=== PATIENT | male | born 1950 | race American Indian/Alaskan Native ===

== ENCOUNTER 2016-12-12 19:28 | Inpatient (IN) | payer MEDICARE, BC ==
--- NOTE | 2016-12-12 20:10 | ED PDOC ---
Arrival/HPI - General Historian: Patient - History of Present Illness Time/Duration: 1 week Symptom Onset: Gradual Symptom Course: Worsening Activities at Onset: Rest, Light Context: Home <HOLLY ORTIZ - Last Filed: 12/12/16 19:56> <Chaim Perkins - Last Filed: 12/14/16 22:57> - General Chief Complaint: Shortness Of Breath Time Seen by Provider: 12/12/16 19:30 - History of Present Illness Narrative History of Present Illness (Text): 12/12/16 19:56 Mr. Tellez is a 66 year old male with a past medical history significant for CHF, Atrial Fibrillation, COPD, CKD on HD (Monday, and Monday) and GERD who presents with a chief complaint of SOB and cough productive of clear and sometimes yellow sputum with associated rhinorrhea for one weeks duration. Patient states that he has been getting SOB after walking several feet, which is a change from his baseline of being able to walk several blocks without difficulty. He reports that his cough began around the same time and has been worsening since onset. 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 Patient also reports being out of his GERD medication for two weeks and has been having indigestion. Patient normally receives his healthcare in [place], where he lives, but he is in [place] visiting his daughter. He states that he was going to try and "wait it out" until his dialysis appointment tomorrow but decided that he best get checked out. He denies fever, chills, night sweats, weight loss, changes in his vision, ear pain, eye pain, sore throat, chest pain, palpitations, syncope, edema, hemoptysis, wheezing, abdominal pain, N/V, diarrhea, constipation, burning with urination, rash, or any numbness/tingling/weakness of any of his extremities. (HOLLY ORTIZ) Past Medical History - Provider Review Nursing Documentation Reviewed: Yes - Travel History Have you recently traveled outside US w/in the past 3 mons?: No - Past History Past History: Non-Contributing - Tetanus Immunization Tetanus Immunization: Unknown - Cardiac Hx Congestive Heart Failure: Yes - Renal Hx Dialysis: Yes (Monday, and Monday) - Psychiatric Hx Substance Use: No - Anesthesia Hx Anesthesia: Yes Hx Anesthesia Reactions: No Hx Malignant Hyperthermia: No <HOLLY ORTIZ - Last Filed: 12/12/16 19:56> Family/Social History - Physician Review Nursing Documentation Reviewed: Yes Family/Social History: Unknown Family HX Smoking Status: Former Smoker (Smoked 3ppd for 10 years prior to quitting at the age of 26) Hx Alcohol Use: Yes Frequency of alcohol use: Socially Hx Substance Use: No <HOLLY ORTIZ - Last Filed: 12/12/16 19:56> Allergies/Home Meds <HOLLY ORTIZ - Last Filed: 12/12/16 19:56> <Chaim Pekrins - Last Filed: 12/14/16 22:57> Allergies/Adverse Reactions: Allergies No Known Allergies Allergy (Verified 12/12/16 19:39) Home Medications: Home Meds Medication Instructions Recorded Confirmed Pantoprazole Sodium [Protonix] 40 mg PO DAILY 12/13/16 12/13/16 Sevelamer [Renagel] 800 mg PO TID 12/13/16 12/13/16 Review of Systems - Physician Review All systems were reviewed & negative as marked: Yes - Review of Systems Constitutional: Normal. absent: Weight Change, Fevers, Night Sweats Eyes: Normal. absent: Vision Changes, Eye Pain ENT: Rhinorrhea, Other (Denies ear pain). absent: Normal, Sore Throat Respiratory: SOB, Cough, Sputum (Clear with yellow occasionally ). absent: Normal, Wheezing Cardiovascular: KAUR (After walking a few feet). absent: Normal, Chest Pain, Palpitations, Edema, Syncope Gastrointestinal: Other (Endorses indigestion). absent: Normal, Abdominal Pain , Constipation, Diarrhea, Nausea, Vomiting Genitourinary Male: Normal. absent: Dysuria Musculoskeletal: Normal Skin: Normal. absent: Rash Neurological: Normal, Other (Denies numbness/tingling/weakness of any extremity) . absent: Focal Weakness Endocrine: Normal Hemo/Lymphatic: Normal Psychiatric: Normal <HOLLY ORTIZ - Last Filed: 12/12/16 19:56> Physical Exam Vital Signs Reviewed: Yes Temperature: Afebrile Blood Pressure: Normal Pulse: Regular Respiratory Rate: Normal Appearance: Positive for: Well-Appearing, Non-Toxic, Comfortable Pain Distress: None Mental Status: Positive for: Alert and Oriented X 3 - Systems Exam Head: Present: Atraumatic, Normocephalic Pupils: Present: PERRL Extroacular Muscles: Present: EOMI Conjunctiva: Present: Normal Mouth: Present: Moist Mucous Membranes Pharnyx: Present: ERYTHEMA. No: Normal, EXUDATE, TONSILS ENLARGED, Peritonsilar Swelling, Uvular Deviation, Muffled/Hoarse Voice, Soft Palate/ Uvular Edema Nose (External): Present: Atraumatic Nose (Internal): Present: Normal Inspection. No: No Active Bleeding, Rhinorrhea Neck: Present: Normal Range of Motion, Trachea Midline. No: Meningeal Signs, MIDLINE TENDERNESS, Paraspinal Tenderness, JVD, Lymphadenopathy Respiratory/Chest: Present: Good Air Exchange, Rhonchi (scattered rhonchi/ coarse breath sounds throught bilateral lung goznalez). No: Clear to Auscultation , Respiratory Distress, Accessory Muscle Use, Wheezes, Decreased Breath Sounds, Rales, Retracting, Tachypneic, Tender to Palpation, Other Cardiovascular: Present: Regular Rate and Rhythm, Normal S1, S2, Peripheal Pulses Present. No: Murmurs, Irregular Rhythm, Tachycardic, Bradycardic Abdomen: Present: Normal Bowel Sounds. No: Tenderness, Distention, Peritoneal Signs Back: Present: Normal Inspection. No: CVA Tenderness, Midline Tenderness, Paraspinal Tenderness Upper Extremity: Present: Normal Inspection, Normal ROM, NORMAL PULSES, Capillary Refill < 2s. No: Cyanosis, Edema Lower Extremity: Present: NORMAL PULSES, Normal ROM, Capillary Refill < 2 s, Other (Dried skin plaques to bilateral lower extremities extending to mid-calf) . No: Normal Inspection, Edema, CALF TENDERNESS Neurological: Present: GCS=15, CN II-XII Intact, Speech Normal Skin: Present: Warm, Dry, Rashes (refer to above LE section), Normal Color Lymphatic: No: Cervical Adenopathy Psychiatric: Present: Alert, Oriented x 3, Normal Insight, Normal Concentration <HOLLY ORTIZ - Last Filed: 12/12/16 19:56> Vital Signs Temp Pulse Resp BP Pulse Ox 12/13/16 00:10 18 96 12/13/16 00:06 98.1 F 73 18 138/59 L 96 12/12/16 19:42 18 12/12/16 19:28 97.8 F 70 20 140/64 93 L Medical Decision Making - Lab Interpretations I have reviewed the lab results: Yes - RAD Interpretation Deputy Sheriff/Investigator: Radiologist - EKG Interpretation Interpreted by ED Physician: Yes Type: 12 lead EKG <HOLLY ORTIZ - Last Filed: 12/12/16 19:56> <Chaim Perkins - Last Filed: 12/14/16 22:57> ED Course and Treatment: 12/12/16 20:16 Impression: 66 year old male with a past medical history significant for CHF, Atrial Fibrillation, COPD, CKD on HD (Monday, and Monday) and GERD who presents with a chief complaint of SOB and cough productive of clear and sometimes yellow sputum with associated rhinorrhea for one weeks duration Plan: -CBC, CMP, PT/INR, aPTT, Cardiac Iso's, BNP, VBG and Blood Culture -EKG -Chest X-Ray -O2 via NC at 3lpm -Reassess and disposition Prior Visits: No previous visits (HOLLY ORTIZ) Impression: Pt seen and evaluated with medical record assistant. Pt, whose past medical history includes CHF, atrial fibrillation, CKD on HD (Monday, and Monday) and GERD, presented for shortness of breath, productive cough with clear/ yellowish sputum, and rhinorrhea. Aware and agree with HPI, clinical findings, plan, and management. Plan: -- EKG -- Chest X-ray -- Labs, cardiac enzymes, BNP, blood cultures, VBG -- Protonix -- Reassess and disposition (Chaim Perkins) - Lab Interpretations Microbiology Results: Microbiology Results 12/12/16 20:15 Blood-Venous Blood Culture - Preliminary NO GROWTH AFTER 48 HOURS 12/12/16 20:00 Blood-Venous Blood Culture - Preliminary NO GROWTH AFTER 48 HOURS Lab Results: 12/13/16 06:28 12/13/16 06:28 Lab Results 12/13/16 21:19: POC Glucose (mg/dL) 104 12/13/16 16:18: POC Glucose (mg/dL) 171 H 12/13/16 09:35: Ferritin 648.0 12/13/16 09:35: Transferrin 199.33 L 12/13/16 09:35: Iron 196 H, TIBC 251 L, % Saturation 78 H 12/13/16 07:39: POC Glucose (mg/dL) 93 12/13/16 06:28: Lactate Dehydrogenase 413, Total Creatine Kinase 120, Troponin I 0.09, NT-Pro-B Natriuret Pep 72043 H 12/13/16 06:28: TSH 3rd Generation 0.10 L 12/13/16 06:28: Sodium 144, Chloride 101, Potassium 4.2, Carbon Dioxide 26, Anion Gap 21 H, BUN 74 H, Creatinine 12.1 H*, Est GFR ( Amer) 5, Est GFR (Non-Af Amer) 4, Random Glucose 92, Calcium 9.5 12/13/16 06:28: WBC 7.3, RBC 3.45 L, Hgb 9.9 L, Hct 31.9 L, MCV 92.5, MCH 28.7, MCHC 31.0, RDW 15.6 H, Plt Count 226, MPV 9.2 12/12/16 21:00: Hemoglobin A1c 6.3 12/12/16 21:00: Iron 95, TIBC 270, % Saturation 35 12/12/16 21:00: Triglycerides 93, Cholesterol 128 L, LDL Cholesterol Direct 31, HDL Cholesterol 38, Vitamin B12 992 H, Folate > 20.0 12/12/16 21:00: Sodium 143, Chloride 100, Potassium 4.3, Carbon Dioxide 27, Anion Gap 20, BUN 70 H, Creatinine 11.7 H*, Est GFR ( Amer) 5, Est GFR ( Non-Af Amer) 4, Random Glucose 78, Calcium 9.8, Total Bilirubin 0.6, AST 33, ALT 37, Alkaline Phosphatase 81, Lactate Dehydrogenase 422, Total Creatine Kinase 114, Troponin I 0.08, NT-Pro-B Natriuret Pep 84486 H, Total Protein 7.2, Albumin 4.1, Globulin 3.2, Albumin/Globulin Ratio 1.3 12/12/16 21:00: PT 11.2, INR 1.04, APTT 27.2 12/12/16 21:00: WBC 7.2, RBC 3.61, Hgb 10.4 L, Hct 33.3 L, MCV 92.2, MCH 28.8, MCHC 31.2, RDW 15.4 H, Plt Count 235, MPV 9.3, Gran % 68.8 H, Lymph % (Auto) 18.4 L, Clare % (Auto) 6.5 H, Eos % (Auto) 5.7 H, Baso % (Auto) 0.6, Gran # 4.94 , Lymph # 1.3, Clare # 0.5, Eos # 0.4, Baso # 0.04 12/12/16 20:19: pO2 40, VBG pH 7.31 L, VBG pCO2 57.0, VBG HCO3 28.7 H, VBG Total CO2 30.4 H, VBG O2 Sat (Calc) 78.0 H, VBG Base Excess 1.2, VBG Potassium 6.3 H*, Sodium 137.0, Chloride 103.0, Glucose 84, Lactate 1.8, FiO2 21.0, Venous Blood Potassium 6.3 H* - RAD Interpretation Radiology Orders: 12/12/16 19:53 CHEST PORTABLE [RAD] Stat - Medication Orders Current Medication Orders: Acetaminophen (Tylenol 325mg Tab) 650 mg PO Q4H PRN PRN Reason: Pain, Mild (1-3) Albuterol/Ipratropium (Duoneb 3 Mg/0.5 Mg (3 Ml) Ud) 3 ml IH [id number] PRN PRN Reason: Shortness of Breath Last Admin: 12/14/16 13:40 Dose: 3 ml Arformoterol Tartrate (Brovana) 15 mcg IH [id number] [facility] Last Admin: 12/14/16 07:51 Dose: 15 mcg Aspirin (Ecotrin) 81 mg PO DAILY [facility] Last Admin: 12/14/16 10:06 Dose: 81 mg Benzonatate (Tessalon Perles) 100 mg PO TID [facility] Last Admin: 12/14/16 19:52 Dose: Not Given Non-Admin Reason: Patient in Dialysis Budesonide (Pulmicort Respules) 0.5 mg IH [id number] [facility] Last Admin: 12/14/16 07:51 Dose: 0.5 mg Guaifenesin/Dextromethorphan (Robitussin Dm) 5 ml PO Q6H PRN PRN Reason: Cough Last Admin: 12/14/16 21:30 Dose: 5 ml Heparin Sodium (Porcine) (Heparin) 5,000 units SC Q8 ABEL PRN Reason: Protocol Last Admin: 12/14/16 21:25 Dose: 5,000 units Subcutaneous Administrations Document 12/14/16 21:25 KTB (Rec: 12/14/16 21:27 KTB [id number]) Injection Site MAR Injection Site Left Abdomen Charges for Administration # of Subcutaneous Administrations 1 Levofloxacin/Dextrose (Levaquin 250mg) 250 mg in 50 mls @ 50 mls/hr IVPB QOTHERDAY [facility] Insulin Human Regular (Humulin R Low) 0 units SC ACHS ABEL PRN Reason: Protocol Last Admin: 12/14/16 21:27 Dose: Not Given Non-Admin Reason: Blood Sugar Parameter MAR Blood Glucose Document 12/14/16 21:27 KTB (Rec: 12/14/16 21:27 KTB [id number]) Blood Glucose Finger Stick Blood Glucose (70-120) 136 Methylprednisolone (Solu-Medrol) 20 mg IVP Q12 [facility] Last Admin: 12/14/16 21:29 Dose: 20 mg IVP Administration Document 12/14/16 21:29 KTB (Rec: 12/14/16 21:30 KTB [id number]) Charges for Administration # of IVP Administrations 1 Montelukast Sodium (Singulair) 10 mg PO HS [facility] Last Admin: 12/14/16 21:28 Dose: 10 mg Pantoprazole Sodium (Protonix Ec Tab) 20 mg PO 0600 [facility] Last Admin: 12/14/16 05:12 Dose: 20 mg Sevelamer HCl (Renagel) 800 mg PO WM [facility] Last Admin: 12/14/16 19:52 Dose: Not Given Non-Admin Reason: Patient in Dialysis Discontinued Medications Acetaminophen (Tylenol 325mg Tab) 975 mg PO STAT STA Stop: 12/12/16 22:08 Last Admin: 12/12/16 22:51 Dose: Not Given Non-Admin Reason: Patient Refused Albuterol/Ipratropium (Duoneb 3 Mg/0.5 Mg (3 Ml) Ud) 3 ml IH [id number] [facility] Last Admin: 12/13/16 07:30 Dose: 3 ml Levofloxacin/Dextrose (Levaquin 750mg) 750 mg in 150 mls @ 100 mls/hr IVPB STAT STA Stop: 12/12/16 23:45 Last Admin: 12/13/16 00:19 Dose: 100 mls/hr eMAR Start Stop Document 12/13/16 00:19 HENRY (Rec: 12/13/16 00:20 [facility] [id number]) Intravenous Solution Start Date 12/12/16 Start Time 22:50 End Date 12/13/16 End time 00:20 Total Infusion Time 90 Levofloxacin/Dextrose (Levaquin 500mg) 500 mg in 100 mls @ 100 mls/hr IVPB DAILY ABEL Stop: 12/13/16 10:59 Last Admin: 12/13/16 18:31 Dose: 100 mls/hr eMAR Start Stop Document 12/13/16 18:31 GE (Rec: 12/13/16 18:31 GE [id number]) Intravenous Solution Start Date 12/13/16 Start Time 18:31 End Date 12/13/16 End time 19:31 Total Infusion Time 60 Methylprednisolone (Solu-Medrol) 40 mg IVP Q12 [facility] Last Admin: 12/14/16 10:06 Dose: 40 mg IVP Administration Document 12/14/16 10:06 J (Rec: 12/14/16 10:06 J [id number]) Charges for Administration # of IVP Administrations 1 Morphine Sulfate (Morphine) 2 mg IVP STAT STA Stop: 12/12/16 22:57 Last Admin: 12/12/16 23:26 Dose: 2 mg MAR Pain Assessment Document 12/12/16 23:26 EQ (Rec: 12/12/16 23:27 EQ [id number]) Pain Reassessment Is this a pain reassessment? No Sleep Is patient sleeping during reassessment? No Presence of Pain Presence of Pain Yes IVP Administration Document 12/12/16 23:26 EQ (Rec: 12/12/16 23:27 EQ [id number]) Charges for Administration # of IVP Administrations 1 Re-Assess: MAR Pain Assessment Document 12/13/16 00:26 GE (Rec: 12/13/16 07:42 GE [id number]) Pain Reassessment Is this a pain reassessment? Yes Sleep Is patient sleeping during reassessment? No Presence of Pain Presence of Pain No Pain Scale Used Pain Scale Used Numeric Pantoprazole Sodium (Protonix Ec Tab) 40 mg PO STAT STA Stop: 12/12/16 20:25 Last Admin: 12/12/16 21:39 Dose: 40 mg Sevelamer HCl (Renagel) 800 mg PO TID ABEL Last Admin: 10/17/17 18:31 Dose: 800 mg - PA / HONING MACHINE OPERATOR PRODUCTION / Resident Statement /DO has reviewed & agrees with the documentation as recorded. / has examined the patient and agrees with the treatment plan. <Chaim Perkins - Last Filed: 12/14/16 22:57> Disposition/Present on Arrival - Present on Arrival History of DVT/PE: No History of Uncontrolled Diabetes: No Urinary Catheter: No History of Decub. Ulcer: No History Surgical Site Infection Following: None <HOLLY ORTIZ - Last Filed: 12/12/16 19:56> - Present on Arrival Any Indicators Present on Arrival: No - Disposition Have Diagnosis and Disposition been Completed?: Yes Disposition Time: 22:00 <Chaim Perkins - Last Filed: 12/14/16 22:57> - Disposition Diagnosis: Pneumonia Disposition: HOSPITALIZED Condition: GOOD
[2016-12-12] MEDS ORDERED: Pantoprazole 40 mg EC Tab PO STA (20:24)
[2016-12-12 20:33] LABS: VENOUS BLOOD GAS BASE EXCESS 1.2 mmol/L (0.0-2.0); VENOUS BLOOD PH 7.31 (7.32-7.43)
[2016-12-12 21:14] LABS: BASO # 0.04 K/mm3 (0.0-2.0); BASO % 0.6 % (0.0-3.0); EOS # 0.4 (0.0-0.7); EOS % 5.7 % (1.5-5.0); GRAN # 4.94 (1.4-6.5); GRAN % 68.8 % (50.0-68.0); HEMATOCRIT 33.3 % (42.0-52.0); LYMPH # 1.3 (1.2-3.4); LYMPH % 18.4 % (22.0-35.0); MEAN CELL VOLUME 92.2 fl (80.0-105.0); MEAN CORPUSCULAR HEMOGLOBIN 28.8 pg (25.0-35.0); MEAN CORPUSCULAR HGB CONC 31.2 g/dl (31.0-37.0); MEAN PLATELET VOLUME 9.3 fl (7.0-11.0); MONO # 0.5 (0.1-0.6); MONO % 6.5 % (1.0-6.0); RED CELL DISTRIBUTION WIDTH 15.4 % (11.5-14.5); WHITE BLOOD COUNT 7.2 10^3/ul (4.5-11.0)
[2016-12-12 21:21] LABS: ALB/GLOB RATIO 1.3 (1.1-1.8); BILIRUBIN,TOTAL 0.6 mg/dL (0.2-1.3); CALCIUM 9.8 mg/dL (8.4-10.5); POTASSIUM 4.3 mmol/L (3.6-5.0); TOTAL PROTEIN 7.2 g/dL (5.8-8.3)
[2016-12-12 21:22] LABS: INR 1.04 (0.93-1.08); PARTIAL THROMBOPLASTIN TIME 27.2 Seconds (23.7-30.8)
[2016-12-12 21:32] LABS: TROPONIN I 0.08 ng/mL
[2016-12-12] MEDS: levoFLOXacin 750 mg in D5W 750 MG/150 ML BAG IVPB STA (22:51)
[2016-12-12] MEDS ORDERED: Morphine 2 mg/ml ISec IVP STA (22:56)
[2016-12-12] MEDS ORDERED: HYDROmorphone 0.5 mg/0.5 ml ISec IVP PRN (23:51)
[2016-12-13] MEDS: levoFLOXacin 750 mg in D5W 750 MG/150 ML BAG IVPB STA (00:19)
[2016-12-13 00:43] LABS: CHOLESTEROL 128 mg/dL (130-200); IRON 95 ug/dL (45-180)
[2016-12-13] MEDS: Albuterol-Ipratrop 3 mg / 0.5 (3 ml) UD IH SCH ×2 (02:23→07:30)
[2016-12-13 06:36] LABS: HEMATOCRIT 31.9 % (42.0-52.0); MEAN CELL VOLUME 92.5 fl (80.0-105.0); MEAN CORPUSCULAR HEMOGLOBIN 28.7 pg (25.0-35.0); MEAN PLATELET VOLUME 9.2 fl (7.0-11.0); RED CELL DISTRIBUTION WIDTH 15.6 % (11.5-14.5); WHITE BLOOD COUNT 7.3 10^3/ul (4.5-11.0)
[2016-12-13 06:58] LABS: CALCIUM 9.5 mg/dL (8.4-10.5); POTASSIUM 4.2 mmol/L (3.6-5.0)
[2016-12-13 07:04] LABS: TROPONIN I 0.09 ng/mL
[2016-12-13] MEDS: Insulin Reg-LOW-Coverage SC SCH ×4 (07:39→21:35)
--- NOTE | 2016-12-13 08:46 | RAD ---
HISTORY: sob COMPARISON: No prior. FINDINGS: LUNGS: No active pulmonary disease. PLEURA: No significant pleural effusion identified, no pneumothorax apparent. CARDIOVASCULAR: Normal. OSSEOUS STRUCTURES: No significant abnormalities. VISUALIZED UPPER ABDOMEN: Normal. OTHER FINDINGS: None. IMPRESSION: No active disease.
--- NOTE | 2016-12-13 09:07 | HP ---
CHIEF COMPLAINT: Shortness of breath and coughing. HISTORY OF PRESENT ILLNESS: Mr. Tellez is a 66-year-old, my private patient with significant history of congestive heart failure COPD, on hemodialysis, Monday, and Monday and GERD, who came to the emergency room with chief complaints of shortness of breath, coughing up productive of clear and sometimes yellow sputum with associated rhinorrhea for one week. The patient states that he was getting shortness of breath after walking several feet in cold air, which is changed from his baseline to being able to walk several blocks without difficulty. He report that his cough began around the same time and has been worsening since that. The patient has nebulizer treatment at home, but was not helping with minimal relief. The patient reports has history of GERD, indigestion, obesity. The patient used to live in [place], now he moves to [place] visiting his daughter. Actually the patient was getting sob at home and planed that when he will go for dialysis will take care of that, but shortness of breath increased, so he came. PAST MEDICAL HISTORY: As above; renal sufficiency, getting dialysis Monday, and Monday. FAMILY HISTORY: Father and mother noncontributory. HABITS: Former smoker. Used to smoke three packs per day for 10 years prior to quitting at the age of 26, history of ethanol abuse, alcohol abuse socially, substance abuse. ALLERGIES: THE PATIENT IS NOT ALLERGIC WITH ANY MEDICATIONS. HOME MEDICATIONS: Reviewed by me. REVIEW OF SYSTEMS: The patient was seen and examined in the emergency room, looking comfortable, except coughing and shortness of breath after walking a few minutes. No chest pain, palpitation, or edema. Having GERD and dyspepsia. No nausea, vomiting, or diarrhea. No dysuria. No rash. Denies numbness and tingling and weakness of the extremities. PHYSICAL EXAMINATION: VITAL SIGNS: Temperature 97.8, pulse 70, respiratory rate 20, blood pressure 140/67, pulse oxymetry of 93. HEENT: Head; normocephalic and atraumatic. Eyes; PERRLA. Extraocular muscles are intact. Conjunctivae are clear. Nose is patent. Mucous membranes are moist. NECK: Supple. No carotid bruits. No JVD or thyromegaly. CHEST: Bilaterally symmetrical. HEART: S1 and S2 positive. LUNGS: Positive wheezing bilaterally. ABDOMEN: Soft. Bowel sound positive. No organomegaly. EXTREMITIES: No edema. No cyanosis. NEUROLOGIC: The patient is awake and alert. Moving all 4 extremities. LABORATORY DATA: White blood cells 7.2, hemoglobin 10.4, hematocrit 33.3, platelets 235. Sodium 143, potassium 4.3, BUN 70, creatinine 11.7. BNP 24,500. ASSESSMENT AND PLAN: Mr. Shayan Tellez is a 66-year-old male with anemia; renal insufficiency, acute of chronic, getting dialysis; congestive heart failure; history of chronic obstructive pulmonary disease; asthma; atrial fibrillation; on hemodialysis, Monday, and Monday; gastroesophageal reflux disease; dyspepsia; history of shortness of breath. Gastrointestinal and deep venous thrombosis prophylaxis. Called pulmonary consult. We will follow up. Dione Tijerina MD MTDD
[2016-12-13 09:54] LABS: IRON 196 ug/dL (45-180)
[2016-12-13] MEDS ORDERED: levoFLOXacin 500 mg in D5W 500 MG/100 ML BAG IVPB SCH (10:00)
[2016-12-13] MEDS ORDERED: Fluticasone-Salmeterol 250-50mcg Diskus IH SCH (10:00)
[2016-12-13] MEDS: MethylPREDNISolone 40 mg Vial IVP SCH ×2 (12:12→21:13)
[2016-12-13 13:13] LABS: FOLATE > 20.0 ng/mL
--- NOTE | 2016-12-13 17:06 | CON ---
DATE: 12/13/2016 REFERRING PHYSICIAN: Dr. Tijerina. REASON FOR CONSULTATION: Continuation of dialysis secondary to end-stage renal disease. CHIEF COMPLAINT AND HISTORY OF PRESENT ILLNESS: This is a 66-year-old male, who has come into the hospital with past medical history of end-stage renal disease on hemodialysis Monday, , and Monday at [facility] in [place]. The patient says that he was complaining of shortness of breath. He was having cough it was productive at times with yellow sputum. He says he last dialyzed on Monday and his next dialysis is today. I had spoken to the patient's dialysis unit and the head nurse, Heriberto, states that the patient does have a history of nonadherence to his regimen. He has a history of atrial fibrillation, CHF, GERD. The patient says he was visiting his daughter here in [place] and was going back, but was not able to make it because he became more short of breath. He reports that he continues to have the cough. He has no complaints of any fevers or chills. No nausea. No vomiting. No weakness in the arms or in the legs. No headaches. No fevers. REVIEW OF SYSTEMS: All other review of symptoms are within normal limits except as mentioned. ALLERGIES: NO KNOWN DRUG ALLERGIES. HOME MEDICATIONS: Not known. SOCIAL HISTORY: He was the former smoker, he smoked 3 packs per day for 10 years and quit at the age of 26. FAMILY HISTORY: Noncontributory. PAST MEDICAL HISTORY: Please see above, but also end-stage renal disease, COPD and sleep apnea. PAST SURGICAL HISTORY: Left AV fistula. PHYSICAL EXAMINATION: VITAL SIGNS: Temperature is 97.6, pulse of 68, blood pressure is 128/65, respirations 20 and O2 saturations 97%. Height is 6 feet 1 inch and weight is 251 pounds. BMI is 33.2. GENERAL: The patient lying in bed, uncomfortable, and in no acute distress. HEENT: Atraumatic and normocephalic. Anicteric sclerae. Moist mucosa. [place] conjunctivae. No oral lesions. NECK: No JVD, anterior and posterior adenopathy, thyromegaly, or bruits. CARDIOVASCULAR: S1 and S2 regular. No murmur, rubs, or gallop. LUNGS: Clear to auscultation bilaterally. No wheezes, rales, or rhonchi. ABDOMEN: Bowel sounds are positive. Soft, nontender and nondistended. No hepatosplenomegaly. No rebound and no guarding NEUROLOGIC: No facial asymmetry. Tongue is midline. No uvula deviation. Power is 5/5 upper extremity and lower extremity. Sensation intact in upper extremity and lower extremity. PSYCHIATRIC: She is awake, alert and oriented x3. No anxiety or depression. She has normal affect. GENITOURINARY: No CVA tenderness. VASCULAR: 2+ pulses in the carotid pulses and pedal pulses. SKIN: No erythema or nodules SPINE: Shows normal curvature. EXTREMITIES. In the left arm there is a fistula with good with good trill and bruit. In lower extremities there is 1+ edema. LABORATORY DATA: Have been reviewed, hemoglobin is 10.4. The patient's INR is 1.04. He has a creatinine of 12.1 with a potassium of 4.2. His proBNP is 25,700. His LDL is 31. His TSH is 0.1. His iron saturation of 35%. IMAGING: His chest x-ray done, it shows no active disease. His EKG shows atrial fibrillation with a rate of 62. ASSESSMENT: 1. End-stage renal disease, on hemodialysis. 2. Left arm arteriovenous fistula. 3. Hypovolemia. 4. Anemia secondary to chronic kidney disease. 5. Secondary hyperparathyroidism. PLAN: The patient was given Protonix. He was given IV steroids. The patient is on nebulizer treatment. The patient is going for dialysis today. I did arrange dialysis orders with the unit. I spoke with Heriberto at [facility] dialysis, her number is #[phone]. The patient is currently on renal diet this should be continued. His iron saturation is normal. He does not require IV iron. We will try to do a 4-hour treatment although he says he does not like to do 4-hour treatment. We will try to remove fluids, so he can breath better. Also, the patient will most likely need to be on binders. I will place the patient on Renagel. We will re-evaluate tomorrow. He should continue his dialysis treatment at his unit. Thank you for allowing me to participate in care of your patient. Erik Neff MD [facility] # [id number]
[2016-12-13] MEDS: Budesonide 0.5 mg/2 ml Inhal Susp UD IH SCH (19:36)
[2016-12-13] MEDS: Arformoterol 15 mcg/2 ml Inh Sol IH SCH (19:36)
--- NOTE | 2016-12-13 22:20 | CARD ---
APPROVED REPORT EKG Measurement Heart [id number] <Conclusion> Atrial fibrillation Nonspecific intraventricular conduction delay T wave abnormality, consider lateral ischemia or digitalis effect Abnormal ECG
[2016-12-14] MEDS: guaiFENesin DM 100 mg-10 mg/5 ml UD PO PRN ×2 (00:38→21:30)
[2016-12-14] MEDS: Pantoprazole 20 mg EC Tab PO SCH (05:12)
--- NOTE | 2016-12-14 06:16 | CON ---
PULMONARY CONSULTATION DATE: 12/13/2016 REASON FOR CONSULT: Sleep apnea syndrome, chronic obstructive lung disease, renal failure. HISTORY OF PRESENT ILLNESS: This is a 66-year-old gentleman with past medical history significant for chronic obstructive lung disease; congestive heart failure; renal failure, dialysis dependent; history of GERD; suspected sleep apnea syndrome. Apparently, the [place] out of state, but visiting the daughter. He has increased shortness of breath, cough, sputum production. No hemoptysis, no hematemesis, no hematuria. Does have a leg swelling. PAST MEDICAL HISTORY: As per history of present illness. ALLERGIES: NONE KNOWN. SOCIAL HISTORY: Stopped smoking 3 years ago. Denies any alcohol use. FAMILY HISTORY: No significant cardiopulmonary disease reported. MEDICATIONS: He is on Brovana inhaled twice a day, DuoNeb q. 6 hours p.r.n., Ecotrin 81 mg daily, heparin 5000 units subcutaneous q. 8 hours, Levaquin 250 mg IV Monday and Monday, Pulmicort inhaled twice a day, Renagel 800 mg three times a day, Robitussin DM 5 mL q. 6 hours p.r.n., Singulair 10 mg daily, Solu-Medrol 40 mg q. 12 hours, Tylenol p.r.n. basis. REVIEW OF SYSTEMS: No headache, no rhinitis. Has a cough. No nausea, no vomiting, no diarrhea. No leg pain or leg swelling. PHYSICAL EXAMINATION: VITAL SIGNS: Afebrile, heart rate 68, respiratory rate is 20, blood pressure 128/65, pulse ox 97% on nasal cannula. HEENT: Moist mucous membrane. Crowded airway. Mallampati score IV. NECK: Supple. No JVD. LUNGS: Scattered rhonchi and wheezing. HEART: S1 and S2. ABDOMEN: Soft, nontender. No organomegaly. EXTREMITIES: No edema. NEUROLOGIC: Awake, alert, follow simple command. LABORATORY DATA: Shows hemoglobin 9.9, hematocrit 31.9, WBC 7.3, platelet is 226. INR 1.04. Blood gas shows VBG: PH 7.31, pCO2 of 40, O2 of 57, this is on room air. Sodium 144, potassium 4.2, chloride 101, bicarbonate 26, BUN 74, creatinine 12.1, glucose 92, calcium is 9.5, iron is 95, LDH is 413, proBNP is 25,700. Microbiology; blood culture and urine culture, there is no growth. Chest x-ray shows no active pulmonary disease. IMPRESSION AND PLAN: Chronic obstructive lung disease; renal failure, dialysis dependent. There is may be component of sleep apnea syndrome, gastroesophageal reflux disease. Rule out cardiac disease. History of atrial fibrillation. Continue inhaler and intravenous bronchodilator. Continue antibiotics. Add Tessalon Perles, proton inhibitor. Continue continuous positive airway pressure while sleeping. Will need pulmonary function test and attended sleep study upon discharge as an outpatient. Kathryn Soria MD
--- NOTE | 2016-12-14 07:26 | PN ---
DATE: SUBJECTIVE: The patient is seen and examined on the bedside, looking comfortable. No nausea, vomiting, or diarrhea. No hematuria or hematochezia. No swelling of the legs. No chest pain and no palpitations, but still coughing, sometimes bringing phlegm. Having little bit of pain with coughing. No fevers and no chills. PHYSICAL EXAMINATION: VITAL SIGNS: Temperature 98.0, pulse 79, blood pressure 130/70, respiratory rate 21. HEENT: Head is normocephalic and atraumatic. Eyes; PERRLA. Extraocular muscles are intact. Conjunctivae clear. Nose patent. Mucous membrane moist. NECK: Supple. No carotid bruits. No JVD or thyromegaly. CHEST: Bilaterally symmetrical. HEART: S1 and S2 positive. LUNGS: Positive wheezing bilaterally. ABDOMEN: Soft. Bowel sounds present. No organomegaly. EXTREMITIES: No edema. No cyanosis. NEUROLOGIC: The patient is awake and alert. Moving all four extremities. No focal deficits. MEDICATIONS: Brovana, Dilaudid, DuoNeb, Ecotrin, heparin, insulin, Levaquin, Pulmicort, Robitussin, Singulair, Solu-Medrol, Tylenol. LABORATORY DATA: White blood cell count 7.3, hemoglobin 9.9, hematocrit 31.9, platelets 226. Glucose 104, 171, and 196. Calcium 199.33. ASSESSMENT AND PLAN: Mr. Shayan Tellez is a 66-year-old male with anemia, hyperglycemia, renal insufficiency on hemodialysis, congestive heart failure, seen by Dr. Erik Neff, pattern ruler. The patient was resident of [place], recently moved to [place], history of atrial fibrillation, congestive heart failure, gastroesophageal reflux disease, left arm arteriovenous fistula, secondary hyperparathyroidism, chronic obstructive pulmonary disease, bronchitis. The patient is getting Protonix for GI prophylaxis. Got dialysis. Still coughing. History of asthma, Avastin. Reviewed Dr. Neff's notes. Repeat labs. Out of bed. Physical therapy. We will follow. Dione Tijerina MD [facility]
[2016-12-14] MEDS: Arformoterol 15 mcg/2 ml Inh Sol IH SCH (07:51)
[2016-12-14] MEDS: Budesonide 0.5 mg/2 ml Inhal Susp UD IH SCH (07:51)
[2016-12-14] MEDS: Albuterol-Ipratrop 3 mg / 0.5 (3 ml) UD IH PRN ×2 (07:52→13:40)
[2016-12-14] MEDS: Insulin Reg-LOW-Coverage SC SCH ×4 (07:59→21:27)
[2016-12-14] MEDS: MethylPREDNISolone 40 mg Vial IVP SCH ×2 (10:06→21:29)
--- NOTE | 2016-12-14 13:11 | PN ---
SUBJECTIVE: The patient has no complaints of any chest pain or shortness of breath. He says his breathing is better. His cough has improved. PHYSICAL EXAMINATION: VITAL SIGNS: Temperature is 98.8, pulse is 74, blood pressure is 120/50 and respirations 20. GENERAL: The patient is lying in bed, flat, comfortable. HEENT: No oral lesion. Anicteric sclerae. Moist mucosa. NECK: No JVD, adenopathy, or thyromegaly. CARDIOVASCULAR: S1 and S2, regular. No murmurs, rubs, or gallops. LUNGS: Clear to auscultation bilaterally. No wheeze, rales, or rhonchi. ABDOMEN: Bowel sounds are positive, soft, nontender and nondistended. EXTREMITIES: No cyanosis, clubbing or edema. LABORATORY DATA: White count of 7.3 and hemoglobin is 9.9. ASSESSMENT: 1. End-stage renal disease, on hemodialysis. 2. Diabetes type 2. 3. Hypertension. 4. Secondary hyperparathyroidism. 5. Anemia secondary to chronic kidney disease. 6. Left arm arteriovenous fistula. PLAN: The patient is currently comfortable. He is going to get another 2 hours of dialysis to try to remove more volume. He is hypovolemic because of nonadherence to his treatment regimen. He is going to be coming back to [place] for further treatment as a long-term patient in about one month. He is on heparin for DVT prophylaxis. He is going to continue his Renagel with meals. He is on steroids. He is going to be continuing his CPAP at home. We will repeat his blood work tomorrow. He will continue his regimen for dialysis, which is Monday, and Monday. His next full dialysis will be tomorrow. Erik Neff MD
--- NOTE | 2016-12-14 17:09 | PN ---
DATE: 12/14/2016 PULMONARY PROGRESS NOTE REFERRING PHYSICIAN: Dione Tijerina MD SUBJECTIVE: The patient is sitting side of the bed. Night was unremarkable. Tolerated BiPAP well. Feels better. Decreased cough, decreased shortness of breath. No nausea. No vomiting. No diarrhea. No leg pain or leg swelling. OBJECTIVE: GENERAL: in no acute distress. VITAL SIGNS: Temperature 98, heart rate 66, respiratory rate 20, blood pressure 142/81, and pulse oximetry is 97% on 2 L nasal cannula. HEENT: Moist mucous membrane. Crowded airway. Mallampati score is IV. NECK: Supple. No JVD. HEART: S1 and S2. LUNGS: Has a scattered rhonchi. ABDOMEN: Soft, nontender. No organomegaly. EXTREMITIES: Not much edema and the varicose veins. NEUROLOGIC: Awake, alert, follows simple commands. MEDICATIONS: He is on Brovana 15 mcg inhaled twice a day, DuoNeb q.6 hours p.r.n., Ecotrin 81 mg daily, heparin 5000 units subcutaneously q.8 hours, insulin coverage, Levaquin 250 mg daily, Protonix 20 mg daily, Pulmicort inhaled twice a day, Robitussin DM 5 mL q.6 hours p.r.n., Singulair 10 mg at bedtime, Solu-Medrol 40 mg q.12 hours, Tessalon Perles 100 mg 3 times a day, and Tylenol on a p.r.n. basis. LABORATORY DATA: Shows blood sugar this morning is 96. Microbiology, blood culture has been negative. IMPRESSION AND PLAN: Chronic obstructive lung disease, renal failure dialysis dependent, may have a component of sleep apnea syndrome, gastroesophageal reflux disease, and history of atrial fibrillation. From pulmonary point of view, doing okay. We will decrease Solu-Medrol, continue Tessalon Perles. We will have dialysis done today. Continue BiPAP upon discharge. Will need attendant sleep study. Thank you and we will follow with you. Kathryn Soria MD
[2016-12-15 01:11] VITALS: BP 157/80; PULSE 69; RESP 22; TEMP 98; O2SAT 98
[2016-12-15] MEDS: Pantoprazole 20 mg EC Tab PO SCH (06:10)
[2016-12-15 07:21] LABS: HEMATOCRIT 32.5 % (42.0-52.0); MEAN CELL VOLUME 90.5 fl (80.0-105.0); MEAN CORPUSCULAR HEMOGLOBIN 28.1 pg (25.0-35.0); MEAN CORPUSCULAR HGB CONC 31.1 g/dl (31.0-37.0); MEAN PLATELET VOLUME 9.4 fl (7.0-11.0); RED CELL DISTRIBUTION WIDTH 15.2 % (11.5-14.5); WHITE BLOOD COUNT 10.2 10^3/ul (4.5-11.0)
[2016-12-15 07:37] LABS: ALB/GLOB RATIO 1.4 (1.1-1.8); BILIRUBIN,TOTAL 0.5 mg/dL (0.2-1.3); CALCIUM 9.7 mg/dL (8.4-10.5); MAGNESIUM 2.6 mg/dL (1.7-2.2); PHOSPHOROUS 5.6 mg/dL (2.5-4.5); TOTAL PROTEIN 7.5 g/dL (5.8-8.3)
[2016-12-15 07:39] LABS: POTASSIUM 5.9 mmol/L (3.6-5.0)
[2016-12-15] MEDS: Budesonide 0.5 mg/2 ml Inhal Susp UD IH SCH (07:53)
[2016-12-15] MEDS: Arformoterol 15 mcg/2 ml Inh Sol IH SCH (07:53)
[2016-12-15] MEDS: Insulin Reg-LOW-Coverage SC SCH ×3 (08:20→17:15)
--- NOTE | 2016-12-15 08:31 | PN ---
DATE:12/14/2016 SUBJECTIVE: The patient is a 66-year-old male. The patient is seen and examined on the bedside, looking comfortable. No nausea, vomiting, or diarrhea. No hematuria or hematochezia. Having BiPAP. No headache, no dizziness, tolerated BiPAP very well. Decreased coughing with decreased shortness of breath. No fevers, no chills. PHYSICAL EXAMINATION: VITAL SIGNS: Temperature 98, heart rate 50, respirations 20, blood pressure 140/80, pulse oximetry 97% on 2 L nasal cannula. HEENT: Head; normocephalic and atraumatic. Eyes; PERRLA. Extraocular muscles are intact. Conjunctivae are clear. Nose is patent. Mucous membranes are moist. NECK: Supple. No carotid bruits. No JVD or thyromegaly. CHEST: Bilaterally symmetrical. HEART: S1 and S2 positive. LUNGS: Clear to auscultation. ABDOMEN: Soft. Bowel sounds present. No organomegaly. EXTREMITIES: No edema. No cyanosis. NEUROLOGIC: The patient is awake and alert. Follows simple commands. MEDICATIONS: The patient is on Brovana, DuoNeb, Ecotrin, heparin, insulin coverage, Levaquin, Protonix, Pulmicort, Robitussin, Singulair, Solu-Medrol, Tessalon Perles, Tylenol. LABORATORY DATA: We do not have recent labs today, but I reviewed old labs. ASSESSMENT AND PLAN: Mr. Tellez is a 66-year-old male with comorbid obesity, chronic history of lung disease, renal failure on hemodialysis three times a week, has sleep apnea syndrome, gastroesophageal reflux disease, history of atrial fibrillation, using BiPAP, tolerating BiPAP very well , grtting tapering dose of Solu-Medrol. Reviewed Dr. Soria's notes. Tessalsasha Maria. The patient will go for dialysis today and tomorrow. Continue BiPAP upon discharge. We will follow up. Dione Tijerina MD [facility]
[2016-12-15] MEDS ORDERED: levoFLOXacin 250 mg in D5W 250 MG/50 ML BAG IVPB SCH (10:00)
[2016-12-15] MEDS: MethylPREDNISolone 40 mg Vial IVP SCH (11:31)
[2016-12-15] MEDS ORDERED: Influenza Vaccine 60 mcg/0.5 mL SYR (4YR UP) IM ONE (17:14)
--- NOTE | 2016-12-16 00:18 | PN ---
PULMONARY PROGRESS NOTE DATE: 12/15/2016 REFERRING PHYSICIAN: Dione Tijerina MD SUBJECTIVE: He is sitting side of the bed, having dinner, feels better, and tolerated BiPAP well. No headache. No rhinitis. No nausea. No vomiting or diarrhea. No leg pain or leg swelling. OBJECTIVE: GENERAL: In no acute distress. VITAL SIGNS: Temperature is 98, heart rate is 69, respiratory rate is 20, blood pressure is 157/80, and pulse ox is 98% on 2 L nasal cannula. HEENT: Moist mucous membranes. Crowded airway. Mallampati score is 4. NECK: Supple. No JVD. HEART: S1 and S2. LUNGS: Has a poor airflow. ABDOMEN: Soft and nontender. No organomegaly. EXTREMITIES: No edema. NEUROLOGIC: Awake and alert. Follows simple commands. MEDICATIONS: Reviewed and no new medication reported since yesterday. LABORATORY DATA: Reviewed. Hemoglobin 10.1, hematocrit 32.5, and WBC 10.2. Sodium 137, potassium 5.9 that was hemolyzed, chloride 95, BUN 72, creatinine 10.3, phosphorus is 5.6, magnesium 2.6, AST 34, ALT 37, alk phos is 78, and albumin is 4.4. Microbiology; blood cultures, there have been no growth. IMPRESSION AND PLAN: Chronic obstructive lung disease; renal failure, dialysis dependent; sleep apnea syndrome; gastroesophageal reflux disease; and atrial fibrillation. From pulmonary point of view, doing okay. The patient did have a sleep study about 2 years ago lately, but not using continuous positive airway pressure and feels uncomfortable whether gained weight. While in the hospital, he did well on the bilevel positive airway pressure. We will schedule him outpatient, have apnea, have continuous positive airway pressure, and pulmonary function test. May discharge to home. Taper dose of steroids and inhaled bronchodilators and Nephrology followup. Thank you and we will follow with you. Kathryn Soria MD
--- NOTE | 2016-12-18 05:12 | DS ---
CHIEF COMPLAINT: Shortness of breath and coughing. HISTORY OF PRESENT ILLNESS: Mr. Shayan Tellez is a 66-year-old male with history of congestive heart failure; COPD; renal insufficiency, on hemodialysis Monday, , and Monday; GERD; dyspepsia, came to the emergency room, because of shortness of breath, yellow phlegm, associated with rhinorrhea for 1 week. The patient states that he was getting shortness of breath after walking several feet in cold air, which is changed from his baseline and to being able to walk several blocks without difficulty. He reports that the cough became around same time and that has been worsening since that time. The patient has nebulizer treatment at home, but not helping. The patient used to live in [place], now recently he moved to [place]. In [place] he has his daughter, actually he came to visit her, but decided live here. When we admitted the patient, had consult with Dr. Erik Neff, lumber sorter machine; Dr. Soria, electric blasting cap assembler with chest x-ray. The patient was given couple of times dialysis and got better, discharged home with prescriptions, followup primary care physician, electric blasting cap assembler and lumber sorter machine and continue dialysis at least 3 times a week. PAST MEDICAL HISTORY: Renal insufficiency on hemodialysis, getting dialysis 3 times a week, COPD, and asthma. FAMILY HISTORY: Father and mother noncontributory. HABITS: Former smoker, used to smokes 3 packs per day for 10 years, then he stopped 10 years ago, history of ethanol abuse, now he is drinking socially. No history of substance abuse. ALLERGIES: THE PATIENT IS NOT ALLERGIC TO ANY MEDICATIONS. MEDICATIONS: Home medications reviewed by me. REVIEW OF SYSTEMS: The patient was seen and examined at the bedside, looking comfortable. No nausea, vomiting, or diarrhea. No hematuria or hematochezia. No swelling of the legs. No chest pain, no palpitation. Cough is getting better. Yesterday got dialysis and today got dialysis and also shortness of breath is getting better. Tolerated BiPAP very well. No headache. No rhinitis. PHYSICAL EXAMINATION: VITAL SIGNS: Temperature 98, heart rate 69, respiratory rate 20, blood pressure 157/80, and pulse oximetry 98% on 2 L nasal cannula. HEENT: Head is normocephalic and atraumatic. Eyes; PERRLA. Extraocular muscles are intact. Conjunctivae are clear. Nose is patent. Mucous membranes are moist. NECK: Supple. No carotid bruits. No JVD or thyromegaly. CHEST: Bilaterally symmetrical. HEART: S1 and S2 positive. LUNGS: Clear to auscultation. ABDOMEN: Soft. Bowel sounds present. No organomegaly. EXTREMITIES: No edema. No cyanosis. NEUROLOGIC: The patient is awake and alert. Moving all 4 extremities. No focal deficits. MEDICATIONS: Reviewed by me. LABORATORY DATA: Hemoglobin 10.1, hematocrit 32.5, white blood cells 7.2. Sodium 137, potassium 5.9, BUN 72, creatinine 11.3. AST 34, ALT 37. Blood cultures are negative. ASSESSMENT AND PLAN: Mr. Shayan Tellez is a 66-year-old male with history of renal insufficiency on hemodialysis 3 times a week, history of chronic obstructive pulmonary disease, obesity, hypertension, came into [facility] for shortness of breath, most likely he has sleep apnea syndrome as per Dr. Soria, gastroesophageal reflux disease, atrial fibrillation. The patient had a sleep study done 2 years ago, but not using his continuous positive airway pressure and feels uncomfortable rather, gained weight, or need another study. In the hospital, he did well on bilevel positive airway pressure. The patient has diabetes mellitus type 2, secondary hyperparathyroidism, anemia secondary to chronic kidney disease, and left arm arteriovenous fistula. He is on heparin for DVT prophylaxis. He will go home with Renagel with meals. Tapering dose of steroid. Continue dialysis on 3 times a week Monday, and Monday. Next dialysis will be according to schedule. Prescription of medicines given. We will follow up. Dione Tijerina MD
== END 2016-12-15 18:39 | disposition home or self-care (01) | DRG 291 ==
LOC: ED 19:28 → ERH 22:24 → 2RSO 12-13 00:35 → 2RNO 12-13 00:36 → OBSVTOIN 12-13 21:47 → 3RNO 12-14 18:32
PROVIDERS: ADMIT Internal Medicine; ATTEND Internal Medicine
PROC: 5A09457 Assistance with Respiratory Ventilation, 24-96 Consecutive Hours, Continuous Positive Airway Pressure (ICD-10-PCS; 2016-12-13)
PROC: 3E0F7GC Introduction of Other Therapeutic Substance into Respiratory Tract, Via Natural or Artificial Opening (ICD-10-PCS; 2016-12-13)
PROC: 5A1D70Z Performance of Urinary Filtration, Intermittent, Less than 6 Hours Per Day (ICD-10-PCS; principal; 2016-12-14)
DX: I13.2 Hypertensive heart and chronic kidney disease with heart failure and with stage 5 chronic kidney disease, or end stage renal disease (principal); I50.9 Heart failure, unspecified; N18.6 End stage renal disease; E86.1 Hypovolemia; E11.22 Type 2 diabetes mellitus with diabetic chronic kidney disease; I48.91 Unspecified atrial fibrillation; E11.65 Type 2 diabetes mellitus with hyperglycemia; N25.81 Secondary hyperparathyroidism of renal origin; D63.1 Anemia in chronic kidney disease; K21.9 Gastro-esophageal reflux disease without esophagitis; G47.30 Sleep apnea, unspecified; E66.9 Obesity, unspecified; Z68.33 Body mass index [BMI] 33.0-33.9, adult; Z87.891 Personal history of nicotine dependence; Z99.2 Dependence on renal dialysis

== ENCOUNTER 2016-12-19 12:26 | Emergency (ER) | payer MEDICARE, BC ==
[2016-12-19 12:31] VITALS: BMI 33.0
--- NOTE | 2016-12-19 12:44 | ED PDOC ---
Arrival/HPI - General Historian: Patient - History of Present Illness Time/Duration: Prior to Arrival Symptom Onset: Gradual <Orlando Fields - Last Filed: 12/19/16 19:07> <Manish Claros - Last Filed: 12/19/16 19:48> - General Chief Complaint: Shortness Of Breath Time Seen by Provider: 12/19/16 12:28 - History of Present Illness Narrative History of Present Illness (Text): 12/19/16 12:40 Shayan Tellez is a 66 year old male, whose past medical history includes CHF, COPD, and renal disorder (currently on dialysis every Monday, Monday, and Monday), who presents to the emergency department requesting hemodialysis. Patient reports he was drinking all week and needs the excess fluid taken off. He contacted his global expansion sales director who advised him to come to the emergency department for dialysis. Patient currently denies any complaints. PMD: Dr. Tijerina (Orlando Fields) Past Medical History - Provider Review Nursing Documentation Reviewed: Yes - Past History Past History: Non-Contributing - Tetanus Immunization Tetanus Immunization: Unknown - Cardiac Hx Cardiac Arrhythmia: Yes (afib) Hx Congestive Heart Failure: Yes - Pulmonary Hx Chronic Obstructive Pulmonary Disease (COPD): Yes Hx Sleep Apnea: Yes - Renal Hx Renal Disorder: Yes Hx Dialysis: Yes ([facility] left arm shunt) - Musculoskeletal/Rheumatological Hx Falls: No - Gastrointestinal Hx Gastroesophageal Reflux: Yes - Psychiatric Hx Substance Use: No - Anesthesia Hx Anesthesia: Yes Hx Anesthesia Reactions: No Hx Malignant Hyperthermia: No <Orlando Fields - Last Filed: 12/19/16 19:07> Family/Social History - Physician Review Nursing Documentation Reviewed: Yes Family/Social History: Unknown Family HX Smoking Status: Former Smoker Hx Alcohol Use: Yes (social) Hx Substance Use: No <Orlando Fields - Last Filed: 12/19/16 19:07> Allergies/Home Meds <Orlando Fields - Last Filed: 12/19/16 19:07> <Manish Claros - Last Filed: 12/19/16 19:48> Allergies/Adverse Reactions: Allergies No Known Allergies Allergy (Verified 12/12/16 19:39) Review of Systems - Review of Systems Constitutional: absent: Fevers Respiratory: absent: SOB, Cough Cardiovascular: absent: Chest Pain Gastrointestinal: absent: Abdominal Pain Genitourinary Male: Other (requesting dialysis ). absent: Dysuria, Frequency Musculoskeletal: absent: Back Pain <Orlando Fields - Last Filed: 12/19/16 19:07> Physical Exam Vital Signs Reviewed: Yes Temperature: Afebrile Blood Pressure: Hypotensive Pulse: Regular Respiratory Rate: Normal Appearance: Positive for: Well-Appearing, Non-Toxic, Comfortable Pain Distress: None Mental Status: Positive for: Alert and Oriented X 3 - Systems Exam Head: Present: Atraumatic, Normocephalic Respiratory/Chest: Present: Good Air Exchange, Other (mild crackles at bases). No: Respiratory Distress, Accessory Muscle Use Cardiovascular: Present: Regular Rate and Rhythm, Normal S1, S2. No: Murmurs Abdomen: Present: Normal Bowel Sounds. No: Tenderness, Distention, Peritoneal Signs, Rebound, Guarding Lower Extremity: Present: Normal Inspection. No: Edema Neurological: Present: GCS=15, CN II-XII Intact, Speech Normal Skin: Present: Warm, Dry, Normal Color. No: Rashes Psychiatric: Present: Alert, Oriented x 3, Normal Insight, Normal Concentration <Orlando Fields - Last Filed: 12/19/16 19:07> Vital Signs Temp Pulse Resp BP Pulse Ox 12/19/16 15:56 97.4 F L 71 18 132/58 L 96 12/19/16 13:30 74 18 126/47 L 97 12/19/16 12:30 97.6 F 71 20 119/47 L 97 Medical Decision Making - EKG Interpretation Interpreted by ED Physician: Yes Type: 12 lead EKG <Orlando Fields - Last Filed: 12/19/16 19:07> <Manish Claros - Last Filed: 12/19/16 19:48> ED Course and Treatment: 12/19/16 12:48 Case was discussed with Dr. Jeffery. Patient will receive two hours of dialysis and then be discharged home. Patient is currently refusing any work up done in the emergency department. 12/19/16 13:03 EKG: Ordered, reviewed, and independently interpreted the EKG. Rate : 72 BPM Rhythm : Afib (h/o of afib) Interpretation : No ST-segment elevations or depressions, no T-wave inversions, normal intervals. 12/19/16 19:07 (Orlando Fields) 12/19/16 19:46 Case endorsed to me from .Pt. received HMD as per PMD request for SOB.Pt. as per refused any evaluation/labs.Signed AMA by .Currently back from HMD.Feels better. (Manish Claros) - Scribe Statement The provider has reviewed the documentation as recorded by the Scribe <Orlando Fields - Last Filed: 12/19/16 19:07> <Manish Claros - Last Filed: 12/19/16 19:48> - Scribe Statement Kathy Blake Provider Scribe Attestation: All medical record entries made by the Scribe were at my direction and personally dictated by me. I have reviewed the chart and agree that the record accurately reflects my personal performance of the history, physical exam, medical decision making, and the department course for this patient. I have also personally directed, reviewed, and agree with the discharge instructions and disposition. (Orlando Fields) Disposition/Present on Arrival - Present on Arrival History of DVT/PE: No History of Uncontrolled Diabetes: No Urinary Catheter: No History of Decub. Ulcer: No History Surgical Site Infection Following: None <Orlando Fields - Last Filed: 12/19/16 19:07> - Present on Arrival Any Indicators Present on Arrival: No - Disposition Have Diagnosis and Disposition been Completed?: Yes Disposition Time: 19:46 <Manish Claros - Last Filed: 12/19/16 19:48> - Disposition Diagnosis: CRF (chronic renal failure), Shortness of breath Disposition: AGAINST MEDICAL ADVICE Condition: STABLE Referrals: Erik Neff MD [Primary Care Provider] - Follow up with primary Forms: [employer] (Khmer)
[2016-12-19 13:34] VITALS: RESP 18
[2016-12-19 15:59] VITALS: BP 132/58; PULSE 71; TEMP 97.4; O2SAT 96
--- NOTE | 2016-12-20 09:49 | CARD ---
APPROVED REPORT EKG Measurement Heart [id number] <Conclusion> Atrial fibrillation Nonspecific intraventricular conduction delay ST & T wave abnormality c/w ischemia Wandering baseline Probably no change
== END 2016-12-19 19:46 | disposition left against medical advice (07) ==
LOC: ED 12:26
DX: N18.9 Chronic kidney disease, unspecified (principal); R06.02 Shortness of breath; I48.91 Unspecified atrial fibrillation; I50.9 Heart failure, unspecified; J44.9 Chronic obstructive pulmonary disease, unspecified; Z87.891 Personal history of nicotine dependence; Z99.2 Dependence on renal dialysis

== ENCOUNTER 2017-01-08 14:05 | Observation (INO) | payer MEDICARE, BC ==
[2017-01-08 14:10] VITALS: BMI 32.7
[2017-01-08] MEDS ORDERED: Oxycodone/Acetaminophen 5/325 mg Tab PO STA (15:20)
[2017-01-08 15:59] LABS: BASO # 0.01 K/mm3 (0.0-2.0); BASO % 0.2 % (0.0-3.0); EOS # 0.3 (0.0-0.7); EOS % 4.3 % (1.5-5.0); GRAN # 4.06 (1.4-6.5); GRAN % 64.3 % (50.0-68.0); HEMATOCRIT 34.7 % (42.0-52.0); LYMPH # 1.3 (1.2-3.4); MEAN CELL VOLUME 95.3 fl (80.0-105.0); MEAN CORPUSCULAR HEMOGLOBIN 29.1 pg (25.0-35.0); MEAN CORPUSCULAR HGB CONC 30.5 g/dl (31.0-37.0); MEAN PLATELET VOLUME 10.2 fl (7.0-11.0); MONO # 0.6 (0.1-0.6); MONO % 10.2 % (1.0-6.0); RED CELL DISTRIBUTION WIDTH 15.6 % (11.5-14.5); WHITE BLOOD COUNT 6.3 10^3/ul (4.5-11.0)
--- NOTE | 2017-01-08 16:19 | ED PDOC ---
Arrival/HPI - General Chief Complaint: Male Genitourinary Time Seen by Provider: 01/08/17 15:08 Historian: Patient - History of Present Illness Narrative History of Present Illness (Text): 01/08/17 16:14 A 66 year old male, whose past medical history includes CHF, COPD, and renal disorder (currently on dialysis every Monday, Monday, and Monday), presents to the emergency department with with a complaint of dysuria and hematuria. The patient states that 2 days ago he had a cystoscopy procedure done by Dr. Enoch Kincaid. The patient denies fevers, chills, headache, dizziness, chest pain, shortness of breath, dyspnea on exertion, cough, abdominal pain, nausea, vomiting, diarrhea, back pain, neck pain, urinary/bowel changes, or any other complaint. PMD: Dr. Tijerina Scrap Baller: Dr. Erik Neff Time/Duration: 1 week Symptom Onset: Sudden Symptom Course: Unchanged Activities at Onset: Rest, Light Context: Home Past Medical History - Provider Review Nursing Documentation Reviewed: Yes - Past History Past History: Non-Contributing - Infectious Disease Hx of Infectious Diseases: None - Tetanus Immunization Tetanus Immunization: Unknown - Reproductive Currently : No - Cardiac Hx Cardiac Disorders: Yes Hx Cardiac Arrhythmia: Yes (afib) Hx Congestive Heart Failure: Yes - Pulmonary Hx Respiratory Disorders: Yes Hx Chronic Obstructive Pulmonary Disease (COPD): Yes Hx Sleep Apnea: Yes - Neurological Hx Neurological Disorder: No - HEENT Hx HEENT Disorder: No - Renal Hx Renal Disorder: Yes Hx Dialysis: Yes ([facility] left arm shunt) Type of Dialysis Access: L FA Date of Last Dialysis Treatment: 01/07/17 - Endocrine/Metabolic Hx Endocrine Disorders: No - Hematological/Oncological Hx Blood Disorders: No - Integumentary Hx Dermatological Disorder: No - Musculoskeletal/Rheumatological Hx Musculoskeletal Disorders: No Hx Falls: No - Gastrointestinal Hx Gastrointestinal Disorders: No Hx Gastroesophageal Reflux: Yes - Genitourinary/Gynecological Hx Genitourinary Disorders: No - Psychiatric Hx Psychophysiologic Disorder: No Hx Substance Use: No - Surgical History Other/Comment: cystoscopy. L arm shunt for dialysis - Anesthesia Hx Anesthesia: Yes Hx Anesthesia Reactions: No Hx Malignant Hyperthermia: No Family/Social History - Physician Review Nursing Documentation Reviewed: Yes Family/Social History: No Known Family HX Smoking Status: Former Smoker Hx Alcohol Use: Yes (social) Hx Substance Use: No Allergies/Home Meds Allergies/Adverse Reactions: Allergies No Known Allergies Allergy (Verified 01/08/17 15:02) Review of Systems - Physician Review All systems were reviewed & negative as marked: Yes - Review of Systems Constitutional: absent: Fevers, Night Sweats Respiratory: absent: SOB, Cough Gastrointestinal: absent: Abdominal Pain, Stool Changes, Constipation, Diarrhea , Nausea Genitourinary Male: Dysuria, Hematuria Musculoskeletal: absent: Back Pain, Neck Pain Neurological: absent: Headache, Dizziness Physical Exam Vital Signs Reviewed: Yes Vital Signs Temp Pulse Resp BP Pulse Ox 01/08/17 17:10 78 18 138/71 98 01/08/17 15:53 85 18 145/74 98 01/08/17 14:22 98.0 F 94 H 18 150/82 97 Temperature: Afebrile Blood Pressure: Normal Pulse: Tachycardic Respiratory Rate: Normal Appearance: Positive for: Well-Appearing, Non-Toxic Pain Distress: None Mental Status: Positive for: Alert and Oriented X 3 - Systems Exam Head: Present: Atraumatic Pupils: Present: PERRL Extroacular Muscles: Present: EOMI Mouth: Present: Moist Mucous Membranes Pharnyx: Present: Normal Respiratory/Chest: Present: Clear to Auscultation Cardiovascular: Present: Regular Rate and Rhythm Abdomen: Present: Normal Bowel Sounds. No: Tenderness, Distention Genitourinary Male: Present: Normal External Genitalia. No: Penile Discharge, Testicle Tenderness, Penile Swelling, Masses, Erythema, Testicle Swelling Back: Present: Normal Inspection. No: CVA Tenderness, Midline Tenderness Upper Extremity: Present: Normal Inspection Lower Extremity: Present: Normal Inspection Neurological: Present: GCS=15, CN II-XII Intact, Speech Normal, Motor Func Grossly Intact, Normal Sensory Function Skin: Present: Warm Psychiatric: Present: Alert, Oriented x 3, Normal Insight, Normal Concentration Medical Decision Making ED Course and Treatment: 01/08/17 16:20 Impression: A 66 year old male presents to the emergency department for hematuria and dysuria s/p a cystoscopy procedure. Differential Diagnosis included but are not limited to: Hematuria secondary to recent cystoscopy. Plan: -- Percocet -- Labs -- Urinalysis and Urine Culture -- Reassess and disposition Prior Visits: Notes and results from previous visits were reviewed. Patient was last seen in the emergency department on 12/19/2016. The patient was seen in the emergency department requesting hemodialysis. Patient left against medical advice. Progress Notes: Labs reviewed. UA negative for UTI but blood noted. Case discussed with Dr. Tijerina who will place the patient on observation. She placed a consult for urology. Patient is hemodynamically stable and will be admitted to the medical floor. Pain is controlled. - Lab Interpretations Lab Results: 01/08/17 15:20 Lab Results 01/08/17 15:20: WBC 6.3 D, RBC 3.64, Hgb 10.6 L, Hct 34.7 L, MCV 95.3 D, MCH 29.1, MCHC 30.5 L, RDW 15.6 H, Plt Count 199, MPV 10.2, Gran % 64.3, Lymph % ( Auto) 21.0 L, Bartholomew % (Auto) 10.2 H, Eos % (Auto) 4.3, Baso % (Auto) 0.2, Gran # 4.06, Lymph # 1.3, Bartholomew # 0.6, Eos # 0.3, Baso # 0.01 - Medication Orders Current Medication Orders: Albuterol/Ipratropium (Duoneb 3 Mg/0.5 Mg (3 Ml) Ud) 3 ml IH [id number] ABEL Arformoterol Tartrate (Brovana) 15 mcg IH [id number] ABEL Aspirin (Ecotrin) 81 mg PO DAILY ABEL Insulin Human Regular (Humulin R Low) 0 units SC ACHS ABEL PRN Reason: Protocol Montelukast Sodium (Singulair) 10 mg PO HS ABEL Pantoprazole Sodium (Protonix Ec Tab) 20 mg PO 0600 ABEL Sevelamer HCl (Renagel) 800 mg PO WM ABEL Discontinued Medications Oxycodone/Acetaminophen (Percocet 5/325 Mg Tab) 2 tab PO STAT STA Stop: 01/08/17 15:21 Last Admin: 01/08/17 15:54 Dose: 2 tab MAR Pain Assessment Document 01/08/17 15:54 SF (Rec: 01/08/17 15:54 SF [id number]) Pain Reassessment Is this a pain reassessment? Yes Sleep Is patient sleeping during reassessment? No Presence of Pain Presence of Pain Yes - Scribe Statement The provider has reviewed the documentation as recorded by the John Grayson Provider [place] Attestation: All medical record entries made by the [place]a were at my direction and personally dictated by me. I have reviewed the chart and agree that the record accurately reflects my personal performance of the history, physical exam, medical decision making, and the department course for this patient. I have also personally directed, reviewed, and agree with the discharge instructions and disposition. Disposition/Present on Arrival - Present on Arrival Any Indicators Present on Arrival: No History of DVT/PE: No History of Uncontrolled Diabetes: No Urinary Catheter: No History of Decub. Ulcer: No History Surgical Site Infection Following: None - Disposition Have Diagnosis and Disposition been Completed?: Yes Diagnosis: Gross hematuria Disposition: HOSPITALIZED Disposition Time: 17:11 Patient Plan: Observation Condition: FAIR
[2017-01-08 17:44] LABS: CALCIUM 10.3 mg/dL (8.4-10.5); POTASSIUM 4.2 mmol/L (3.6-5.0)
[2017-01-08 17:53] LABS: PH,URINE 8.5 (4.7-8.0); URINE BILIRUBIN SMALL (NEGATIVE); URINE BLOOD LARGE (NEGATIVE); URINE GLUCOSE (UA) NEGATIVE (NEGATIVE); URINE KETONE NEGATIVE (NEGATIVE); URINE LEUKOCYTE ESTERASE MODERATE Leu/uL (NEGATIVE); URINE PROTEIN >=300 mg/dL (<30 mg/dL)
[2017-01-08 17:58] LABS: URINE APPEARANCE TURBID (CLEAR); URINE COLOR RED (YELLOW)
[2017-01-08 17:59] LABS: URINE EPITHELIAL CELLS 0 - 2 /hpf (0-5); URINE RBC TNTC /hpf (0-2); URINE WBC 0 - 2 /hpf (0-6)
[2017-01-08 18:00] LABS: URINE BACTERIA FEW (NEG)
[2017-01-08 19:21] LABS: CHOLESTEROL 130 mg/dL (130-200)
[2017-01-08 20:38] VITALS: RESP 20
[2017-01-08] MEDS ORDERED: HYDROmorphone 0.5 mg/0.5 ml ISec IVP PRN (21:11)
[2017-01-08] MEDS: Albuterol-Ipratrop 3 mg / 0.5 (3 ml) UD IH SCH (21:20)
[2017-01-08] MEDS: Arformoterol 15 mcg/2 ml Inh Sol IH SCH (21:20)
[2017-01-09] MEDS: Albuterol-Ipratrop 3 mg / 0.5 (3 ml) UD IH SCH ×3 (02:30→13:58)
--- NOTE | 2017-01-09 03:58 | HP ---
CHIEF COMPLAINT: Hematuria with clots. HISTORY OF PRESENT ILLNESS: Mr. Geoff Downey is a 66-year-old male with past medical history of congestive heart failure, COPD, renal disorder, currently on dialysis Monday, Monday and Monday, came to the emergency room with complaint of dysuria, hematuria with clots. The patient says that 2 days ago, he had cystoscopy procedure done by Dr. Enoch Levi in [place]. The patient said that after that, he started bleeding from his genitalia with clots and up to now, he is still bleeding and is painful, even he do not want to pee because it is painful, but no fever or chills. No headache. No dizziness. No shortness of breath. No dyspnea. No cough. No abdominal pain. No nausea, vomiting or diarrhea. No back pain. The patient was seen and examined in the emergency room by me. PAST MEDICAL HISTORY: As above. History of atrial fibrillation, congestive heart failure, COPD, sleep apnea, renal disorder, has shunt on the left arm, getting 3 times a week dialysis, BPH, has cystoscopy done in [place]. FAMILY HISTORY: Father and mother noncontributory. HABITS: Former smoker, now quit. Alcohol, yes socially. Drugs, no. ALLERGIES: THE PATIENT IS NOT ALLERGIC TO ANY MEDICATIONS. REVIEW OF SYSTEMS: The patient was seen and examined on the bedside in the ER. No fever, no chills. No shortness of breath. No coughing. No abdominal pain, stool changes, constipation, diarrhea or nausea. Having dysuria and hematuria with clot as per patient. Has back pain, neck pain, headache and dizziness. PHYSICAL EXAMINATION: VITAL SIGNS: Temperature 98.0, pulse is 94, respiratory rate 18, blood pressure 150/82 and pulse oximetry 97%. HEENT: Head is normocephalic and atraumatic. Eyes; PERRLA. Extraocular movements are intact. Conjunctivae are clear. Nose is patent. Mucous membranes are moist. NECK: Supple. No carotid bruits, JVD, or thyromegaly. CHEST: Bilaterally symmetrical. HEART: S1 and S2 positive. LUNGS: Clear to auscultation. ABDOMEN: Soft. Bowel sounds present. No organomegaly. EXTREMITIES: No edema. No cyanosis. NEUROLOGICAL: The patient is awake and alert. Moving all 4 extremities. No focal deficits. LABORATORY DATA: White blood cell 6.3, hemoglobin 10.6, hematocrit 32.7, platelets 199. Sodium 140, potassium 4.2, BUN 44, creatinine 9.1, calcium 10.3. Urine, pending. ASSESSMENT AND PLAN: Mr. Geoff Downey is a 66-year-old male with benign prostatic hypertrophy, went for cystoscopy from his urologist, after that he has dysuria, hematuria with clots; history of congestive heart failure; chronic obstructive pulmonary disease; renal insufficiency, on hemodialysis 3 times a week; gastroesophageal reflux disease; dyspepsia; obesity and asthma. Called Urology consult with Dr. Nelson. We will observe 24 hours. Gastrointestinal and deep venous thrombosis prophylaxis. Repeat labs. We will followup. Dione Tijerina MD
[2017-01-09] MEDS ORDERED: Pantoprazole 20 mg EC Tab PO SCH (06:00)
[2017-01-09 06:29] LABS: HEMATOCRIT 32.5 % (42.0-52.0); MEAN CORPUSCULAR HEMOGLOBIN 28.7 pg (25.0-35.0); MEAN CORPUSCULAR HGB CONC 30.2 g/dl (31.0-37.0); MEAN PLATELET VOLUME 9.3 fl (7.0-11.0); RED CELL DISTRIBUTION WIDTH 15.6 % (11.5-14.5); WHITE BLOOD COUNT 6.1 10^3/ul (4.5-11.0)
[2017-01-09 06:49] LABS: IRON 56 ug/dL (45-180)
[2017-01-09 07:10] LABS: CALCIUM 10.3 mg/dL (8.4-10.5); POTASSIUM 3.8 mmol/L (3.6-5.0)
[2017-01-09] MEDS: Insulin Reg-LOW-Coverage SC SCH ×2 (07:30→11:30)
[2017-01-09 08:06] VITALS: BP 127/62; PULSE 55; TEMP 97.7; O2SAT 100
[2017-01-09] MEDS: Arformoterol 15 mcg/2 ml Inh Sol IH SCH (08:20)
[2017-01-09] MEDS ORDERED: Oxycodone/Acetaminophen 5/325 mg Tab PO STA (10:43)
[2017-01-09 12:25] LABS: FOLATE 15.5 ng/mL
--- NOTE | 2017-01-09 19:21 | CON ---
GENITOURINARY CONSULTATION DATE: 01/09/2017 CHIEF COMPLAINT: Hematuria. HISTORY OF PRESENT ILLNESS: This is a 66-year-old man, who has a history of chronic renal failure on hemodialysis, he had a cystoscopy done by his urologist in [facility] several days ago, done under local and CAT also has been done previously, the urologist told him he had to look in his bladder, apparently, he did not find anything significantly in his bladder,but the patient developed some hematuria with some clots. Subsequently,he does void, although not a lot, he does void some urine. The urine is now clearing. He has no fever or chills. He still has some mild dysuria. PAST MEDICAL HISTORY: Significant for atrial fibrillation, congestive heart failure, COPD, and dialysis. FAMILY HISTORY: Noncontributory. SOCIAL HISTORY: He is a former smoker. He drinks socially. ALLERGIES: HE HAS NO ALLERGIES. REVIEW OF SYSTEMS: Currently, no symptoms referable to the head, eyes, ears, nose or throat. No cardiac symptoms. He does have some mild shortness of breath and is on oxygen. No abdominal pain, No psychiatric complaints. No dermatologic complaints. PHYSICAL EXAMINATION: VITAL SIGNS: Shows him to be afebrile, pulse is 55, blood pressure is 127/62, and respirations are 20. HEENT: Normocephalic. Sclerae are clear. Conjunctivae are non-injected. BACK: No CVA pain. ABDOMEN: No hepatosplenomegaly, rebound, or guarding. GENITALIA: Unremarkable. SKIN: No purpura or edema. LABORATORY DATA: Lab work shows a white count of 6100, hemoglobin of 9.8 and creatinine is 10.6. Blood cultures were negative. IMPRESSION AND PLAN: I discussed with the patient the fact that he had a recent cystoscopy which according to the patient, the doctors did not comment on finding anything significant,just some mild prostate enlargement. His urine s clearing. He is planning on moving to [place] and will followup with the urologist of his choosing. He gave me the name of his urologist who did the cystoscopy Dr. Enoch Fabian in [facility] and we told the patient if he does see us to have his records transfer to us. A urine culture has been ordered. The patient currently is not on any antibiotics and he is afebrile. We will await for the culture to come back. Mason Nelson MD 01/09/2017
--- NOTE | 2017-01-11 08:50 | DS ---
CHIEF COMPLAINT: Blood in the urine with clots. HISTORY OF PRESENT ILLNESS: Mr. Shayan Tellez is a 66-year-old male with past medical history of COPD; congestive heart failure; renal disorder, on hemodialysis 3 times a week; BPH, went to his urologist's office a couple of days ago, a cystoscopy and procedure were done. After that, he started bleeding and after the bleeding, it was too much of clots, he came to [facility] Emergency Room. We admitted the patient and then Urology and Cardiology consulted. The patient was seen by the Urology, Dr. Nelson, who cleared him for discharge as he is doing better and my office talked to patient's and they wanted to go home and follow up as outpatient. PAST MEDICAL HISTORY: Atrial fibrillation; congestive heart failure; COPD; sleep apnea; renal disorder, dialysis 3 times a week; BPH, has cystoscopy done in [place]. FAMILY HISTORY: Father and mother noncontributory. HABITS: Former smoker, now quit. Alcohol, yes, socially. Drugs, no. ALLERGIES: THE PATIENT IS NOT ALLERGIC TO ANY MEDICATIONS. HOME MEDICATIONS: Reviewed by me. REVIEW OF SYSTEMS: The patient was seen and examined at the bedside, looking comfortable. No nausea, vomiting, or diarrhea. No hematuria or hematochezia. No swelling of the legs. No chest pain or palpitation. Urine is clear. No fever. No chills. PHYSICAL EXAMINATION: VITAL SIGNS: Temperature 97.7, pulse 55, blood pressure 127/62, respiratory rate 20. HEENT: Head is normocephalic and atraumatic. Eyes; PERRLA. Extraocular muscles are intact. Conjunctivae are clear. Nose is patent. Mucous membranes are moist. NECK: Supple. No carotid bruits. No JVD or thyromegaly. CHEST: Bilaterally symmetrical. HEART: S1 and S2 positive. LUNGS: Clear to auscultation. ABDOMEN: Soft. Bowel sounds present. No organomegaly. EXTREMITIES: No edema. No cyanosis. NEUROLOGIC: The patient is awake and alert. Moving all 4 extremities. No focal deficits. MEDICATIONS: Brovana, Dilaudid, DuoNeb, Ecotrin, insulin, Protonix Dione Tijerina MD
== END 2017-01-09 15:35 | disposition home or self-care (01) ==
LOC: ED 14:05 → ERH 17:11 → 3RNO 18:29
PROVIDERS: ADMIT Internal Medicine; ATTEND Internal Medicine
DX: R31.0 Gross hematuria (principal); N18.6 End stage renal disease; J44.9 Chronic obstructive pulmonary disease, unspecified; I50.9 Heart failure, unspecified; I48.91 Unspecified atrial fibrillation; N40.0 Benign prostatic hyperplasia without lower urinary tract symptoms; G47.30 Sleep apnea, unspecified; Z99.2 Dependence on renal dialysis; K21.9 Gastro-esophageal reflux disease without esophagitis; E66.9 Obesity, unspecified; Z68.32 Body mass index [BMI] 32.0-32.9, adult; Z87.891 Personal history of nicotine dependence
CPT/HCPCS: 36415; 80048; 80061; 81001; 82607; 82746; 82948; 83036; 83540; 83550; 84443; 85025; 85027; 87086; 94640; 94660; 94760; 99284; G0378; J1170

== ENCOUNTER 2017-02-28 00:43 | Observation (INO) | payer MEDICARE, BC ==
--- NOTE | 2017-02-28 01:20 | ED PDOC ---
Arrival/HPI - General Time Seen by Provider: 02/28/17 00:57 Historian: Patient - History of Present Illness Narrative History of Present Illness (Text): 02/28/17 01:20 Shayan Tellez is a 66 year old male, whose past medical history includes atrial fibrillation, CHF, COPD, sleep apnea, and renal disorder on dialysis, who presents to the Emergency department status post syncopal episode. Patient states after he stood up from bed yesterday evening he lost consciousness and fell to the ground. Patient states he was unconscious for approximately 2-3 minutes. Patient now complaining of right elbow pain and left knee pain. Patient notes he was congested throughout the day. Patient denies any fever, chills, chest pain, shortness of breath, nausea, vomiting, back pain, neck pain , headache, dizziness, or any other complaints. PMD: Dr. Misty Tijerina Time/Duration: Other (tonight) Symptom Onset: Gradual Symptom Course: Unchanged Activities at Onset: Light Context: Home Past Medical History - Provider Review Nursing Documentation Reviewed: Yes - Past History Past History: Non-Contributing - Infectious Disease Hx of Infectious Diseases: None - Tetanus Immunization Tetanus Immunization: Unknown - Cardiac Hx Cardiac Disorders: Yes Hx Cardiac Arrhythmia: Yes (afib) Hx Congestive Heart Failure: Yes - Pulmonary Hx Respiratory Disorders: Yes Hx Chronic Obstructive Pulmonary Disease (COPD): Yes Hx Sleep Apnea: Yes - Neurological Hx Neurological Disorder: No - HEENT Hx HEENT Disorder: No - Renal Hx Renal Disorder: Yes Hx Dialysis: Yes ([facility]S left arm shunt) Date of Last Dialysis Treatment: 01/07/17 - Endocrine/Metabolic Hx Endocrine Disorders: No - Hematological/Oncological Hx Blood Disorders: No - Integumentary Hx Dermatological Disorder: No - Musculoskeletal/Rheumatological Hx Musculoskeletal Disorders: No Hx Falls: No - Gastrointestinal Hx Gastrointestinal Disorders: No Hx Gastroesophageal Reflux: Yes - Genitourinary/Gynecological Hx Genitourinary Disorders: No - Psychiatric Hx Psychophysiologic Disorder: No Hx Substance Use: No - Surgical History Other/Comment: cystoscopy. L arm shunt for dialysis - Anesthesia Hx Anesthesia: Yes Hx Anesthesia Reactions: No Hx Malignant Hyperthermia: No Family/Social History - Physician Review Nursing Documentation Reviewed: Yes Family/Social History: Unknown Family HX Smoking Status: Former Smoker Hx Alcohol Use: Yes (social) Hx Substance Use: No Allergies/Home Meds Allergies/Adverse Reactions: Allergies No Known Allergies Allergy (Verified 01/08/17 15:02) Review of Systems - Physician Review All systems were reviewed & negative as marked: Yes - Review of Systems Constitutional: Normal. absent: Fevers Eyes: Normal ENT: Other (+congestion) Respiratory: Normal. absent: SOB, Cough Cardiovascular: Normal. absent: Chest Pain Gastrointestinal: Normal. absent: Abdominal Pain, Diarrhea, Nausea, Vomiting Genitourinary Male: Normal. absent: Dysuria, Frequency, Hematuria, Urinary Output Changes Musculoskeletal: Arthralgias (+right elbow pain, +right knee pain). absent: Back Pain, Neck Pain Skin: Normal. absent: Rash Neurological: Normal. absent: Headache, Dizziness Endocrine: Normal Hemo/Lymphatic: Normal Psychiatric: Normal Physical Exam Vital Signs Reviewed: Yes Temperature: Afebrile Blood Pressure: Normal Pulse: Regular Respiratory Rate: Normal Appearance: Positive for: Well-Appearing, Non-Toxic, Comfortable Pain Distress: None Mental Status: Positive for: Alert and Oriented X 3 - Systems Exam Head: Present: Atraumatic, Normocephalic Pupils: Present: PERRL Extroacular Muscles: Present: EOMI Conjunctiva: Present: Normal Mouth: Present: Moist Mucous Membranes Neck: Present: Normal Range of Motion. No: Meningeal Signs, MIDLINE TENDERNESS , Paraspinal Tenderness Respiratory/Chest: Present: Clear to Auscultation, Good Air Exchange. No: Respiratory Distress, Accessory Muscle Use Cardiovascular: Present: Regular Rate and Rhythm, Normal S1, S2. No: Murmurs Abdomen: Present: Normal Bowel Sounds. No: Tenderness, Distention, Peritoneal Signs Back: Present: Normal Inspection Upper Extremity: Present: Normal ROM, NORMAL PULSES, Swelling (Swelling to right elbow), Neurovascularly Intact, Capillary Refill < 2s. No: Cyanosis, Edema, Tenderness, Temperature Abnormalties Lower Extremity: Present: NORMAL PULSES, Normal ROM (Minimal discomfort with flexion/extension of left knee), Neurovascularly Intact, Capillary Refill < 2 s. No: Edema, Swelling, Erythema, Deformity Neurological: Present: GCS=15, CN II-XII Intact, Speech Normal Skin: Present: Warm, Dry, Normal Color. No: Rashes Psychiatric: Present: Alert, Oriented x 3, Normal Insight, Normal Concentration Medical Decision Making ED Course and Treatment: 02/28/17 01:20 Impression: 66 year old male presents s/p syncopal episodes with right elbow and left knee pain. Plan: -- CT Head w/o contrast -- XR Right Elbow -- XR Left Knee -- EKG -- Chest X-ray -- Labs, cardiac enzymes -- Percocet -- Reassess and disposition Progress Notes: Reviewed EKG, atrial fibrillation at 72 bpm. Incomplete LBBB. Non-specific T wave changes. Unchanged from previous on 12/19/2016. 02/28/17 03:54 Reviewed radiology, Chest X-ray shows cardiomegaly. XR Left Knee shows chronic arthritic changes. XR Right Elbow shows chronic arthritic changes, soft tissue swelling to posterior elbow. 02/28/17 04:04 CT Head shows: Brain: Xmfd-[id number]-[id number] atrophy. No intracranial hemorrhage. No mass. No definite edema. Ventricles: No hydrocephalus. Bones/joints: No acute fracture. Soft tissues: Unremarkable. Vasculature: Mild atherosclerotic disease of intracranial arteries. Sinuses: Complete opacification of RIGHT frontal sinus. Scattered minimal mucosal thickening of ethmoid sinuses. Mastoid air cells: No mastoid effusion. Orbits: Proptosis. IMPRESSION: 1. No definite acute intracranial abnormality. 2. Incidental/non-acute findings are described above. 02/28/17 04:[address] Tijerina, who is aware and agrees with plan. Accepts pt in to her service. Pt will go to Telemetry observation for syncope. Requests Dr. Saez, Dr. Bennett, and Dr. Myers on consult. - Lab Interpretations Lab Results: 02/28/17 01:30 02/28/17 02:35 Lab Results 02/28/17 02:35: Sodium 140, Potassium 5.2 H, Chloride 98, Carbon Dioxide 21, Anion Gap 25 H, BUN 97 H, Creatinine 13.0 H*, Est GFR ( Amer) 5, Est GFR (Non-Af Amer) 4, Random Glucose 89, Calcium 9.6, Total Bilirubin 0.5, AST 24, ALT 33, Alkaline Phosphatase 67, Lactate Dehydrogenase 372, Total Creatine Kinase 75, Troponin I 0.10, Total Protein 7.3, Albumin 4.0, Globulin 3.4, Albumin/Globulin Ratio 1.2 02/28/17 02:35: PT 13.2 H, INR 1.21 H, APTT 30.8 02/28/17 01:30: WBC 8.3 D, RBC 4.08, Hgb 11.9 L, Hct 37.5 L, MCV 91.9 D, MCH 29.2, MCHC 31.7, RDW 16.3 H, Plt Count 195, MPV 10.3 I have reviewed the lab results: Yes - RAD Interpretation Radiology Orders: 02/28/17 01:22 HEAD W/O CONTRAST [CT] Stat CHEST PORTABLE [RAD] Stat 02/28/17 01:23 KNEE WITH PATELLA LEFT 3 VIEW [RAD] Stat 02/28/17 02:15 ELBOW RIGHT 3 VIEWS ROUTINE [RAD] Stat Engineering Team Supervisor: ED Physician, Radiologist - EKG Interpretation Interpreted by ED Physician: Yes Type: 12 lead EKG - Medication Orders Current Medication Orders: Discontinued Medications Hydromorphone HCl (Dilaudid) 1 mg IVP STAT STA Stop: 02/28/17 01:56 Last Admin: 02/28/17 02:14 Dose: 1 mg MAR Pain Assessment Document 02/28/17 02:14 SS (Rec: 02/28/17 02:14 SS [id number]) Pain Reassessment Is this a pain reassessment? No Sleep Is patient sleeping during reassessment? No Presence of Pain Presence of Pain Yes Pain Scale Used Pain Scale Used Numeric Location Left, Right or Bilateral Right Pain Location Body Site Elbow Description Description Constant Intensity of Pain at present 10 Pain Behavior Moaning IVP Administration Document 02/28/17 02:14 SS (Rec: 02/28/17 02:14 SS [id number]) Charges for Administration # of IVP Administrations 1 Oxycodone/Acetaminophen (Percocet 5/325 Mg Tab) 1 tab PO STAT STA Stop: 02/28/17 01:25 Last Admin: 02/28/17 01:48 Dose: 1 tab MAR Pain Assessment Document 02/28/17 01:48 SS (Rec: 02/28/17 01:59 SS [id number]) Pain Reassessment Is this a pain reassessment? No Sleep Is patient sleeping during reassessment? No Presence of Pain Presence of Pain Yes Pain Scale Used Pain Scale Used Numeric Location Left, Right or Bilateral Right Pain Location Body Site Elbow Description Description Constant Intensity of Pain at present 10 - Scribe Statement The provider has reviewed the documentation as recorded by the John Lopez Provider Scribe Attestation: All medical record entries made by the Scribe were at my direction and personally dictated by me. I have reviewed the chart and agree that the record accurately reflects my personal performance of the history, physical exam, medical decision making, and the department course for this patient. I have also personally directed, reviewed, and agree with the discharge instructions and disposition. Disposition/Present on Arrival - Present on Arrival Any Indicators Present on Arrival: No History of DVT/PE: No History of Uncontrolled Diabetes: No Urinary Catheter: No History of Decub. Ulcer: No History Surgical Site Infection Following: None - Disposition Have Diagnosis and Disposition been Completed?: Yes Diagnosis: Syncope, Knee sprain, Elbow injury Disposition: HOSPITALIZED Disposition Time: 04:35 Condition: GOOD Discharge Instructions (ExitCare): Syncope (ED)
[2017-02-28] MEDS ORDERED: Oxycodone/Acetaminophen 5/325 mg Tab PO STA (01:24)
[2017-02-28] MEDS ORDERED: HYDROmorphone 1 mg/ml ISec IVP STA (01:55)
[2017-02-28 02:03] LABS: HEMOGLOBIN 11.9 g/dL (14.0-18.0); MEAN CORPUSCULAR HEMOGLOBIN 29.2 pg (25.0-35.0); MEAN CORPUSCULAR HGB CONC 31.7 g/dl (31.0-37.0); MEAN PLATELET VOLUME 10.3 fl (7.0-11.0); RBC 4.08 10^6/uL (3.5-6.1); RED CELL DISTRIBUTION WIDTH 16.3 % (11.5-14.5); WHITE BLOOD COUNT 8.3 10^3/ul (4.5-11.0)
[2017-02-28 02:04] LABS: MEAN CELL VOLUME 91.9 fl (80.0-105.0)
[2017-02-28 03:04] LABS: INR 1.21 (0.93-1.08); PARTIAL THROMBOPLASTIN TIME 30.8 Seconds (25.1-36.5); PROTHROMBIN TIME 13.2 SECONDS (9.4-12.5)
[2017-02-28 03:09] LABS: TROPONIN I 0.1 ng/mL
[2017-02-28 03:24] LABS: ALB/GLOB RATIO 1.2 (1.1-1.8); CALCIUM 9.6 mg/dL (8.4-10.5)
--- NOTE | 2017-02-28 04:03 | CT ---
EXAM: CT Head Without Intravenous Contrast CLINICAL HISTORY: 66 years old, male; Signs and symptoms; Syncope and collapse TECHNIQUE: Axial computed tomography images of the head/brain without intravenous contrast. All CT scans at this facility use one or more dose reduction techniques, viz.: automated exposure control; ma/kV adjustment per patient size (including targeted exams where dose is matched to indication; i.e. head); or iterative reconstruction technique. COMPARISON: No relevant prior studies available. FINDINGS: Brain: Oodm-uv-uvmrrbeb atrophy. No intracranial hemorrhage. No mass. No definite edema. Ventricles: No hydrocephalus. Bones/joints: No acute fracture. Soft tissues: Unremarkable. Vasculature: Mild atherosclerotic disease of intracranial arteries. Sinuses: Complete opacification of RIGHT frontal sinus. Scattered minimal mucosal thickening of ethmoid sinuses. Mastoid air cells: No mastoid effusion. Orbits: Proptosis. IMPRESSION: 1. No definite acute intracranial abnormality. 2. Incidental/non-acute findings are described above.
--- NOTE | 2017-02-28 08:51 | RAD ---
HISTORY: syncope COMPARISON: 12/12/2016. FINDINGS: LUNGS: There is mild pulmonary venous congestion. PLEURA: No significant pleural effusion identified, no pneumothorax apparent. CARDIOVASCULAR: Persistent severe cardiomegaly. OSSEOUS STRUCTURES: No significant abnormalities. VISUALIZED UPPER ABDOMEN: Normal. OTHER FINDINGS: None. IMPRESSION: Persistent severe cardiomegaly. No acute findings.
--- NOTE | 2017-02-28 09:41 | RAD ---
PROCEDURE: Left Knee Radiographs. HISTORY: Pain. COMPARISON: None. FINDINGS: BONES: Bone alignment is normal. There is diffuse bone demineralization. There is no acute displaced fracture or bone destruction. JOINTS: There is severe degenerative osteoarthrosis in the medial compartment with severe reduced joint space and marginal osteophytes. JOINT EFFUSION: There is a small suprapatellar joint effusion. OTHER FINDINGS: None. IMPRESSION: Severe degenerative osteoarthrosis in the medial compartment and small suprapatellar joint effusion.
--- NOTE | 2017-02-28 09:44 | CARD ---
APPROVED REPORT EKG Measurement Heart [id number] <Conclusion> Atrial fibrillation Incomplete left bundle branch block T wave abnormality, consider inferolateral ischemia or digitalis effect Prolonged QT Abnormal ECG
--- NOTE | 2017-02-28 10:35 | RAD ---
PROCEDURE: Radiographs of the right elbow. HISTORY: injury COMPARISON: No prior. FINDINGS: BONES: Normal. No fracture. JOINTS: Normal. No osteoarthritis. SOFT TISSUES: Normal. JOINT EFFUSION: None. OTHER FINDINGS: None. IMPRESSION: Unremarkable radiographs of the right elbow.
[2017-02-28 10:44] LABS: FLUID TYPE SYNOVIAL FLUID
[2017-02-28 11:18] LABS: SF GROSS APPEARANCE BLOODY (CLEAR)
[2017-02-28 11:19] LABS: SYNOVIAL FLUID COMMENT COLOR RED
[2017-02-28] MEDS ORDERED: Aspirin 325 mg EC Tablets PO ONE (13:08)
[2017-02-28] MEDS: Albuterol-Ipratrop 3 mg / 0.5 (3 ml) UD IH SCH ×2 (15:00→22:15)
--- NOTE | 2017-02-28 16:07 | CON ---
DATE: 02/28/2017 ORTHOPEDIC CONSULT REPORT HISTORY OF PRESENT ILLNESS: In the ER, seen by me for symptoms after a fall. He has a swollen right elbow with swollen olecranon bursa and a swollen left knee. X-rays of the elbow show no fracture. X-rays of the left knee shows gtqd-[id number]-hddr osteoarthritis of the medial tibia and femur with effusion. So, main pain was in the left knee, so we aspirated 20 mL of serosanguinous fluid, sent it to the lab for cell count, culture and crystals, and I injected the left knee with Depo-Medrol and Marcaine for pain relief. If this elbow is still swollen tomorrow, after admission, we may have to aspirate that, but I am hoping that resorbs spontaneously with the help of the cortzon injection_. FINAL DIAGNOSIS: Osteoarthritis left knee with effusion in the medial joint line bone on bone associated with olecranon contusion and he also has a right elbow traumatic bursitis. the Depo-Medrol and Marcaine into the left knee may help right elbow bursa effusion also and follow him when he is in the hospital. Ken Myers DO MICKEY
--- NOTE | 2017-02-28 17:07 | CON ---
DATE: 02/28/2017 NEUROLOGY CONSULTATION CHIEF COMPLAINT: Syncope. HISTORY OF PRESENT ILLNESS: This is a 66-year-old man with history of atrial fibrillation, CHF, COPD, sleep apnea, renal disorder on dialysis, who came to the hospital status post syncopal episode. The patient stood up from his bed and sort of felt lightheaded and loss conscious and fell to the ground. No seizure-like activity. He had elevated BUN and creatinine. Blood pressures systolic and diastolic in the lower side, when he came, otherwise following commands and moving all extremities. CAT scan of the head showed no acute intracranial abnormalities. PAST MEDICAL HISTORY: CHF, atrial fibrillation, sleep apnea, and renal disorder on dialysis. ALLERGIES: NO KNOWN DRUG ALLERGIES. MEDICATIONS: Reviewed by nurse per reconciliation sheet. FAMILY HISTORY: Noncontributory. SOCIAL HISTORY: No illicit drug use, smoking, or EtOH abuse. REVIEW OF SYSTEMS: A 14-point review of systems is negative except as per the HPI. PHYSICAL EXAMINATION: GENERAL: The patient is sitting up in bed in no acute distress. VITAL SIGNS: Temperature 98, pulse rate 80, blood pressure 130/76, respiratory rate 16, and oxygen saturation 98% on room air. HEENT: Atraumatic and normocephalic. PERRLA. Extraocular muscles intact. NECK: Supple. No JVD. No adenopathy noted. LUNGS: Clear to auscultation. No adventitious sounds. HEART: S1 and S2. Normal rate and rhythm. No murmurs, rubs, or gallops. ABDOMEN: Soft, nontender and nondistended. Bowel sounds are present. EXTREMITIES: No clubbing. No cyanosis. Peripheral pulses are 2+ felt bilaterally. NEUROLOGIC: The patient is alert and oriented to person, place, month, and year. Speech fluent without errors. Cranial nerves II through XII are intact. Motor exam: Moves all extremities equally. Toes are downgoing bilaterally. Sensory exam: Light touch, pinprick, proprioception, and vibration intact. DTRs are 1+ throughout. Coordination of lfupxd-ie-fcax intact. Gait is guarded. LABORATORY DATA: Sodium is 140, potassium 5.2, chloride of 98, carbon dioxide 21, BUN of 97, creatinine 13, and random glucose of 89. ASSESSMENT: This is a 66-year-old male with past medical history of end stage renal disease on dialysis, sleep apnea, chronic obstructive pulmonary disease, congestive heart failure, and atrial fibrillation, had a syncopal event after getting up from his bed. No seizure-like activity. No history of seizures. CAT scan of the head showed no acute intracranial abnormalities. At this time, syncope seems likely most likely a vasovagal syncope, mostly neurocardiogenic. RECOMMENDATIONS: At this time recommend: 1. Orthostatic vital signs. 2. Carotid Doppler. 3. Avoid systolic drops in blood pressure. 4. Avoid sedative medications. 5. Adequate hydration. 6. Followup with dialysis and Nephrology. 7. Avoid overuse of and opioids and continue current present medical management. Thank you for this consult. Daniel Saez MD
[2017-02-28 17:50] VITALS: BMI 32.4
[2017-02-28] MEDS ORDERED: Influenza Vaccine 60 mcg/0.5 mL SYR (4YR UP) IM ONE (17:50)
[2017-02-28] MEDS ORDERED: Pneumococcal 23-Valent Vaccine IM ONE (17:50)
[2017-02-28] MEDS ORDERED: Oxycodone/Acetaminophen 5/325 mg Tab PO PRN (18:50)
[2017-02-28] MEDS ORDERED: Morphine 2 mg/ml ISec IVP STA (20:18)
[2017-02-28] MEDS: Oxycodone/Acetaminophen 5/325 mg Tab PO PRN (22:39)
--- NOTE | 2017-03-01 01:46 | PN ---
PROCEDURE DATE: 02/28/2017 RENAL DIALYSIS NOTE The patient is in the renal dialysis unit. He is dialyzing via a left AV fistula. Blood pressure is 114/62, pulse is 66. He is afebrile. He denies shortness of breath. He is having blood flow rates of 400 ml, and I am aiming for 3-1/2 to 4 kg off. Laboratory data shows hemoglobin 11.9, hematocrit 37.5, potassium is 5.2. Patient will continue on 2 K bicarb bath Bibiana Choudhury MD MTDD
--- NOTE | 2017-03-01 03:28 | HP ---
CHIEF COMPLAINT: Passing out, falling, pain in the extremities. HISTORY OF PRESENT ILLNESS: Mr. Shayan Tellez is a 66-year-old male with past medical history of atrial fibrillation, congestive heart failure, COPD, sleep apnea, and renal failure on hemodialysis who came to the Emergency room status post syncopal episode. The patient states that after he stood up from bed yesterday evening, he lost consciousness and fell to the ground. The patient states he was unconscious for approximately 2 to 3 minutes. The patient was complaining about right elbow pain and left knee pain. According to the patient, he has had upper respiratory tract infection and was having cough syrup. Denies fever, chills, chest pain, nausea, vomiting, diarrhea, dizziness or swelling of the legs. PAST MEDICAL HISTORY: Atrial fibrillation, congestive heart failure, COPD, sleep apnea, renal failure on hemodialysis, has left arm shunt, gastroesophageal reflux disease, and obesity. FAMILY HISTORY: Father and mother noncontributory. HABITS: Former smoker. No smoking now. Alcohol, yes socially. Substance abuse, no. ALLERGIES: THE PATIENT IS NOT ALLERGIC TO ANY MEDICATIONS. REVIEW OF SYSTEMS: The patient is seen and examined at the bedside, looking comfortable. No nausea or vomiting. No diarrhea. No hematuria or hematochezia. No headache or dizziness. Feeling congested. No shortness of breath. No chest pain. No abdominal pain. No dysuria or urinary changes. Has right elbow pain and left knee pain. No rash. LABORATORY DATA: White blood cells 8.3, hemoglobin 11.9, hematocrit 37.5, and platelets 195. Sodium 140, potassium 5.2, BUN 97, creatinine 13.0, and glucose 89. ASSESSMENT AND PLAN: Mr. Shayan Tellez is a 66-year-old male with anemia, hyperkalemia, and renal insufficiency, on hemodialysis, came in syncopal attack, knee sprain, and elbow injury. Elbow x-ray done shows unremarkable. History of congestive heart failure, atrial fibrillation, sleep apnea, renal failure on hemodialysis, had syncopal attack, and history of upper respiratory tract infection. CAT scan of the head showed no acute intracranial abnormalities, and according to Neurology, syncope looks like vasovagal syncope most likely neurocardiogenic. We will do orthostatic vitals, carotic Doppler. Avoid systolic drop in blood pressure. Avoid sedative medications. Give adequate hydration. Neurology suggested avoid overuse of opioids. The patient loves opioids. The patient has swollen olecranon bursa, has swollen left knee. X-ray shows no fracture. X-rays of the knee shows [id number] osteoarthritis on the medial tibial and femur with effusion. Dr. Myers aspirated 20 mL of serosanguineous fluid from the knee, sent it to the lab for cell count, culture and crystals and injected the left knee with Depo-Medrol and Marcaine for pain relief. If this elbow is still swollen tomorrow after admission, we may have to aspirate it back, but according to Orthopedic, The patient has olecranon contusions. We will continue present treatment. Gastrointestinal and deep venous thrombosis prophylaxis. Repeat labs. We will follow up. Dione Tijerina MD MTDJorge
--- NOTE | 2017-03-01 04:17 | CON ---
DATE: 02/28/2017 LOCATION: The patient is in room 272, bed 1. REASON FOR CONSULTATION: Atrial fibrillation, renal failure, hypertension, COPD, history of CHF, and fall from the bed. HISTORY OF PRESENT ILLNESS: The patient is a 66-year-old male who is a known case of renal failure, now on dialysis three times a week, history of COPD, congestive heart failure, atrial fibrillation, hypertension, and sleep apnea on BiPAP at home, admitted with the history that he was lying in the bed and was sleeping and he fell down from the bed and injured right elbow and left knee, having pain on those two points. Denies chest pain, shortness of breath or palpitation. He says at times on exertion he gets shortness of breath. He was also told to have borderline diabetes mellitus. He sleeps on three pillows. He says that he had cardiac catheterization in [place] and was told there was no blockage. PAST MEDICAL HISTORY: As mentioned above, history of renal failure on dialysis, history of congestive heart failure, atrial fibrillation, COPD, sleep apnea, shunt on the left arm, and BPH. PERSONAL HISTORY: He used to smoke up to 3 packs a day, but stopped 40 years ago. He used to drink heavy and he says he stopped that also 40 years ago, and he also was involved in illicit drugs 40 years ago, but stopped. ALLERGIES: THE PATIENT DENIES ANY ALLERGIES. FAMILY HISTORY: Not significant. REVIEW OF SYSTEMS: All the systems reviewed and positive as mentioned in history, otherwise, negative. MEDICATIONS: According to the patient, he was taking Protonix 40 mg p.o. daily. PHYSICAL EXAMINATION: VITAL SIGNS: Blood pressure 128/76, respirations 16, pulse 80, and temperature 98. HEENT: Head is normocephalic. Eyes: Pupils normal. Conjunctivae slightly pale. NECK: JVP low. Carotids equal. THORAX: AP diameter normal. LUNGS: Clear. CARDIOVASCULAR: S1 and S2. ABDOMEN: Protuberant. No organomegaly. EXTREMITIES: No clubbing. No cyanosis. The patient has right elbow swelling and left knee swelling. LABORATORY DATA: WBC 8.3, hemoglobin 11.9, hematocrit 37.5, and platelets 195. Sodium 140, potassium 5.2, BUN 97, and creatinine 13.0. AST and ALT normal. Troponin 0.10. Total protein 7.3, albumin 4.0, and random glucose 89. Chest x-ray showed cardiomegaly and mild vascular congestion. EKG showed atrial fibrillation, with T inversion in I and aVL. Prothrombin time 13.2, INR 1.21, and PTT 30.8. X-ray of the right elbow was nonsignificant. X-ray of the left knee showed osteoarthritic changes and some suprapatellar fluid accumulation. DIAGNOSES: Atrial fibrillation, mild congestive heart failure, probably related to fluid overload and left ventricular systolic dysfunction, history of renal failure on dialysis, hypertension, chronic obstructive pulmonary disease, sleep apnea on BiPAP, benign prostatic hypertrophy, and anemia. PLAN: Continue dialysis. Analgesics for pain. The patient's heart rate is under control. The patient had atrial fibrillation, but not on any anticoagulation. We will start Eliquis 2.5 mg b.i.d. I will discuss with Dr. Tijerina. Also, we will add Protonix 40 mg daily. We will follow with you. Kathryn Bennett MD
[2017-03-01] MEDS: Albuterol-Ipratrop 3 mg / 0.5 (3 ml) UD IH SCH ×3 (04:30→14:03)
[2017-03-01 06:24] VITALS: O2SAT 97
[2017-03-01 07:17] LABS: CALCIUM 9.2 mg/dL (8.4-10.5)
--- NOTE | 2017-03-01 08:37 | PN ---
DATE: 02/28/2017 HEMODIALYSIS PROGRESS NOTE This 66-year-old male is dialyzing in the [facility] Renal Dialysis Unit. He is on a F 160, 140 sodium, 2K bicarb bath. PHYSICAL EXAMINATIION: VITAL SIGNS: BP is 126/75, pulse is 88, blood flow rate 400 ml a minute. He is dialyzing via left AV fistula. HEART: Irregular S1, S2. LUNGS: Clear. EXTREMITIES: No edema. We will aim for 3.5 kg fluid removal as tolerated. The above was reviewed with nurse, Alexa Betancourt, dialysis registered nurse. Bibiana Choudhury MD MTDD
--- NOTE | 2017-03-01 08:37 | CON ---
DATE: 02/28/2017 HISTORY OF PRESENT ILLNESS: This 66-year-old male was evaluated after presenting to the [facility] ER. He was at his apartment and complained of having a syncopal episode. He states he felt lightheaded and dizzy upon arising from his bed last evening. He fell to the ground and was reportedly unconscious for several minutes. Upon presenting to the [facility] ER, he complained of right elbow pain, left knee pain, and had an evaluation by Dr. Ken Myers in the ER where he performed left knee arthrocentesis and the injection of Marcaine and cortisone. The right elbow was x-rayed and reviewed. X-rays were reviewed. There was no evidence of obvious knee or elbow fracture, and the patient is being admitted for further evaluation of syncope. On questioning the patient, he has a 4-year history of chronic renal failure, on hemodialysis and has been attending hemodialysis at the [facility] for the past 1 month. The patient states he has a history of atherosclerotic heart disease, morbid obesity, chronic obstructive pulmonary disease, sleep apnea as well as chronic atrial fibrillation, and congestive heart failure. ALLERGIES: THE PATIENT DENIED ANY ALLERGIES TO MEDICATIONS. SOCIAL HISTORY: He states he is a former smoker, social drinker. Denies IV drug misuse. FAMILY HISTORY: Noncontributory. REVIEW OF SYSTEMS: CONSTITUTIONAL REVIEW: No fever, no chills. EYE REVIEW: No change in visual acuity. EARS: No hearing loss. THROAT REVIEW: No swallowing difficulty. NECK REVIEW: No stiffness. CARDIOVASCULAR: As per HPI. PULMONARY: No cough. No hemoptysis. GASTROINTESTINAL: No vomiting, no diarrhea. GENITOURINARY: End-stage renal disease, hemodialysis dependent. MUSCULOSKELETAL: Degenerative arthritis, right elbow and left knee pain. SKIN: No rash. VASCULAR: No claudication. PSYCHOLOGIC: Denied depression. NEUROLOGIC: Denied knowledge of stroke or seizure. PHYSICAL EXAMINATION: VITAL SIGNS: Temperature 97.8, respirations 16, pulse 76, blood pressure 131/65, and pulse ox 98% room air. HEENT: Head normocephalic, atraumatic. Eyes: No icterus. Ears clear. Throat: Noninjected. NECK: Supple. HEART: Irregular. S1 and S2. LUNGS: Clear. ABDOMEN: Obese. EXTREMITIES: No edema. SKIN: Without rash. NEUROLOGIC: Intact. PSYCHOLOGIC: Alert. VASCULAR: Legs are warm to touch. LABORATORY DATA: White count 8300, hemoglobin 11.9, hematocrit 37, PT/INR 1.21, PTT 30.8. Sodium 140, K 5.2, chloride 98, bicarb 21, BUN 97, creatinine 13.0, and random blood sugar 89. All liver function testing normal including bilirubin of 0.5, AST of 24, ALT of 33, and alk phos of 67. Chest x-ray was reviewed, which showed mild pulmonary vascular congestion and cardiomegaly, no obvious infiltrates. EKG - showed atrial fibrillation with nonspecific ST-T wave changes. Head CT showed no obvious intracranial hemorrhage or stroke. Left knee x-ray showed no obvious fracture, but severe degenerative arthritis. Right elbow showed no obvious fracture. IMPRESSION: A 66-year-old obese male status post syncopal episode with history of atherosclerotic heart disease, chronic atrial fibrillation, end-stage renal disease hemodialysis dependent, and anemia of chronic disease. PLAN: The plan will be to admit this patient. He will have Cardiology, Orthopedic, and Neurological evaluations. As discussed with nurse, Alexa Linton, the patient will be readied for hemodialysis and dialysis orders have been outlined. Thank you. Bibiana Choudhury MD [facility]
[2017-03-01] MEDS ORDERED: Lidocaine 5% Patch TOP SCH (10:00)
[2017-03-01] MEDS: Oxycodone/Acetaminophen 5/325 mg Tab PO PRN (11:15)
[2017-03-01] MEDS ORDERED: HYDROmorphone 0.5 mg/0.5 ml ISec IVP PRN ×2 (11:38→15:54)
[2017-03-01 12:13] VITALS: PULSE 72
--- NOTE | 2017-03-01 12:36 | CP.PCM.DIS ---
<Altagracia Amaro - Last Filed: 03/01/17 21:44> Provider - Provider Date of Admission: 02/28/17 04:24 Attending physician: Dione Tijerina MD Consults: Neuro - Dr. Saez Surgery - aco Cardio - Dr. Greenef Pulmonary - Dr. Soria Time Spent in preparation of Discharge (in minutes): 35 Hospital Course - Lab Results Lab Results: Micro Results 02/28/17 10:30 Synovial Fluid Gram Stain - Final 02/28/17 10:30 Synovial Fluid Body Fluid Culture - Preliminary NO GROWTH AFTER 24 HOURS Most Recent Lab Values WBC 8.3 10^3/ul (4.5-11.0) D 02/28/17 01:30 RBC 4.08 10^6/uL (3.5-6.1) 02/28/17 01:30 Hgb 11.9 g/dL (14.0-18.0) L 02/28/17 01:30 Hct 37.5 % (42.0-52.0) L 02/28/17 01:30 MCV 91.9 fl (80.0-105.0) D 02/28/17 01:30 MCH 29.2 pg (25.0-35.0) 02/28/17 01:30 MCHC 31.7 g/dl (31.0-37.0) 02/28/17 01:30 RDW 16.3 % (11.5-14.5) H 02/28/17 01:30 Plt Count 195 10^3/uL (120.0-450.0) 02/28/17 01:30 MPV 10.3 fl (7.0-11.0) 02/28/17 01:30 PT 13.2 SECONDS (9.4-12.5) H 02/28/17 02:35 INR 1.21 (0.93-1.08) H 02/28/17 02:35 APTT 30.8 Seconds (25.1-36.5) 02/28/17 02:35 Sodium 139 mmol/L (132-148) 03/01/17 06:00 Potassium 6.1 mmol/L (3.6-5.0) H* 03/01/17 06:00 Chloride 94 mmol/L (98-107) L 03/01/17 06:00 Carbon Dioxide 26 mmol/L (21-33) 03/01/17 06:00 Anion Gap 25 (10-20) H 03/01/17 06:00 BUN 59 mg/dL (7-21) H 03/01/17 06:00 Creatinine 9.2 mg/dl (0.8-1.5) H* D 03/01/17 06:00 Est GFR ( Amer) 7 03/01/17 06:00 Est GFR (Non-Af Amer) 6 03/01/17 06:00 Random Glucose 115 mg/dL (70-110) H 03/01/17 06:00 Hemoglobin A1c 6.1 % (4.2-6.5) 03/01/17 06:00 Calcium 9.2 mg/dL (8.4-10.5) 03/01/17 06:00 Total Bilirubin 0.5 mg/dL (0.2-1.3) 02/28/17 02:35 AST 24 U/L (17-59) 02/28/17 02:35 ALT 33 U/L (7-56) 02/28/17 02:35 Alkaline Phosphatase 67 U/L (38-126) 02/28/17 02:35 Lactate Dehydrogenase 372 U/L (333-699) 02/28/17 02:35 Total Creatine Kinase 75 U/L (35-230) 02/28/17 02:35 Troponin I 0.10 ng/mL 02/28/17 02:35 Total Protein 7.3 g/dL (5.8-8.3) 02/28/17 02:35 Albumin 4.0 g/dL (3.0-4.8) 02/28/17 02:35 Globulin 3.4 gm/dL 02/28/17 02:35 Albumin/Globulin Ratio 1.2 (1.1-1.8) 02/28/17 02:35 TSH 3rd Generation 0.09 mIU/mL (0.46-4.68) L 03/01/17 06:00 Fluid Type Synovial fluid 02/28/17 10:30 Synovial WBC 336.0 /uL (0.0-150.0) H 02/28/17 10:30 Synovial RBC 096271.0 /uL (0.0-0.0) H 02/28/17 10:30 Synovial Neutrophils 61.6 % (0-0) H 02/28/17 10:30 Synovial Lymphocytes 38.4 % (0-0) H 02/28/17 10:30 Synov Monos/Macrophage TEST NOT PERFORMED 02/28/17 10:30 Synovial Fluid Comment Color red 02/28/17 10:30 - Hospital Course Hospital Course: 66yr male w/ history of Afib, CHF, COPD, sleep apnea, ESRD (T- Th- hemodialysis) who had syncopal epidsode with, loss of consciousnes, fall and injury to R elbow & L knee. 02/28/17 aspirated fluid from L knee. Pt condition stable. Reviewed: US carotid = Xray elbow = WNL Xray L Knee = sever degenertaion ostearthritis in the medial compartment & small suprapatellar joint effusion CT head = complete opacification of R frontal sinuses, no acute intracranial abnormality CXR = mild pulmonay venous congestion, persistent severe cardiomegaly Pathology Synovial Fluid = suggestive of calcium pyrophosphate, negative uric acid ECHO = EF 60-65%, severe pulmonary hypertension ECG = ABNORMAL, afib, incomplete L BBB, T wave abnormal, consider inferolateral ischemia or digitalis effect, prolonged QT - Date & Time of H&P Date of H&P: 03/01/17 Time of H&P: 11:40 Discharge Exam - Head Exam Head Exam: ATRAUMATIC, NORMAL INSPECTION, NORMOCEPHALIC - Eye Exam Eye Exam: EOMI, Normal appearance, PERRL - ENT Exam ENT Exam: Mucous Membranes Moist - Neck Exam Neck exam: Full Rom - Respiratory Exam Respiratory Exam: Decreased Breath Sounds, NORMAL BREATHING PATTERN, UNREMARKABLE - Cardiovascular Exam Cardiovascular Exam: Irregular Rhythm - GI/Abdominal Exam GI & Abdominal Exam: Normal Bowel Sounds, Soft - Extremities Exam Additional comments: L lower arm AV fistula (+)bruit (+)thrill - Back Exam Back exam: FULL ROM, NORMAL INSPECTION - Neurological Exam Neurological exam: Alert, CN II-XII Intact, Normal Gait, Oriented x3, Reflexes Normal - Psychiatric Exam Psychiatric exam: Normal Affect, Normal Mood - Skin Skin Exam: Dry Discharge Plan - Discharge Medications Prescriptions: Apixaban [Eliquis] 2.5 mg PO BID #60 tab oxyCODONE/Acetaminophen [Percocet 5/325 mg Tab] 1 ea PO Q8H PRN #15 tab PRN Reason: Pain, Moderate (4-7) - Follow Up Plan Condition: GOOD Disposition: HOME/ ROUTINE Instructions: Syncope (DC), Syncope (GEN), Acute Hematuria (DC), Acute Hematuria (GEN) Additional Instructions: DISCHARGE TO HOME TODAY. FOLLOW UP WITH DR. TIJERINA IN 1 WEEK CALL TO MAKE AN APPOINTMENT. ([phone]) FOLLOW UP WITH OUT PATIENT STRESS TEST IN ONE WEEK. 03/08/17. FOLLOW UP WITH DR. MENCHACA AFTER STRESS TEST IS COMPLETED, CALL TO MAKE AN APPOINTMENT. ([phone]) FOLLOW UP WITH DR. BALLESTEROS CALL TO MAKE AN APPOINTMENT.( [phone]) IF EXPERIENCING CHEST PAIN OR SHORTNESS OF BREATH CALL 911. CONTINUE HOME MEDICATIONS. <Dione Tijerina - Last Filed: 03/01/17 22:43> Provider - Provider Date of Admission: 02/28/17 04:24 Attending physician: Dione Tijerina MD Hospital Course - Lab Results Lab Results: Micro Results 02/28/17 10:30 Synovial Fluid Gram Stain - Final 02/28/17 10:30 Synovial Fluid Body Fluid Culture - Preliminary NO GROWTH AFTER 24 HOURS Most Recent Lab Values WBC 8.3 10^3/ul (4.5-11.0) D 02/28/17 01:30 RBC 4.08 10^6/uL (3.5-6.1) 02/28/17 01:30 Hgb 11.9 g/dL (14.0-18.0) L 02/28/17 01:30 Hct 37.5 % (42.0-52.0) L 02/28/17 01:30 MCV 91.9 fl (80.0-105.0) D 02/28/17 01:30 MCH 29.2 pg (25.0-35.0) 02/28/17 01:30 MCHC 31.7 g/dl (31.0-37.0) 02/28/17 01:30 RDW 16.3 % (11.5-14.5) H 02/28/17 01:30 Plt Count 195 10^3/uL (120.0-450.0) 02/28/17 01:30 MPV 10.3 fl (7.0-11.0) 02/28/17 01:30 PT 13.2 SECONDS (9.4-12.5) H 02/28/17 02:35 INR 1.21 (0.93-1.08) H 02/28/17 02:35 APTT 30.8 Seconds (25.1-36.5) 02/28/17 02:35 Sodium 139 mmol/L (132-148) 03/01/17 06:00 Potassium 6.1 mmol/L (3.6-5.0) H* 03/01/17 06:00 Chloride 94 mmol/L (98-107) L 03/01/17 06:00 Carbon Dioxide 26 mmol/L (21-33) 03/01/17 06:00 Anion Gap 25 (10-20) H 03/01/17 06:00 BUN 59 mg/dL (7-21) H 03/01/17 06:00 Creatinine 9.2 mg/dl (0.8-1.5) H* D 03/01/17 06:00 Est GFR ( Amer) 7 03/01/17 06:00 Est GFR (Non-Af Amer) 6 03/01/17 06:00 Random Glucose 115 mg/dL (70-110) H 03/01/17 06:00 Hemoglobin A1c 6.1 % (4.2-6.5) 03/01/17 06:00 Calcium 9.2 mg/dL (8.4-10.5) 03/01/17 06:00 Total Bilirubin 0.5 mg/dL (0.2-1.3) 02/28/17 02:35 AST 24 U/L (17-59) 02/28/17 02:35 ALT 33 U/L (7-56) 02/28/17 02:35 Alkaline Phosphatase 67 U/L (38-126) 02/28/17 02:35 Lactate Dehydrogenase 372 U/L (333-699) 02/28/17 02:35 Total Creatine Kinase 75 U/L (35-230) 02/28/17 02:35 Troponin I 0.10 ng/mL 02/28/17 02:35 Total Protein 7.3 g/dL (5.8-8.3) 02/28/17 02:35 Albumin 4.0 g/dL (3.0-4.8) 02/28/17 02:35 Globulin 3.4 gm/dL 02/28/17 02:35 Albumin/Globulin Ratio 1.2 (1.1-1.8) 02/28/17 02:35 TSH 3rd Generation 0.09 mIU/mL (0.46-4.68) L 03/01/17 06:00 Fluid Type Synovial fluid 02/28/17 10:30 Synovial WBC 336.0 /uL (0.0-150.0) H 02/28/17 10:30 Synovial RBC 658856.0 /uL (0.0-0.0) H 02/28/17 10:30 Synovial Neutrophils 61.6 % (0-0) H 02/28/17 10:30 Synovial Lymphocytes 38.4 % (0-0) H 02/28/17 10:30 Synov Monos/Macrophage TEST NOT PERFORMED 02/28/17 10:30 Synovial Fluid Comment Color red 02/28/17 10:30 - Hospital Course Hospital Course: pt is seen and examined at bed side . looking comfortable , getting dialysis , s /p fall . seen by ortho . knee aspiration done . agreed all above , chart , labs .meds noted agreed with all treatment , will f/u as out pt . meds pres. given to the pt by sindy Cole . d/d with SINDY
--- NOTE | 2017-03-01 13:01 | PN ---
DATE: 03/01/2017 REASON FOR CONSULTATION: Followup atrial fibrillation, chronic CKD, admitted after fall, rule out syncope, cardiac evaluation. SUBJECTIVE: The patient denies any chest pain, shortness of breath, or any palpitation. OBJECTIVE: GENERAL: Not in apparent distress. Lying at 45 degrees head up. VITAL SIGNS: Temperature afebrile, heart rate 68, orthostatic blood pressure 136/54, sitting 131/65, standing 124/70. HEENT: PERRLA. Extraocular muscles intact. NECK: Supple. No carotid bruits or thyromegaly. CHEST: Clear to auscultation. HEART: S1 and S2, regular. ABDOMEN: Soft. EXTREMITIES: Clubbing and cyanosis negative. LABORATORY DATA: Blood work up as follows; WBC 8.3, hemoglobin 11.9, hematocrit 37.5, and platelet count 195. Chemistry shows sodium 130, potassium 3.1, chloride 94, carbon dioxide 24, anion gap of 25, BUN 15, and creatinine 9.2. IMPRESSION: A 66-year-old morbidly obese male with past medical history of end-stage renal disease, on dialysis; history of chronic atrial fibrillation since last EKG available in the system in 11/2016; chronic obstructive pulmonary disease; sleep apnea; morbid obesity; with cough and took some cough medication and he fell asleep and then he fell down. Admitted here to rule out syncope. So far, no evidence of orthostatic hypotension. No evidence of arrhythmia. History of end-stage renal disease, on dialysis; history of chronic obstructive pulmonary disease; hypertension; bilevel positive airway pressure; history of benign prostatic hypertrophy and anemia. RECOMMENDATIONS: Continue Eliquis, started because of AFib. Telemetry shows AFib with underlying with controlled rate. No evidence of orthostatic hypotension. Recommended followup echo. Continue Eliquis. Continue dialysis. We will get echo to assess LV function for risk stratification. Consider a stress test, is not done recently. We will discuss with you. Thank you Dr. Tijerina, for providing us the opportunity in taking care of the patient, Shayan Tellez. We will discontinue telemetry. Kathryn Corona MD [facility] # [id number]
[2017-03-01 17:38] VITALS: BP 134/69; RESP 20; TEMP 98
--- NOTE | 2017-03-01 18:52 | CARD ---
APPROVED REPORT EXAM: Two-dimensional and M-mode echocardiogram with Doppler and color Doppler. INDICATION Congestive Heart Failure LVFX 2D DIMENSIONS Left Atrium (2D)5.8 (1.6-4.0cm)IVSd1.3 (0.7-1.1cm) LVDd6.3 (3.9-5.9cm)PWd1.6 (0.7-1.1cm) LVDs4.2 (2.5-4.0cm)FS (%) 33.9 % LVEF (%)61.7 (>50%) M-Mode DIMENSIONS Aortic Root4.40 (2.2-3.7cm)Aortic Cusp Exc.2.20 (1.5-2.0cm) Aortic Valve AoV Peak Btovmfll003.0cm/sAoV VTI45.6cmAO Peak GR.24mmHg LVOT Peak Egzfbzty622.0cm/sLVOT VTI34.70cmAO Mean GR.11mmHg AI P 1/2 [id number] Mitral Valve E/A ratio0.0 TDI E/Lateral E'0.0E/Medial E'0.0 Pulmonary Valve PV Peak Nteumolt063.0cm/sPV Peak Grad.4mmHg Tricuspid Valve TR Peak Syoxdpyo265kb/sRAP [id number] Peak Gr.102mmHg [id number] LEFT VENTRICLE The Left Ventricle is mildly dilated. There is mild to moderate concentric left ventricular hypertrophy. The left ventricular function is normal.EF-60-65% There is normal LV segmental wall motion. A fib No left ventricle thrombus noted on this study. There is no ventricular septal defect visualized. There is no left ventricular aneurysm. There is no mass noted in the left ventricle. RIGHT VENTRICLE The right ventricle is moderately dilated. The right ventricle is mildly hypertrophied. Systolic function of RV is moderately reduced. ATRIA The left atrium is moderately dilated. The right atrium is moderately dilated. The interatrial septum is intact with no evidence for an atrial septal defect. AORTIC VALVE The aortic valve is calcified but opens well. The aortic valve is severely sclerotic. There is severe aortic regurgitation. There is no aortic valvular stenosis. There is no aortic valvular vegetation. MITRAL VALVE The mitral valve is thickened but opens well. Mitral regurgitation is moderate to severe. There is no mitral valve stenosis. There is no evidence of mitral valve prolapse. TRICUSPID VALVE The tricuspid valve leaflets are thickened , but open well. There is moderate to severe tricuspid regurgitation.RVSP-112 mmofmHg There is severe pulmonary hypertension. There is no tricuspid valve stenosis. There is no tricuspid valve prolapse or vegetation. PULMONIC VALVE The pulmonic valve is mildly thickened. There is trace pulmonic valvular regurgitation. There is no pulmonic valvular stenosis. GREAT VESSELS The aortic root is normal in size. The ascending aorta is normal in size. The pulmonary artery is normal. The IVC is normal in size and collapses >50% with inspiration. PERICARDIAL EFFUSION There is no pleural effusion. There is no pericardial effusion. <Conclusion> The Left Ventricle is mildly dilated. The left ventricular function is normal.EF-60-65% The right ventricle is moderately dilated. Systolic function of RV is moderately reduced. There is severe aortic regurgitation. Mitral regurgitation is moderate to severe. There is moderate to severe tricuspid regurgitation.RVSP-112 mmofmHg There is severe pulmonary hypertension. The IVC is normal in size and collapses >50% with inspiration. There is no pericardial effusion. Bi atrial enlargement A Fib aty the time of study.
--- NOTE | 2017-03-02 02:44 | CON ---
DATE: 03/01/2017 PULMONARY CONSULTATION REASON FOR CONSULT: Chronic obstructive lung disease, sleep apnea syndrome. HISTORY OF PRESENT ILLNESS: This is a 66-year-old gentleman with past medical history significant for chronic obstructive lung disease; sleep apnea syndrome; renal failure, dialysis dependent; history of congestive heart failure; atrial fibrillation; hypertension; last few days, had some cough and rhinitis, took a lot of decongestant cough medication [id number], had been sleeping, fell, bruised his extremity, came into emergency room, was kept in the hospital, today having ultrasound of the abdomen. Rhinitis and cough is better. No nausea, no vomiting and no diarrhea. PAST MEDICAL HISTORY: As per history present illness. ALLERGIES: NONE KNOWN. SOCIAL HISTORY: Stopped smoking many years ago. Denies any alcohol use presently. FAMILY HISTORY: No significant cardiopulmonary disease reported. MEDICATIONS: He is on Dilaudid 0.5 mg q. 4 hours p.r.n., DuoNeb q.6 hours, Eliquis 2.5 mg daily, Lidoderm patch to affected area, Pepcid 40 mg daily, Percocet 5/325 one tablet q.8 hours p.r.n. REVIEW OF SYSTEMS: No headache. Has some rhinitis. Mild cough. No nausea, no vomiting. No diarrhea. No leg pain or leg swelling. PHYSICAL EXAMINATION: GENERAL: Lying in the bed, no acute distress. VITAL SIGNS: Temperature 98, heart rate 72, respiratory rate is 18, blood pressure 134/69, pulse ox 97% on room air. HEENT: Moist mucous membrane. Crowded airway. NECK: Supple. No JVD. LUNGS: Have fair airflow with rhonchi. HEART: S1 and S2. ABDOMEN: Soft, nontender, no organomegaly. EXTREMITIES: Trace edema. NEUROLOGIC: Awake, alert and follows simple commands. LABORATORY DATA: Shows hemoglobin 11.9, hematocrit 37.5, WBC 8.3, platelet count is 195. INR 1.21, PTT 31. Sodium 139, potassium 6.1, chloride 94, bicarbonate 26, BUN 59, creatinine 9.2, glucose is 115, calcium is 9.2. TSH 0.09. Microbiology: He had a joint tap done, which fluid cultures are negative. Had echocardiogram done, which shows left ventricle mildly dilated, left ventricle ejection fraction is 60 to 65, systolic function of RV is moderately reduced, [id number] tricuspid regurgitation. IMPRESSION AND PLAN: Chronic obstructive lung disease; renal failure, dialysis dependent; atrial fibrillation; sleep apnea syndrome; has upper respiratory infection symptoms; questionable syncopal episode versus drug effect. Patient was seen by orthopedic for his joint swelling. Pulmonary point of view, doing okay. The patient will be discharged home. We will recommend CPAP/BiPAP. He may need repeat study as outpatient, also need PFT. Patient has severe pulmonary hypertension, needs further workup. We will try to do it as an outpatient. Thank you and we will follow with you. Kathryn Soria MD
--- NOTE | 2017-03-02 18:38 | US ---
PROCEDURE: Bilateral carotid artery duplex ultrasound HISTORY: Carotid stenosis syncope PHYSICIAN(S): James Robles MD. TECHNIQUE: Duplex sonography and color-flow Doppler were used to evaluate the carotid bifurcations and limited segments of the vertebral arteries bilaterally. FINDINGS: There is mild smooth hypoechoic plaque noted at the carotid bifurcations bilaterally. The peak systolic velocity in the proximal right internal carotid artery is 52 cm/sec. This corresponds to a 20 to 39% proximal right ICA stenosis. Normal systolic velocities are noted in the proximal right external carotid artery. There is antegrade flow in the right vertebral artery. The peak systolic velocity in the proximal left internal carotid artery is 80 cm/sec. This corresponds to a 20 to 39% proximal left ICA stenosis. Normal systolic velocities are noted in the proximal left external carotid artery. There is antegrade flow in the left vertebral artery. IMPRESSION: 1. Bilateral 20-39% proximal ICA stenoses. 2. Antegrade flow in both vertebral arteries.
== END 2017-03-01 20:19 | disposition home or self-care (01) ==
LOC: ED 00:43 → ERH 04:24 → 2RSO 18:45
PROVIDERS: ADMIT Internal Medicine; ATTEND Internal Medicine
DX: R55 Syncope and collapse (principal); I13.2 Hypertensive heart and chronic kidney disease with heart failure and with stage 5 chronic kidney disease, or end stage renal disease; N18.6 End stage renal disease; Z99.2 Dependence on renal dialysis; I25.10 Atherosclerotic heart disease of native coronary artery without angina pectoris; I50.9 Heart failure, unspecified; J44.9 Chronic obstructive pulmonary disease, unspecified; I48.2 Chronic atrial fibrillation; K21.9 Gastro-esophageal reflux disease without esophagitis; E87.5 Hyperkalemia; G47.30 Sleep apnea, unspecified; M17.12 Unilateral primary osteoarthritis, left knee; S80.02XA Contusion of left knee, initial encounter; M70.31 Other bursitis of elbow, right elbow; E66.01 Morbid (severe) obesity due to excess calories; N40.0 Benign prostatic hyperplasia without lower urinary tract symptoms; I27.20 Pulmonary hypertension, unspecified; D63.8 Anemia in other chronic diseases classified elsewhere; J31.0 Chronic rhinitis; W06.XXXA Fall from bed, initial encounter; Y92.9 Unspecified place or not applicable; Z87.891 Personal history of nicotine dependence
CPT/HCPCS: 20610; 36415; 70450; 71045; 73080; 73562; 80048; 80053; 82550; 83036; 83615; 84443; 84484; 85027; 85610; 85730; 87070; 89051; 89060; 93005; 93306; 93880; 94640; 96374; 96375; 96376; 99285; G0257; G0378; J1170; J2270

== ENCOUNTER 2017-03-02 09:23 | Emergency (ER) | payer MEDICARE, BC ==
[2017-03-02 09:24] VITALS: BMI 32.4
[2017-03-02 09:46] VITALS: RESP 22
[2017-03-02] MEDS ORDERED: HYDROmorphone 1 mg/ml ISec IVP STA (09:52)
--- NOTE | 2017-03-02 09:56 | ED PDOC ---
Arrival/HPI - General Chief Complaint: Upper Extremity Problem/Injury Time Seen by Provider: 03/02/17 09:25 Historian: Patient - History of Present Illness Narrative History of Present Illness (Text): 03/02/17 09:53 This 66 yo male presents to this ED c/o right elbow pain x 2 days. Patient stated he fell on the ground causing his right elbow pain. He was hospitalized for observation, and sent home yesterday. I reviewed elbow x-rays which was no fracture as per radiologist. Patient has been taking Endocet for pain with mild relief of pain. Patient denies other somatic complains. Denies new injuries. Time/Duration: Other (see hpi) Context: Home Past Medical History - Provider Review Nursing Documentation Reviewed: Yes - Past History Past History: Non-Contributing - Infectious Disease Hx of Infectious Diseases: None - Tetanus Immunization Tetanus Immunization: Unknown - Cardiac Hx Cardiac Disorders: Yes Hx Cardiac Arrhythmia: Yes (afib) Hx Congestive Heart Failure: Yes - Pulmonary Hx Respiratory Disorders: Yes Hx Chronic Obstructive Pulmonary Disease (COPD): Yes Hx Sleep Apnea: Yes - Neurological Hx Neurological Disorder: No - HEENT Hx HEENT Disorder: No - Renal Hx Renal Disorder: Yes (cystoscopy) Hx Dialysis: Yes ([facility] left arm shunt) Date of Last Dialysis Treatment: 02/28/17 - Endocrine/Metabolic Hx Endocrine Disorders: No - Hematological/Oncological Hx Blood Disorders: No - Integumentary Hx Dermatological Disorder: Yes (bilateral le edema +2,dusky,dry skin. non pitting.left forearm shunt) - Musculoskeletal/Rheumatological Hx Musculoskeletal Disorders: No Hx Falls: No - Gastrointestinal Hx Gastrointestinal Disorders: Yes Hx Gastroesophageal Reflux: Yes - Genitourinary/Gynecological Hx Genitourinary Disorders: No - Psychiatric Hx Psychophysiologic Disorder: No Hx Substance Use: No - Surgical History Other/Comment: cystoscopy. L arm shunt for dialysis - Anesthesia Hx Anesthesia: Yes Hx Anesthesia Reactions: No Hx Malignant Hyperthermia: No Family/Social History - Physician Review Nursing Documentation Reviewed: Yes Family/Social History: Other (noncontributory) Smoking Status: Former Smoker Hx Alcohol Use: No (former drinker) Hx Substance Use: No Allergies/Home Meds Allergies/Adverse Reactions: Allergies No Known Allergies Allergy (Verified 02/28/17 11:43) Home Medications: Home Meds Medication Instructions Recorded Confirmed Pantoprazole [Protonix EC Tab] 40 mg PO DAILY 02/28/17 02/28/17 Review of Systems - Review of Systems Constitutional: Normal. absent: Fatigue, Weight Change, Fevers Eyes: Normal ENT: Normal Respiratory: Normal. absent: SOB, Cough Cardiovascular: Normal Gastrointestinal: Normal Genitourinary Male: Normal Musculoskeletal: Other (right elbow pain) Skin: Normal Neurological: Normal Endocrine: Normal Hemo/Lymphatic: Normal Psychiatric: Normal Physical Exam Vital Signs Pulse Resp BP Pulse Ox 03/02/17 09:42 87 22 159/68 H 94 L Temperature: Afebrile Blood Pressure: Normal Pulse: Regular Respiratory Rate: Normal Appearance: Positive for: Well-Appearing, Non-Toxic, Comfortable Pain Distress: None Mental Status: Positive for: Alert and Oriented X 3 - Systems Exam Head: Present: Atraumatic, Normocephalic Pupils: Present: PERRL Extroacular Muscles: Present: EOMI Mouth: Present: Moist Mucous Membranes Nose (External): Present: Atraumatic Neck: Present: Normal Range of Motion, Trachea Midline. No: Meningeal Signs, MIDLINE TENDERNESS, Paraspinal Tenderness Respiratory/Chest: Present: Clear to Auscultation, Good Air Exchange Cardiovascular: Present: Regular Rate and Rhythm, Normal S1, S2. No: Murmurs Abdomen: No: Tenderness Upper Extremity: Present: NORMAL PULSES, Neurovascularly Intact, Capillary Refill < 2s, Other ((+) right elboiw is mild swollen, and tender on palpation. ROM decreased on right elbow due to pain. No deformity, cellulitis, ecchymosis , erythema, abscess, or warmth). No: Cyanosis, Edema, Deformity Lower Extremity: Present: Normal Inspection, NORMAL PULSES, Normal ROM, Neurovascularly Intact, Capillary Refill < 2 s. No: Edema, CALF TENDERNESS Neurological: Present: GCS=15, CN II-XII Intact, Speech Normal, Motor Func Grossly Intact, Normal Sensory Function, Normal Cerebellar Funct, Gait Normal Skin: Present: Warm, Dry, Normal Color. No: Rashes Psychiatric: Present: Alert, Oriented x 3, Normal Insight Medical Decision Making ED Course and Treatment: 03/02/17 09:58 Re-evaluation. Patient feels better. Discussed results and plan with patient who expresses understanding. All questions answered and there is agreement with the plan to discharge home with instructions. Patient stable for discharge. Return if symptoms persist or worsen. Patient was recommended to f/u Dr. Fernando orthopedist for revaluation. Recommended RICE. Continue with Endocet for pain as instructed by doctor. Return to emergency if symptoms worsen. Patient requested Dilaudid for his pain. I recommended to return to the ED if right elbow swelling worsen or persist in 2 -3 days to get an ultrasound of right UE to r/o DVT. Patient understood recommendation. Re-evaluation Time: 10:01 Reassessment Condition: Re-examined, Improved - Medication Orders Current Medication Orders: Discontinued Medications Hydromorphone HCl (Dilaudid) 1 mg IVP STAT STA Stop: 03/02/17 09:53 Disposition/Present on Arrival - Present on Arrival Any Indicators Present on Arrival: No History of DVT/PE: No History of Uncontrolled Diabetes: No Urinary Catheter: No History of Decub. Ulcer: No History Surgical Site Infection Following: None - Disposition Have Diagnosis and Disposition been Completed?: Yes Diagnosis: Elbow pain, right Disposition: HOME/ ROUTINE Disposition Time: 10:01 Patient Plan: Discharge Patient Problems: Current Active Problems Problem Status Onset Elbow pain, right Acute Condition: IMPROVED Discharge Instructions (ExitCare): RICE Therapy (ED) Additional Instructions: Call Dr. Fernando for your elbow pain. Keep elbow elevated, ice, rest, for at least 5 days. Return to emergency if symptoms worsen. [facility]errals[facility], [Non-Staff] - Follow up with primary Shazia Fernando MD [Staff Provider] - Follow up with primary Forms: [employer] (Dominican)
[2017-03-02] MEDS ORDERED: HYDROmorphone 0.5 mg/0.5 ml ISec ONE (10:03)
[2017-03-02 11:33] VITALS: BP 142/89; PULSE 85; O2SAT 98
== END 2017-03-02 10:45 | disposition home or self-care (01) ==
LOC: ED 09:23
DX: M25.521 Pain in right elbow (principal)
CPT/HCPCS: 96374; 99285; J1170

== ENCOUNTER 2017-03-03 13:41 | Emergency (ER) | payer MEDICARE, BC ==
[2017-03-03 13:43] VITALS: BMI 33.0
--- NOTE | 2017-03-03 14:16 | ED PDOC ---
Arrival/HPI - General Chief Complaint: Upper Extremity Problem/Injury Time Seen by Provider: 03/03/17 13:50 - History of Present Illness Narrative History of Present Illness (Text): 03/03/17 14:13 66 year old male, whose past medical history includes Atrial fibrillation, CHF, COPD, and renal disorder (currently on dialysis every Monday, Monday, and Monday), presents to the emergency department complaining of worsening swelling and pain to the right elbow s/p fall 3 days ago. Patient was recently hospitalized for observation on 02/29/16 and returned to the emergency department yesterday for the same complaint. Elbow x-ray showed no fracture and patient has been taking Endocet with no relief. Patient also reports right knee pain, but denies any fever, chills, chest pain, shortness of breath, nausea, vomiting, diarrhea, urinary symptoms, back pain, neck pain, headache, dizziness , or any other complaints. PMD: Dr. Tijerina Past Medical History - Provider Review Nursing Documentation Reviewed: Yes - Past History Past History: Non-Contributing - Infectious Disease Hx of Infectious Diseases: None - Tetanus Immunization Tetanus Immunization: Unknown - Cardiac Hx Cardiac Disorders: Yes Hx Cardiac Arrhythmia: Yes (afib) Hx Congestive Heart Failure: Yes - Pulmonary Hx Respiratory Disorders: Yes Hx Chronic Obstructive Pulmonary Disease (COPD): Yes Hx Sleep Apnea: Yes - Neurological Hx Neurological Disorder: No - HEENT Hx HEENT Disorder: No - Renal Hx Renal Disorder: Yes (cystoscopy) Hx Dialysis: Yes ([facility] left arm shunt) Date of Last Dialysis Treatment: 02/28/17 - Endocrine/Metabolic Hx Endocrine Disorders: No - Hematological/Oncological Hx Blood Disorders: No - Integumentary Hx Dermatological Disorder: Yes (bilateral le edema +2,dusky,dry skin. non pitting.left forearm shunt) - Musculoskeletal/Rheumatological Hx Musculoskeletal Disorders: No Hx Falls: No - Gastrointestinal Hx Gastrointestinal Disorders: Yes Hx Gastroesophageal Reflux: Yes - Genitourinary/Gynecological Hx Genitourinary Disorders: No - Psychiatric Hx Psychophysiologic Disorder: No Hx Substance Use: No - Surgical History Other/Comment: cystoscopy. L arm shunt for dialysis - Anesthesia Hx Anesthesia: Yes Hx Anesthesia Reactions: No Hx Malignant Hyperthermia: No Family/Social History - Physician Review Nursing Documentation Reviewed: Yes Family/Social History: No Known Family HX Smoking Status: Former Smoker Hx Alcohol Use: No (former drinker) Hx Substance Use: No Allergies/Home Meds Allergies/Adverse Reactions: Allergies No Known Allergies Allergy (Verified 02/28/17 11:43) Home Medications: Home Meds Medication Instructions Recorded Confirmed Pantoprazole [Protonix EC Tab] 40 mg PO DAILY 02/28/17 03/03/17 Review of Systems - Physician Review All systems were reviewed & negative as marked: Yes - Review of Systems Constitutional: absent: Fevers Respiratory: absent: SOB Physical Exam - Physical Exam Narrative Physical Exam (Text): Constitutional: No acute distress. Head: Normocephalic. Atraumatic. Eyes: PERRL. ENT: Moist mucous membranes. Neck: Supple. Cardiovascular: Regular rate. Chest: No tenderness. Respiratory: Clear to auscultation bilaterally. GI: Soft. Nontender. Nondistended. Back: No CVA tenderness. Musculoskeletal: Radial pulse 2+. Medial ecchymosis. Decreased ROM secondary to pain. Right elbow swelling. Skin: No rash. Neurologic: Alert, no focal deficit. Vital Signs Temp Pulse Resp BP Pulse Ox 03/03/17 17:33 65 18 155/74 H 99 03/03/17 16:12 68 18 158/70 H 98 03/03/17 14:31 98.5 F 71 18 162/65 H 95 Medical Decision Making ED Course and Treatment: 03/03/17 14:13 Plan: -- Extremity Upper Right CT w/o Contrast -- Reassess and disposition Progress Notes: 03/03/17 14:23 Patient refused any medication except Dilaudid. I explained risks of this medication and not used in my practice. Patient is agreeable with CT Scan. He later was agreeable to toradol, I administered 30mg, which he states did help a little. 03/03/17 17:25 IMPRESSION: Soft tissue swelling without acute articular or osseous abnormality. Instructed to f/u with Ortho for further management. Sensation and motor intact to R arm and range of motion intact in R elbow although with pain. - RAD Interpretation Radiology Orders: 03/03/17 14:13 EXT UPPER W/O CONTRAST RIGHT [CT] Stat - Medication Orders Current Medication Orders: Discontinued Medications Ketorolac Tromethamine (Toradol) 30 mg IM STAT STA Stop: 03/03/17 15:00 Last Admin: 03/03/17 15:14 Dose: 30 mg MAR Pain Assessment Document 03/03/17 15:14 MS (Rec: 03/03/17 15:16 MS [id number]) Pain Reassessment Is this a pain reassessment? No Sleep Is patient sleeping during reassessment? No Presence of Pain Presence of Pain Yes Pain Scale Used Pain Scale Used Numeric Location Left, Right or Bilateral Right Pain Location Body Site Arm Description Description Intermittent Intensity of Pain at present 8 IM Administration Charges Document 03/03/17 15:14 MS (Rec: 03/03/17 15:16 MS [id number]) Injection Site MAR Injection Site Right Deltoid Charges for Administration # of IM Administrations 1 - Scribe Statement The provider has reviewed the documentation as recorded by the John Rhoades Provider Scribe Attestation: All medical record entries made by the Scribe were at my direction and personally dictated by me. I have reviewed the chart and agree that the record accurately reflects my personal performance of the history, physical exam, medical decision making, and the department course for this patient. I have also personally directed, reviewed, and agree with the discharge instructions and disposition. Disposition/Present on Arrival - Present on Arrival Any Indicators Present on Arrival: No History of DVT/PE: No History of Uncontrolled Diabetes: No Urinary Catheter: No History of Decub. Ulcer: No History Surgical Site Infection Following: None - Disposition Have Diagnosis and Disposition been Completed?: Yes Diagnosis: Elbow injury Disposition: HOME/ ROUTINE Disposition Time: 17:25 Patient Plan: Discharge Patient Problems: Current Active Problems Problem Status Onset Elbow injury Acute Condition: STABLE Discharge Instructions (ExitCare): Swollen Joint (ED) Referrals: Ken yMers DO [Staff Provider] - Follow up with primary Forms: [employer] (Hebrew)
[2017-03-03 14:31] VITALS: RESP 18; TEMP 98.5
--- NOTE | 2017-03-03 17:25 | CT ---
PROCEDURE: CT right upper extremity HISTORY: R elbow swelling/pain. No antecedent history of trauma COMPARISON: None TECHNIQUE: 1.25 mm axial acquisition and display. Coronal and sagittal reconstructions. Radiation dosimetry DLP (mGy-cm) 663.87 FINDINGS: Cutaneous subcutaneous soft tissue swelling at and below the level of the distal humerus. This extends to the triceps musculature. There is relative sparing of the brachialis muscle. No visulaized radiopaque/visualized foreign body. No air identified within visualize soft tissues. No underlying osseous abnormalities. Specifically no evidence of osteomyelitis. Visualized humerus, radius, ulna (including the olecranon) are unremarkable. IMPRESSION: Soft tissue swelling without acute articular or osseous abnormality.
[2017-03-03 17:33] VITALS: BP 155/74; PULSE 65; O2SAT 99
== END 2017-03-03 18:11 | disposition home or self-care (01) ==
LOC: ED 13:41
DX: S59.901A Unspecified injury of right elbow, initial encounter (principal); W18.30XA Fall on same level, unspecified, initial encounter; Y92.9 Unspecified place or not applicable
CPT/HCPCS: 29240; 73200; 96372; 99285; J1885

== ENCOUNTER 2017-05-15 15:31 | Emergency (ER) | payer MEDICARE, BC ==
[2017-05-15 15:33] VITALS: BMI 32.7
[2017-05-15] MEDS ORDERED: Morphine 2 mg/ml ISec IVP STA (16:17)
--- NOTE | 2017-05-15 16:30 | ED PDOC ---
Arrival/HPI - General Historian: Patient - History of Present Illness Time/Duration: 24 hours Symptom Course: Worsening Activities at Onset: Rest Context: Sitting, Standing, Walking, Exertion - General Chief Complaint: Shortness Of Breath Time Seen by Provider: 05/15/17 15:37 - History of Present Illness Narrative History of Present Illness (Text): 05/15/17 16:23 Patient is a 66M with a PMH of ckd, chf who comes to the ED with a CC of sob that started on Monday. He receives dialysis TTS. He states that on Monday they took off 3L but were unable to finish dialysis due to leg cramping and hypotension. He states that on Monday he woke up feeling SOB and was unable to lie flat. Today he went to the dialysis center and they told him to be evaluated in the ED. He also is complaining of abdominal pain surrounding his umbilical hernia that he has had for several years. We were able to reduce this hernia in the ED. (Kiet Kaufman) Past Medical History - Past History Past History: Non-Contributing - Infectious Disease Hx of Infectious Diseases: None - Tetanus Immunization Tetanus Immunization: Unknown - Cardiac Hx Cardiac Disorders: Yes Hx Cardiac Arrhythmia: Yes (afib) Hx Congestive Heart Failure: Yes - Pulmonary Hx Respiratory Disorders: Yes Hx Chronic Obstructive Pulmonary Disease (COPD): Yes Hx Sleep Apnea: Yes - Neurological Hx Neurological Disorder: No - HEENT Hx HEENT Disorder: No - Renal Hx Renal Disorder: Yes (cystoscopy) Hx Dialysis: Yes (TTHS left arm shunt) Type of Dialysis Access: L arm AV shunt Date of Last Dialysis Treatment: 05/13/17 - Endocrine/Metabolic Hx Endocrine Disorders: No - Hematological/Oncological Hx Blood Disorders: No - Integumentary Hx Dermatological Disorder: Yes (bilateral le edema +2,dusky,dry skin. non pitting.left forearm shunt) - Musculoskeletal/Rheumatological Hx Musculoskeletal Disorders: No Hx Falls: No - Gastrointestinal Hx Gastrointestinal Disorders: Yes Hx Gastroesophageal Reflux: Yes - Genitourinary/Gynecological Hx Genitourinary Disorders: No - Psychiatric Hx Psychophysiologic Disorder: No Hx Substance Use: No - Surgical History Other/Comment: cystoscopy. L arm shunt for dialysis - Anesthesia Hx Anesthesia: Yes Hx Anesthesia Reactions: No Hx Malignant Hyperthermia: No Family/Social History Family/Social History: Unknown Family HX Smoking Status: Former Smoker Hx Alcohol Use: No (former drinker) Hx Substance Use: No Allergies/Home Meds Allergies/Adverse Reactions: Allergies No Known Allergies Allergy (Verified 02/28/17 11:43) Home Medications: Home Meds Medication Instructions Recorded Confirmed Pantoprazole [Protonix EC Tab] 40 mg PO DAILY 02/28/17 05/15/17 Review of Systems - Review of Systems Constitutional: Normal Eyes: Normal ENT: Normal Respiratory: SOB, Cough. absent: Sputum, Wheezing Cardiovascular: Normal. absent: Chest Pain, Syncope Gastrointestinal: Abdominal Pain (umbilical hernia) Genitourinary Male: Normal Musculoskeletal: Normal Skin: Normal Neurological: Normal Endocrine: Normal Hemo/Lymphatic: Normal Psychiatric: Normal Physical Exam Temperature: Afebrile Blood Pressure: Normal Pulse: Regular Respiratory Rate: Normal Appearance: Positive for: Well-Appearing, Non-Toxic, Comfortable Pain Distress: Mild Mental Status: Positive for: Alert and Oriented X 3 - Systems Exam Head: Present: Atraumatic, Normocephalic Pupils: Present: PERRL Extroacular Muscles: Present: EOMI Conjunctiva: Present: Normal Mouth: Present: Moist Mucous Membranes Neck: Present: Normal Range of Motion Respiratory/Chest: Present: Clear to Auscultation, Good Air Exchange, Rales ( bilateral lung bases). No: Respiratory Distress, Accessory Muscle Use Cardiovascular: Present: Regular Rate and Rhythm, Murmurs, Normal S1, S2 Abdomen: Present: Tenderness, Normal Bowel Sounds, Hernias (umbilical hernia, reduced in the ED). No: Distention, Peritoneal Signs Upper Extremity: Present: Normal Inspection. No: Cyanosis, Edema Lower Extremity: Present: Normal Inspection, Edema (mild edmea in bilateral lower extremities) Neurological: Present: GCS=15, CN II-XII Intact Skin: Present: Warm, Dry, Normal Color. No: Rashes Psychiatric: Present: Alert, Oriented x 3 Vital Signs Temp Pulse Resp BP Pulse Ox 05/15/17 19:50 97.5 F L 71 24 148/61 05/15/17 16:30 98.2 F 71 18 136/69 97 Medical Decision Making Re-evaluation Time: 19:29 Reassessment Condition: Improved ED Course and Treatment: 05/15/17 16:55 CXR shows pulmonary congestion, patient is visibly SOB DDX: Fluid overload, COPD/CHF exacerbation less likely Called Senior Treasury Analyst Dr. Mcdaniels, waiting for call back. 05/15/17 17:19 Patient in dialysis 05/15/17 18:[address] with patients primary Dr[address] Christianson, made aware of case and agrees with our plan 05/15/17 19:17 Patient back from dialysis. Breathing much better. 05/15/17 19:25 Stable for discharge. Patient should follow up with PMD Dr. Christianson in 7-10 days in the office. He should call to make an appointment. Patient should continue all home medications as well as Mucinex 600mg PO BID as needed for cough and congestion. He should continue Dialysis as scheduled TTS. He should return to the ED if symptoms worsen. (Kiet Kaufman) In agreement with resident note, which includes further HPI details. Patient was seen and evaluated with resident, came up with plan and treatment together. Patient is a 66 year old male complaining of shortness of breath that began the day before. Pulse Ox 80% on room air Lungs: Mild rales bilaterally; no tachypnea Abdomen: Palpated 1.5 inch umbilical hernia, reducible by me Differential Diagnosis included but are not limited to: ESRD, needs dialysis Progress Notes: EKG: Ordered, reviewed, and independently interpreted the EKG. Rate : 78 BPM Rhythm : A Fib Interpretation : Incomplete RBBB. Comparison : No change from previous on 05/15/2017 (Jed Regalado) - Lab Interpretations Lab Results: 05/15/17 16:47 05/15/17 16:47 Lab Results 05/15/17 16:47: Sodium 142, Potassium 4.7, Chloride 99, Carbon Dioxide 25, Anion Gap 24 H, BUN 83 H, Creatinine 11.9 H* D, Est GFR ( Amer) 5, Est GFR (Non-Af Amer) 4, Random Glucose 96, Calcium 10.4, Total Bilirubin 0.4, AST 29, ALT 24, Alkaline Phosphatase 75, Total Protein 7.2, Albumin 4.1, Globulin 3.1, Albumin/Globulin Ratio 1.3 05/15/17 16:47: WBC 12.6 H D, RBC 3.83, Hgb 11.1 L, Hct 35.5 L, MCV 92.7, MCH 29.0, MCHC 31.3, RDW 16.9 H, Plt Count 290, MPV 9.7, Gran % 92.6 H, Lymph % ( Auto) 5.4 L, Graves % (Auto) 1.5, Eos % (Auto) 0.4 L, Baso % (Auto) 0.1, Gran # 11.71 H, Lymph # (Auto) 0.7 L, Graves # (Auto) 0.2, Eos # (Auto) 0.1, Baso # (Auto ) 0.01, Neutrophils % (Manual) 95 H, Band Neutrophils % 1, Lymphocytes % (Manual ) 3 L, Monocytes % (Manual) 1, Platelet Evaluation Normal, Hypochromasia Slight , Ovalocytes Slight - RAD Interpretation Radiology Orders: 05/15/17 16:16 CHEST PORTABLE [RAD] Stat - Medication Orders Current Medication Orders: Discontinued Medications Guaifenesin (Mucinex La) 600 mg PO ONCE ONE Stop: 05/15/17 19:22 Last Admin: 05/15/17 19:39 Dose: 600 mg Morphine Sulfate (Morphine) 2 mg IM STAT STA Stop: 05/15/17 16:54 Last Admin: 05/15/17 16:57 Dose: 2 mg MAR Pain Assessment Document 05/15/17 16:57 LA (Rec: 05/15/17 16:58 LA [id number]) Pain Reassessment Is this a pain reassessment? No Sleep Is patient sleeping during reassessment? No Presence of Pain Presence of Pain Yes Pain Scale Used Pain Scale Used Numeric Location Pain Location Body Site Abdomen Description Acceptable Level of Pain 5 IM Administration Charges Document 05/15/17 16:57 LA (Rec: 05/15/17 16:58 LA [id number]) Injection Site MAR Injection Site Left Arm Charges for Administration # of IM Administrations 1 Oxycodone/Acetaminophen (Percocet 5/325 Mg Tab) 1 tab PO STAT STA Stop: 05/15/17 19:39 Last Admin: 05/15/17 20:04 Dose: 1 tab MAR Pain Assessment Document 05/15/17 20:04 LA (Rec: 05/15/17 20:05 LA [id number]) Pain Reassessment Is this a pain reassessment? No Sleep Is patient sleeping during reassessment? No Presence of Pain Presence of Pain Yes Pain Scale Used Pain Scale Used Numeric Location Pain Location Body Site Abdomen Description Intensity of Pain at present 7 - PA / TELEVISION CABINET FINISHER / Resident Statement MD/DO has reviewed & agrees with the documentation as recorded. MD/DO has examined the patient and agrees with the treatment plan. Disposition/Present on Arrival - Present on Arrival Any Indicators Present on Arrival: No History of DVT/PE: No History of Uncontrolled Diabetes: No Urinary Catheter: No History of Decub. Ulcer: No History Surgical Site Infection Following: None - Disposition Have Diagnosis and Disposition been Completed?: Yes Disposition Time: 19:29 Patient Plan: Discharge - Disposition Diagnosis: Fluid overload Disposition: HOME/ ROUTINE Patient Problems: Current Active Problems Problem Status Onset Fluid overload Acute Condition: STABLE Additional Instructions: Stable for discharge. Patient should follow up with PMD Dr. Christianson in 7-10 days in the office. He should call to make an appointment. Patient should continue all home medications as well as Mucinex 600mg PO BID as needed for cough and congestion. He should continue Dialysis as scheduled TTS. He should return to the ED if symptoms worsen. Mr. Tellez, thank you for letting us take care of you today. Your provider was Dr. Regalado and Dr. Kaufman. You were treated for Fluid Overload. The emergency medical care you received today was directed at your acute symptoms. If you were prescribed any medication, please fill it and take as directed. It may take several days for your symptoms to resolve. Return to the Emergency Department if your symptoms worsen, do not improve, or if you have any other problems. Please contact your doctor or call one of the physicians/clinics you have been referred to that are listed on the Patient Visit Information form that is included in your discharge packet. Bring any paperwork you were given at discharge with you along with any medications you are taking to your follow up visit. Our treatment cannot replace ongoing medical care by a primary care provider (PCP) outside of the emergency department. Thank you for allowing the [facility] team to be part of your care today. Prescriptions: Guaifenesin [Mucinex] 600 mg PO BID PRN #10 tab.er.[id number] PRN Reason: Cough And Congestion Forms: [employer] (Malay)
[2017-05-15] MEDS ORDERED: Morphine 2 mg/ml ISec IM STA (16:53)
[2017-05-15 17:04] LABS: BASO # 0.01 K/mm3 (0.0-2.0); BASO % 0.1 % (0.0-3.0); EOS # 0.1 (0.0-0.7); EOS % 0.4 % (1.5-5.0); GRAN # 11.71 (1.4-6.5); GRAN % 92.6 % (50.0-68.0); HEMOGLOBIN 11.1 g/dL (14.0-18.0); LYMPH # 0.7 (1.2-3.4); LYMPH % 5.4 % (22.0-35.0); MEAN CELL VOLUME 92.7 fl (80.0-105.0); MEAN CORPUSCULAR HGB CONC 31.3 g/dl (31.0-37.0); MEAN PLATELET VOLUME 9.7 fl (7.0-11.0); MONO # 0.2 (0.1-0.6); MONO % 1.5 % (1.0-6.0); PLATELET COUNT 290 10^3/uL (120.0-450.0); RBC 3.83 10^6/uL (3.5-6.1); RED CELL DISTRIBUTION WIDTH 16.9 % (11.5-14.5); WHITE BLOOD COUNT 12.6 10^3/ul (4.5-11.0)
[2017-05-15 17:30] LABS: ALB/GLOB RATIO 1.3 (1.1-1.8); ALBUMIN 4.1 g/dL (3.0-4.8); CALCIUM 10.4 mg/dL (8.4-10.5)
--- NOTE | 2017-05-15 18:34 | RAD ---
HISTORY: SOB COMPARISON: 02/28/2017. FINDINGS: LUNGS: No active pulmonary disease. PLEURA: No significant pleural effusion identified, no pneumothorax apparent. CARDIOVASCULAR: Cardiomegaly. No evidence of acute, significant cardiovascular disease. OSSEOUS STRUCTURES: No significant abnormalities. VISUALIZED UPPER ABDOMEN: Normal. OTHER FINDINGS: None. IMPRESSION: No active disease. No significant interval change compared to the prior examination(s).
[2017-05-15 19:06] LABS: BAND 1 % (0-2); HYPOCHROMIA SLIGHT; LYMPHOCYTE 3 % (22.0-35.0); MONOCYTE 1 % (1.0-6.0); NEUTROPHIL 95 % (50.0-70.0); OVALOCYTES SLIGHT; PLATELET ESTIMATE NORMAL (NORMAL)
[2017-05-15] MEDS ORDERED: guaiFENesin 600 mg ER Tab PO ONE (19:21)
[2017-05-15] MEDS ORDERED: Oxycodone/Acetaminophen 5/325 mg Tab PO STA (19:38)
[2017-05-15 19:51] VITALS: TEMP 97.5
[2017-05-15 20:17] VITALS: O2SAT 99
[2017-05-16 01:44] VITALS: BP 146/70; PULSE 76; RESP 18
--- NOTE | 2017-05-16 10:32 | CARD ---
APPROVED REPORT EKG Measurement Heart [id number] <Conclusion> Atrial fibrillation Incomplete left bundle branch block T wave abnormality, consider lateral ischemia or digitalis effect Abnormal ECG
== END 2017-05-15 21:55 | disposition home or self-care (01) ==
LOC: ED 15:31
DX: E87.70 Fluid overload, unspecified (principal); I48.91 Unspecified atrial fibrillation; I50.9 Heart failure, unspecified; N18.9 Chronic kidney disease, unspecified; Z99.2 Dependence on renal dialysis; Z87.891 Personal history of nicotine dependence
CPT/HCPCS: 71045; 80053; 85025; 93005; 96372; 99285; J2270

== ENCOUNTER 2017-05-20 04:03 | Inpatient (IN) | payer MEDICARE, BC ==
[2017-05-20 04:03] VITALS: BMI 32.7
[2017-05-20] MEDS ORDERED: Albuterol-Ipratrop 3 mg / 0.5 (3 ml) UD IH STA (04:18)
[2017-05-20 05:01] LABS: BASO # 0.02 K/mm3 (0.0-2.0); BASO % 0.2 % (0.0-3.0); EOS # 0.1 (0.0-0.7); EOS % 1.2 % (1.5-5.0); GRAN # 6.94 (1.4-6.5); GRAN % 82.5 % (50.0-68.0); HEMOGLOBIN 11.5 g/dL (14.0-18.0); LYMPH % 12.4 % (22.0-35.0); MEAN CELL VOLUME 91.6 fl (80.0-105.0); MEAN CORPUSCULAR HEMOGLOBIN 29.4 pg (25.0-35.0); MEAN CORPUSCULAR HGB CONC 32.1 g/dl (31.0-37.0); MEAN PLATELET VOLUME 10.1 fl (7.0-11.0); MONO # 0.3 (0.1-0.6); MONO % 3.7 % (1.0-6.0); RBC 3.91 10^6/uL (3.5-6.1); RED CELL DISTRIBUTION WIDTH 16.6 % (11.5-14.5); WHITE BLOOD COUNT 8.4 10^3/ul (4.5-11.0)
[2017-05-20 05:34] LABS: ALB/GLOB RATIO 1.3 (1.1-1.8); CALCIUM 10.5 mg/dL (8.4-10.5); TROPONIN I 0.13 ng/mL
--- NOTE | 2017-05-20 05:52 | ED PDOC ---
Arrival/HPI - General Historian: Patient - History of Present Illness Time/Duration: < week Symptom Onset: Gradual Symptom Course: Worsening Activities at Onset: Rest Context: Sitting, Standing, Walking <Kiet Kaufman - Last Filed: 05/20/17 05:48> <Manish Claros - Last Filed: 05/20/17 06:33> - General Chief Complaint: Shortness Of Breath Time Seen by Provider: 05/20/17 04:04 - History of Present Illness Narrative History of Present Illness (Text): 05/20/17 05:49 Patient is a 66M with a PMH of COPD, ESRD on HD TTS comes in with SOB x 2 days. States last time at dialysis they only took 2L off and they needed to stop prematurely as he started to cramp. Patient describes the feeling of SOB as if he is drowning. Denies any chest pain, SOB, fevers or chills. No other complaints at this time. (Kiet Kaufman) Past Medical History - Past History Past History: Non-Contributing - Infectious Disease Hx of Infectious Diseases: None - Tetanus Immunization Tetanus Immunization: Unknown - Cardiac Hx Cardiac Disorders: Yes Hx Cardiac Arrhythmia: Yes (afib) Hx Congestive Heart Failure: Yes - Pulmonary Hx Respiratory Disorders: Yes Hx Chronic Obstructive Pulmonary Disease (COPD): Yes Hx Sleep Apnea: Yes - Neurological Hx Neurological Disorder: No - HEENT Hx HEENT Disorder: No - Renal Hx Renal Disorder: Yes (cystoscopy) Hx Dialysis: Yes (TT left arm shunt) Date of Last Dialysis Treatment: 05/13/17 - Endocrine/Metabolic Hx Endocrine Disorders: No - Hematological/Oncological Hx Blood Disorders: No - Integumentary Hx Dermatological Disorder: Yes (bilateral le edema +2,dusky,dry skin. non pitting.left forearm shunt) - Musculoskeletal/Rheumatological Hx Musculoskeletal Disorders: No Hx Falls: No - Gastrointestinal Hx Gastrointestinal Disorders: Yes Hx Gastroesophageal Reflux: Yes - Genitourinary/Gynecological Hx Genitourinary Disorders: No - Psychiatric Hx Psychophysiologic Disorder: No Hx Substance Use: No - Surgical History Other/Comment: cystoscopy. L arm shunt for dialysis - Anesthesia Hx Anesthesia: Yes Hx Anesthesia Reactions: No Hx Malignant Hyperthermia: No <Kiet Kaufman - Last Filed: 05/20/17 05:48> - Provider Review Nursing Documentation Reviewed: Yes <Manish Claros - Last Filed: 05/20/17 06:33> Family/Social History Family/Social History: Unknown Family HX Smoking Status: Former Smoker Hx Alcohol Use: No (former drinker) Hx Substance Use: No <Kiet Kaufman Filed: 05/20/17 05:48> - Physician Review Nursing Documentation Reviewed: Yes <Manish Claros Filed: 05/20/17 06:33> Allergies/Home Meds <Kiet Kaufman Filed: 05/20/17 05:48> <Manish Claros Filed: 05/20/17 06:33> Allergies/Adverse Reactions: Allergies No Known Allergies Allergy (Verified 05/20/17 04:15) Home Medications: Home Meds Medication Instructions Recorded Confirmed Pantoprazole [Protonix EC Tab] 40 mg PO DAILY 02/28/17 05/20/17 Review of Systems - Review of Systems Constitutional: Normal Eyes: Normal ENT: Normal Respiratory: SOB, Cough Cardiovascular: absent: Chest Pain Gastrointestinal: Normal Genitourinary Male: Normal Musculoskeletal: Normal Skin: Normal Neurological: Normal Endocrine: Normal Hemo/Lymphatic: Normal Psychiatric: Normal <Kiet Kaufman Filed: 05/20/17 05:48> - Physician Review All systems were reviewed & negative as marked: Yes <Manish Claros Filed: 05/20/17 06:33> Physical Exam Temperature: Afebrile Blood Pressure: Normal Pulse: Regular Respiratory Rate: Normal Appearance: Positive for: Well-Appearing, Non-Toxic, Comfortable Pain Distress: None Mental Status: Positive for: Alert and Oriented X 3 - Systems Exam Head: Present: Atraumatic, Normocephalic Pupils: Present: PERRL Extroacular Muscles: Present: EOMI Conjunctiva: Present: Normal Mouth: Present: Moist Mucous Membranes Neck: Present: Normal Range of Motion Respiratory/Chest: Present: Clear to Auscultation, Good Air Exchange. No: Respiratory Distress, Accessory Muscle Use Cardiovascular: Present: Regular Rate and Rhythm, Murmurs. No: Normal S1, S2 Abdomen: Present: Normal Bowel Sounds. No: Tenderness, Distention, Peritoneal Signs Upper Extremity: Present: Normal Inspection Lower Extremity: Present: Normal Inspection Neurological: Present: GCS=15, CN II-XII Intact Skin: Present: Warm, Dry, Normal Color. No: Rashes Psychiatric: Present: Alert, Oriented x 3, Normal Insight, Normal Concentration <Kiet Kaufman - Last Filed: 05/20/17 05:48> Vital Signs Reviewed: Yes <Manish Claros - Last Filed: 05/20/17 06:33> Vital Signs Pulse Resp BP Pulse Ox 05/20/17 06:18 70 18 129/66 95 05/20/17 05:00 18 93 L Medical Decision Making <Kiet Kaufman - Last Filed: 05/20/17 05:48> - Lab Interpretations I have reviewed the lab results: Yes - EKG Interpretation Interpreted by ED Physician: Yes Type: 12 lead EKG <HyacinthManish - Last Filed: 05/20/17 06:33> ED Course and Treatment: 05/20/17 05:54 Duoneb CBC, CMP CXR was congested. BNP elevated. Will admit and schedule patient for dialysis ( NahunamyKiet shankar) EKG shows NSR at 67 BPM. Interpreted by Guard Lieutenant. Patient Seen With Resident: In agreement with resident note which contains more details about the patient. Patient was seen and evaluated with resident. Came up with plan and treatment together. 66 year old male presents complaining of shortness of breath that began 2 days ago. Plan: -- EKG -- Labs -- Duoneb -- O2 via Nasal Cannula -- Reassess and disposition 05/20/17 06:00 Case was d/w PMJorge.Accepted patient to her service./ on consult (HyacinthManish) - Lab Interpretations Lab Results: 05/20/17 04:34 05/20/17 04:34 Lab Results 05/20/17 04:34: WBC 8.4 D, RBC 3.91, Hgb 11.5 L, Hct 35.8 L, MCV 91.6, MCH 29.4 , MCHC 32.1, RDW 16.6 H, Plt Count 196, MPV 10.1, Gran % 82.5 H, Lymph % (Auto) 12.4 L, Wake % (Auto) 3.7, Eos % (Auto) 1.2 L, Baso % (Auto) 0.2, Gran # 6.94 H , Lymph # (Auto) 1.0 L, Wake # (Auto) 0.3, Eos # (Auto) 0.1, Baso # (Auto) 0.02 05/20/17 04:34: Sodium 142, Potassium 4.8, Chloride 99, Carbon Dioxide 26, Anion Gap 22 H, BUN 78 H, Creatinine 11.5 H*, Est GFR ( Amer) 5, Est GFR (Non-Af Amer) 4, Random Glucose 155 H, Calcium 10.5, Magnesium 2.6 H, Total Bilirubin 0.3, AST 30, ALT 28, Alkaline Phosphatase 69, Lactate Dehydrogenase 430, Total Creatine Kinase 86, Troponin I 0.13 H* D, NT-Pro-B Natriuret Pep 74517 H, Total Protein 7.1, Albumin 4.0, Globulin 3.0, Albumin/Globulin Ratio 1.3 - RAD Interpretation Radiology Orders: 05/20/17 04:18 CHEST PORTABLE [RAD] Stat - Medication Orders Current Medication Orders: Albuterol/Ipratropium (Duoneb 3 Mg/0.5 Mg (3 Ml) Ud) 3 ml IH Q3H PRN PRN Reason: Shortness of Breath Discontinued Medications Albuterol/Ipratropium (Duoneb 3 Mg/0.5 Mg (3 Ml) Ud) 3 ml IH STAT STA Stop: 05/20/17 04:19 Last Admin: 05/20/17 04:36 Dose: 3 ml - PA / PRODUCT EVANGELIST / Resident Statement MD/DO has reviewed & agrees with the documentation as recorded. MD/DO has examined the patient and agrees with the treatment plan. <Kiet Kaufman - Last Filed: 05/20/17 05:48> - Scribe Statement The provider has reviewed the documentation as recorded by the Scribe <Manish Claros - Last Filed: 05/20/17 06:33> - Scribe Statement Lenny Rhoades Provider Scribe Attestation: All medical record entries made by the Scribe were at my direction and personally dictated by me. I have reviewed the chart and agree that the record accurately reflects my personal performance of the history, physical exam, medical decision making, and the department course for this patient. I have also personally directed, reviewed, and agree with the discharge instructions and disposition. (Manish Claros) Disposition/Present on Arrival - Present on Arrival Any Indicators Present on Arrival: No History of DVT/PE: No History of Uncontrolled Diabetes: No Urinary Catheter: No History of Decub. Ulcer: No History Surgical Site Infection Following: None - Disposition Have Diagnosis and Disposition been Completed?: Yes Disposition Time: 05:56 Patient Plan: Admission <Kiet Kaufman - Last Filed: 05/20/17 05:48> <Manish Claros - Last Filed: 05/20/17 06:33> - Disposition Diagnosis: Fluid overload, CHF (congestive heart failure) Disposition: HOSPITALIZED Patient Problems: Current Active Problems Problem Status Onset CHF (congestive heart failure) Acute Condition: GUARDED Discharge Instructions (ExitCare): Heart Failure (ED) Forms: [employer] (Estonian)
[2017-05-20] MEDS ORDERED: Albuterol-Ipratrop 3 mg / 0.5 (3 ml) UD IH PRN (06:00)
--- NOTE | 2017-05-20 08:39 | RAD ---
HISTORY: SOB COMPARISON: Frontal chest radiograph 05/15/2017. FINDINGS: LUNGS: No active pulmonary disease. PLEURA: No significant pleural effusion identified, no pneumothorax apparent. CARDIOVASCULAR: Cardiomegaly appears stable. No definitive pulmonary vascular congestion pattern identified at this time. OSSEOUS STRUCTURES: No significant abnormalities. VISUALIZED UPPER ABDOMEN: Normal. OTHER FINDINGS: None. IMPRESSION: Stable cardiomegaly. No definite pulmonary vascular congestion. No infiltrate, pleural effusion or pneumothorax identified bilaterally.
--- NOTE | 2017-05-20 13:15 | HP ---
DATE OF EXAM: 05/20/[address] Dione Tijerina. HISTORY OF PRESENT ILLNESS: The patient is a 66-year-old male admitted to the Emergency Department on 05/20/2017 with increasing shortness of breath, which started on hemodialysis. The patient denied any chest pain. There is no fever, no chills. No cough. PAST MEDICAL HISTORY: Includes end-stage renal disease, on hemodialysis; COPD and CHF. PAST SURGICAL HISTORY: None. ALLERGIES: NO KNOWN ALLERGIES. CURRENT MEDICATIONS: Include pantoprazole 40 mg daily, Eliquis 2.5 mg twice daily and Percocet 5/325 mg three times daily p.r.n. SOCIAL HISTORY: The patient has a history of tobacco use in the remote past. No history of alcohol or substance abuse. REVIEW OF SYSTEMS: Essentially negative other than above. The patient denies melena, no bright red blood per rectum. No abdominal pain. No nausea, no vomiting. No fever, no chills. No jaundice, no rash. PHYSICAL EXAMINATION GENERAL: The patient is a well-developed, somewhat obese male in no acute distress, currently receiving hemodialysis. VITAL SIGNS: Blood pressure 178/83, pulse 72, respiratory rate 20. The patient is afebrile. HEENT: Head is normocephalic, atraumatic. Pupils equal, round and reactive to light. Extraocular movements intact. NECK: Supple. No thyromegaly. No carotid bruit. LUNGS: Show bibasilar crackles. HEART: Regular rate and rhythm. ABDOMEN: Soft, obese, nontender. Fluid wave is present. EXTREMITIES: With a trace bipedal edema. NEUROLOGIC: The patient is awake and oriented x3 without focal sensory or motor deficits. SKIN: Warm and dry. LABORATORY DATA: WBC is 8.4, hemoglobin 11.5, hematocrit 35.8. Sodium 142, potassium 4.8 chloride 99, CO2 26, BUN 78, creatinine 11.5, glucose 155. Troponin is elevated at 0.13. BNP is elevated 39,100. Chest x-ray shows cardiomegaly with no definite pulmonary vascular congestion or infiltrate. IMPRESSION 1. Congestive heart failure, rule out a acute myocardial ischemia/infarct. 2. End-stage renal disease, on hemodialysis. 3. Hypertension. 4. Hyperglycemia. PLAN: The patient is admitted to Telemetry floor. We will obtain Cardiology consultation, monitor troponin levels. Continue hemodialysis and renal followup. GAYLE Garzon MD
[2017-05-20] MEDS: Albuterol-Ipratrop 3 mg / 0.5 (3 ml) UD IH SCH ×2 (14:00→20:04)
[2017-05-20] MEDS ORDERED: guaiFENesin DM 100 mg-10 mg/5 ml UD PO PRN (20:21)
--- NOTE | 2017-05-20 21:03 | CON ---
DATE: 05/20/2017 PULMONARY CONSULTATION REFERRING PHYSICIAN: Dione Tijerina M.D. REASON FOR CONSULTATION: Sleep apnea syndrome, chronic lung disease. HISTORY OF PRESENT ILLNESS: This is a 66-year-old male with renal failure, dialysis dependent, chronic obstructive lung disease. Apparently last dialysis could not take much fluid out. No feeling of short of breath. There is no fever. No chills. No nausea or vomiting. Does have a leg swelling. PAST MEDICAL HISTORY: Chronic obstructive lung disease, sleep apnea syndrome, renal failure, dialysis dependent, history of GERD. FAMILY HISTORY: Significant for cardiopulmonary disease reported. SOCIAL HISTORY: Former smoker, no any alcohol use. ALLERGIES: NONE KNOWN. MEDICATIONS: He was given DuoNeb in ER. HOME MEDICATIONS: Tylenol , Percocet, Protonix, Mucinex and Eliquis. REVIEW OF SYSTEMS: No headache, rhinitis, shortness of breath, orthopnea. No chest pain. No nausea, no vomiting or diarrhea. Does have a leg swelling. Admit to loud snoring, daytime sleeping and tired. Recently he had a sleep study test done, results are pending. PHYSICAL EXAMINATION: GENERAL: Sitting side of the bed, mild distress, has cough and shortness of breath. VITAL SIGNS: Temperature is 98, heart rate 71, respiratory rate is 20, blood pressure 178/83, pulse ox 96% on 2 liters nasal cannula. HEENT: Moist mucous membrane. Crowded airway. Mallampati score is 4. NECK: Supple. No JVD. LUNGS: Have crackles at bases. HEART: S1 and S2. ABDOMEN: Soft, nontender, nondistended. EXTREMITIES: Does have edema. NEUROLOGICAL: Awake and follows simple commands. LABORATORY DATA: Shows hemoglobin 11.5, hematocrit 35.8, WBC 8.4, platelet is 196. Sodium 142, potassium 4.8, chloride 99, bicarbonate 26, BUN 78, creatinine 11.5, glucose 155, calcium 10.5, magnesium 2.6, total bili 0.3, AST 30, ALT 28, alkaline phosphatase is 69. Troponin is 0.13. ProBNP 39,100, albumin is 4.0. Chest x-ray done in ER shows cardiomegaly, otherwise unremarkable. IMPRESSION AND PLAN: Chronic obstructive lung disease, renal failure, dialysis dependent, atrial fibrillation, sleep apnea syndrome, morbid obesity. The patient is evaluated at [facility] for possible renal transplant. He was told the need to lose some weight and also need a further pulmonary workup. I will place on BiPAP 12/8 and 30% oxygen if he is still here after dialysis. Continue inhaled bronchodilator. Outpatient followup on sleep study and PFT. Kathryn Soria MD
--- NOTE | 2017-05-20 23:31 | CARD ---
APPROVED REPORT EKG Measurement Heart [id number] <Conclusion> Atrial fibrillation Nonspecific intraventricular block T wave abnormality, consider lateral ischemia or digitalis effect Abnormal ECG
[2017-05-21] MEDS: Albuterol-Ipratrop 3 mg / 0.5 (3 ml) UD IH SCH ×4 (01:23→20:31)
--- NOTE | 2017-05-21 15:33 | CP.PCM.PN ---
Subjective - Date & Time of Evaluation Date of Evaluation: 05/21/17 Time of Evaluation: 14:15 - Subjective Subjective: resting comfortably, NAD Objective - Vital Signs/Intake and Output Vital Signs (last 24 hours): Temp Pulse Resp BP Pulse Ox 97.9 F 66 19 125/64 93 L 05/21/17 12:00 05/21/17 14:04 05/21/17 12:00 05/21/17 12:00 05/21/17 06:00 Intake and Output: 05/21/17 05/21/17 06:59 18:59 Intake Total 720 Output Total 0 Balance 720 - Medications Medications: Current Medications Albuterol/Ipratropium (Duoneb 3 Mg/0.5 Mg (3 Ml) Ud) 3 ml IH Q3H PRN PRN Reason: Shortness of Breath Last Admin: 05/20/17 06:33 Dose: 3 ml Albuterol/Ipratropium (Duoneb 3 Mg/0.5 Mg (3 Ml) Ud) 3 ml IH [id number] [facility] Last Admin: 05/21/17 13:59 Dose: 3 ml Apixaban (Eliquis) 2.5 mg PO BID [facility] PRN Reason: Protocol Last Admin: 05/21/17 11:20 Dose: 2.5 mg Famotidine (Pepcid) 20 mg IVP DAILY [facility] Last Admin: 05/21/17 11:20 Dose: 20 mg Guaifenesin/Dextromethorphan (Robitussin Dm) 5 ml PO Q4H PRN PRN Reason: Cough Oxycodone/Acetaminophen (Percocet 5/325 Mg Tab) 1 tab PO Q6H PRN PRN Reason: Pain, moderate (4-7) Stop: 05/23/17 12:42 Sevelamer HCl (Renagel) 800 mg PO WM [facility] Last Admin: 05/21/17 12:49 Dose: Not Given - Respiratory Exam Respiratory Exam: Rales, Rhonchi - Cardiovascular Exam Cardiovascular Exam: REGULAR RHYTHM - GI/Abdominal Exam GI & Abdominal Exam: Soft, Normal Bowel Sounds - Extremities Exam Extremities Exam: Pedal Edema - Neurological Exam Neurological Exam: Alert, Awake - Skin Skin Exam: Dry, Warm Assessment and Plan (1) CHF (congestive heart failure) Status: Acute (2) Elevated troponin I level Status: Acute (3) End stage chronic kidney disease Status: Chronic (4) COPD (chronic obstructive pulmonary disease) Status: Acute - Assessment and Plan (Free Text) Plan: continue dialysis, monitor troponin levels, cardiology/pulmonary and renal follow-up, Dr. Tijerina to resume care of patient in am
--- NOTE | 2017-05-21 16:46 | CON ---
DATE: 05/21/2017 CARDIOLOGY CONSULTATION (DR. MENCHACA) HISTORY OF PRESENT ILLNESS: The patient is a 66-year-old male who presents with marked dyspnea. The patient's past medical history is extensive including chronic atrial fibrillation treated with anticoagulation, severe pulmonary hypertension secondary to COPD from long history of smoking, and end-stage renal disease. The patient is admittedly noncompliant with diet nor medical advice. He presented with CHF. He underwent emergency dialysis yesterday. He is still mildly short of breath. He also suffers from sleep apnea. SOCIAL HISTORY: The patient still occasionally smokes. He denies chest pain. REVIEW OF SYSTEMS: A 14-point review of systems is reviewed in detail. Other than additional pedal edema, no other cardiac symptomatology is noted. PHYSICAL EXAMINATION: VITAL SIGNS: Blood pressure is 119/61; heart rates in the 80s, atrial fibrillation. NECK: Negative JVD. LUNGS: Decreased breath sounds bilaterally. HEART: Reveals S1, S2. EXTREMITIES: Trace edema. EKG shows atrial fibrillation with nonspecific ST-T changes. LABORATORY DATA: Includes an INR of 1.21. Chemistries, the troponin is 0.13 with a ProBNP of 39,000. Hemoglobin is 11.5. IMPRESSION: 1. Acute diastolic congestive heart failure. 2. Severe pulmonary hypertension. 3. Chronic atrial fibrillation. 4. Anemia. 5. End-stage renal disease. 6. Chronic obstructive pulmonary disease. 7. Sleep apnea. 8. Noncompliance with medical advice as well as medication and dietary restrictions. Given these findings, I have discussed this with the patient in detail. The patient is currently on dialysis and his breathing has improved. In the morning, we will transfer the care back to Dr. Menchaca. James Delgadillo MD
[2017-05-21] MEDS: Oxycodone/Acetaminophen 5/325 mg Tab PO PRN (18:57)
--- NOTE | 2017-05-21 19:08 | PN ---
DATE: PULMONARY PROGRESS NOTE REFERRING PHYSICIAN: Dione Tijerina MD. SUBJECTIVE: He is lying in the bed, feels better. Decreased shortness of breath. Got dialysis yesterday. Tolerated BiPAP well since last night. No nausea, no vomiting, and no diarrhea. Does have leg swelling. OBJECTIVE: GENERAL: In no acute distress. VITAL SIGNS: Temperature is 98, heart rate is 66, respiratory rate is 80, blood pressure 125/64, pulse ox 93% on BiPAP. HEENT: Moist mucous membrane. Crowded airway. Mallampati score is 4. NECK: Supple. No JVD. LUNGS: Have a few crackles. HEART: S1 and S2. ABDOMEN: Soft, nontender. No organomegaly. EXTREMITIES: Do have edema. NEUROLOGIC: Awake, alert, and follows simple command. MEDICATIONS: He is on DuoNeb every 3 hours p.r.n. and every 6 hours round the clock, Eliquis 2.5 mg twice a day, Pepcid 20 mg daily, Percocet one tablet every 6 hours p.r.n., Renagel 800 mg with the meals, guaifenesin 5 mL every 4 hours p.r.n. LABORATORY DATA: No new lab is available since yesterday. IMPRESSION AND PLAN: Chronic obstructive lung disease; renal failure, dialysis dependent; atrial fibrillation; sleep apnea syndrome; obesity. Pulmonary point of view, doing okay. Continue BiPAP while sleeping. Keep head at 45 degrees. Gastric prophylaxis. On anticoagulation. Upon discharge, will need pulmonary function test. Fall precaution. Thank you and we will follow with you. Kathryn Soria MD
[2017-05-22] MEDS: Albuterol-Ipratrop 3 mg / 0.5 (3 ml) UD IH SCH ×4 (01:42→19:37)
[2017-05-22 07:07] LABS: TROPONIN I 0.13 ng/mL
--- NOTE | 2017-05-22 19:18 | CP.PCM.PN ---
<Altagracia Amaro - Last Filed: 05/22/17 19:15> Subjective - Date & Time of Evaluation Date of Evaluation: 05/22/17 Time of Evaluation: 11:50 - Subjective Subjective: Chief Complaint: L knee pain, chronic 66 yr male w/ history of Afib, CHF, COPD, sleep apnea, ESRD (T- Th-S hemodialysis), chronic pain in L knee, & hernia. [place] [facility] [place]. Today, pt seen in hemodialysis with complaints of chronic L knee pain. Denies any headache, nausea, vomiting, fever, chills, shortness of breath, chest pain, diarrhea, constipation or urinary changes. Objective - Vital Signs/Intake and Output Vital Signs (last 24 hours): Temp Pulse Resp BP Pulse Ox 98.4 F 70 19 138/59 L 99 05/22/17 17:17 05/22/17 17:17 05/22/17 17:17 05/22/17 17:17 05/22/17 17:17 Intake and Output: 05/22/17 05/23/17 18:59 06:59 Intake Total 600 Output Total 0 Balance 600 - Medications Medications: Current Medications Albuterol/Ipratropium (Duoneb 3 Mg/0.5 Mg (3 Ml) Ud) 3 ml IH Q3H PRN PRN Reason: Shortness of Breath Last Admin: 05/20/17 06:33 Dose: 3 ml Albuterol/Ipratropium (Duoneb 3 Mg/0.5 Mg (3 Ml) Ud) 3 ml IH [id number] [facility] Last Admin: 05/22/17 14:15 Dose: Not Given Apixaban (Eliquis) 2.5 mg PO BID [facility] PRN Reason: Protocol Last Admin: 05/22/17 18:35 Dose: 2.5 mg Famotidine (Pepcid) 20 mg PO HS [facility] Guaifenesin/Dextromethorphan (Robitussin Dm) 5 ml PO Q4H PRN PRN Reason: Cough Lisinopril (Zestril) 5 mg PO DAILY [facility] Oxycodone/Acetaminophen (Percocet 5/325 Mg Tab) 1 tab PO Q6H PRN PRN Reason: Pain, moderate (4-7) Stop: 05/23/17 12:42 Last Admin: 05/21/17 18:57 Dose: 1 tab Sevelamer HCl (Renagel) 800 mg PO WM [facility] Last Admin: 05/22/17 17:15 Dose: 800 mg - Constitutional Appears: No Acute Distress - Head Exam Head Exam: ATRAUMATIC, NORMAL INSPECTION, NORMOCEPHALIC - Eye Exam Eye Exam: EOMI, Normal appearance Pupil Exam: NORMAL ACCOMODATION - ENT Exam ENT Exam: Mucous Membranes Moist, Normal Exam - Neck Exam Neck Exam: Normal Inspection - Cardiovascular Exam Cardiovascular Exam: Irregular Rhythm, +S1, +S2 - GI/Abdominal Exam GI & Abdominal Exam: Soft, Hernia, Normal Bowel Sounds - Extremities Exam Additional comments: L AV fistula. - Back Exam Back Exam: NORMAL INSPECTION - Neurological Exam Neurological Exam: Alert, Awake, Oriented x3 - Psychiatric Exam Psychiatric exam: Normal Affect, Normal Mood - Skin Skin Exam: Dry, Intact, Normal Color, Warm Assessment and Plan (1) Noncompliance Status: Acute (2) Acute diastolic (congestive) heart failure Status: Acute (3) Pulmonary hypertension, moderate to severe Status: Acute (4) Anemia Status: Acute (5) CHF (congestive heart failure) Status: Acute (6) End stage chronic kidney disease Status: Chronic (7) COPD (chronic obstructive pulmonary disease) Status: Acute (8) Elevated troponin I level Status: Acute (9) Fluid overload Status: Acute - Assessment and Plan (Free Text) Plan: Pt is going for stress test or cardiac cath per cardio recomendation. Bipap q HS. GI/VTE prophlyaxis. PT onboard. Pain management: percocet 1 tab q 6hr Consults: Nephro - Dr. Mcqueen Cardio - Dr. Corona Pulmonary - Dr. Soria Reviewed: CXR = stable cardiomegaly. no definate pulmonary vascular congestion, no infiltrate, pleural effusion, or pneumothorax identified bilaterally ECG = ABNORMAL, Afib, nonspecific intraventricular block, T wave abnormality, consider lateral ischemia or digitalis effect <Dione Tijerina - Last Filed: 05/25/17 08:18> Objective - Vital Signs/Intake and Output Vital Signs (last 24 hours): Temp Pulse Resp BP Pulse Ox 98.7 F 75 19 152/64 H 98 05/24/17 12:00 05/24/17 13:40 05/24/17 12:00 05/24/17 12:00 05/24/17 06:00 - Labs Labs: 05/23/17 13:00 05/23/17 13:00 Assessment and Plan - Assessment and Plan (Free Text) Plan: 66 yr male w/ history of Afib, CHF, COPD, sleep apnea, ESRD (T- - hemodialysis), chronic pain in L knee, & hernia. Pt admitted [place] [facility] [place]. Today, pt seen in hemodialysis with complaints of chronic L knee pain. Denies any headache, nausea, vomiting, fever, chills, shortness of breath, chest pain, diarrhea, constipation or urinary changes. pt is seen and examined at bed side , agreed all above . d/d with [facility]IST , will f/u
--- NOTE | 2017-05-22 20:08 | CON ---
DATE: 05/22/2017 REFERRING PHYSICIAN: Dione Tijerina MD REASON FOR CONSULTATION: End-stage renal disease, on hemodialysis. CHIEF COMPLAINT AND HISTORY OF PRESENT ILLNESS: This is a 66-year-old male who is coming into the hospital after he was found to have shortness of breath. The patient has a history of having nonadherence to his fluid restriction. He has a history of COPD. The patient was given a full treatment of dialysis when he was admitted and he has improvement of his symptoms. He has no complaints of any chest pain this morning. No shortness of breath. No nausea, no vomiting. No dysuria or frequency. No nocturia. He also has moved out of [place] recently and has been traveling back and forth from [place] for his dialysis treatment. He has been advised multiple times that he needs to find a dialysis unit that is closer to his home in order to prevent the danger of traveling after he gets dialyzed. He states he does understand, the psychotherapist social worker from patient is also aware and plans are being made for this transfer to take place. No headaches or dizziness. No nausea, no vomiting. REVIEW OF SYMPTOMS: All other review of symptoms are within normal limits except that was mentioned. ALLERGIES: NO KNOWN DRUG ALLERGIES. HOME MEDICATIONS: Have been reviewed, on the MRF. PAST MEDICAL HISTORY: 1. End-stage renal disease, on hemodialysis. 2. Left arm fistula. 3. Anemia, secondary to chronic kidney disease. 4. Secondary hyperparathyroidism. 5. Sleep apnea. 6. Atrial fibrillation. 7. Pulmonary hypertension. PAST SURGICAL HISTORY: Left AV fistula. SOCIAL HISTORY: The patient is a former smoker. He used to smoke 3 packs per day. He states he quit when he was 26. He denies alcohol abuse, but does drink socially. FAMILY HISTORY: Noncontributory. PHYSICAL EXAMINATION: VITAL SIGNS: Temperature is 97.6, pulse is 74, blood pressure is 143/67, respirations 22, O2 saturation 100%. GENERAL: The patient lying in bed, uncomfortable, and in no acute distress. HEENT: Atraumatic and normocephalic. Anicteric sclerae. Moist mucosa. Overly conjunctivae. No oral lesions. NECK: No JVD, anterior and posterior adenopathy, thyromegaly, or bruits. CARDIOVASCULAR: S1 and S2 regular. No murmur, rubs, or gallop. LUNGS: Clear to auscultation bilaterally. No wheezes, rales, or rhonchi. ABDOMEN: Bowel sounds are positive. Soft, nontender and nondistended. No hepatosplenomegaly. No rebound and no guarding EXTREMITIES: No cyanosis, clubbing, or edema. Left arm with good thrill and bruit. NEUROLOGIC: No facial asymmetry. Tongue is midline. No uvula deviation. Power is 5/5 upper extremity and lower extremity. Sensation intact in upper extremity and lower extremity. PSYCHIATRIC: He is awake, alert and oriented x3. No anxiety or depression. He has normal affect. GENITOURINARY: No CVA tenderness. VASCULAR: 2+ pulses in the carotid pulses and pedal pulses. SKIN: No erythema or nodules SPINE: Shows normal curvature. LABORATORY DATA: Labs have been reviewed. White count of 8.4, hemoglobin 11.5. Chemistry shows a sodium of 142, potassium is 4.2. Troponin was 0.13. ASSESSMENT: 1. End-stage renal disease, on hemodialysis. 2. Left arm fistula. 3. Anemia secondary to chronic kidney disease. 4. Secondary hyperparathyroidism. 5. Sleep apnea. 6. Nonadherence to his dialysis treatment regimen. 7. Atrial fibrillation. PLAN: The patient is currently comfortable. He is going to get a short course of hemodialysis. I spoke to the patient about his adherence to his fluid restriction. He does understand. The patient is on apixaban for his anticoagulation. He is on Renagel for his secondary hyperparathyroidism. He is getting BiPAP. He is on heart-healthy diet. I will change that to a renal diet. His next dialysis is going to be today and after stay, he will go back on his Monday, , Monday regimen. We will continue to follow as an outpatient for his dialysis treatment. The patient also was seen by transplantation in [facility], but not deemed a candidate because of his shortness of breath and nonadherence to his treatment regimen. Erik Neff MD
[2017-05-22] MEDS: Oxycodone/Acetaminophen 5/325 mg Tab PO PRN (21:58)
--- NOTE | 2017-05-23 01:29 | PN ---
DATE: 05/22/2017 PULMONARY PROGRESS NOTE REFERRING PHYSICIAN: Dione Tijerina MD SUBJECTIVE: Patient is lying in the bed, head at 45 degrees. Night was unremarkable. Tolerated BiPAP well. Seen by Cardiology. Scheduled for cardiac testing. No cough. No sputum production. No nausea. No vomiting. No diarrhea. Trace leg swelling. OBJECTIVE: GENERAL: In no acute distress. VITAL SIGNS: Temp is 98, heart rate is 70, respiratory rate is 18, blood pressure 138/59, pulse ox 99% on 2 L nasal cannula. HEENT: Moist mucous membrane. Crowded airway. Mallampati score is 4. NECK: Supple. No JVD. LUNGS: Have a fair airflow with few rhonchi. HEART: S1 and S2. ABDOMEN: Soft and nontender. No organomegaly. EXTREMITIES: Have trace edema. NEUROLOGIC: Awake, alert. Follows simple command. MEDICATIONS: He is on DuoNeb every 3 hour p.r.n. and every 6 hour around the clock, Eliquis 2.5 mg twice a day, Pepcid 20 mg at bedtime, Percocet 5/325 one tab every 6 hour p.r.n., Renagel 800 mg with meals, Robitussin DM 5 mL every 4 hour p.r.n., Zestril 5 mg daily. LABORATORY DATA: Reviewed and noted. TSH 1.12. No other labs available. Troponin level was 0.13. IMPRESSION AND PLAN: Chronic obstructive lung disease, renal failure, dialysis dependent, atrial fibrillation, may have sleep apnea syndrome, obesity, has a leakage of cardiac enzyme, rule out coronary artery disease. From a Pulmonary point of view, he is doing okay. Encourage bilevel positive airway pressure use. Keep head at 45 degrees. Bronchodilator. Anticoagulation. Gastric prophylaxis. Dialysis. Thank you and we will follow with you. Kathryn Soria MD
[2017-05-23] MEDS: Albuterol-Ipratrop 3 mg / 0.5 (3 ml) UD IH SCH ×4 (02:34→21:30)
--- NOTE | 2017-05-23 05:18 | PN ---
DATE: 05/22/2017 REASON FOR CONSULTATION: Cardiac evaluation, admitted with congestive heart failure, history of chronic atrial fibrillation, COPD, obesity, end-stage renal disease, on dialysis. SUBJECTIVE: The patient denies any chest pain, shortness of breath or any palpitations. Feels better after dialysis. PHYSICAL EXAMINATION: GENERAL: Not in apparent distress. VITAL SIGNS: Temperature afebrile, heart rate 74, blood pressure 142/67. HEENT: PERRLA. Extraocular muscles intact. NECK: Supple. No carotid bruit or thyromegaly. CHEST: Clear to auscultation. HEART: S1 and S2 regular. ABDOMEN: Soft. EXTREMITIES: Clubbing and cyanosis negative. LABORATORY DATA: Blood workup, WBC 8.5, hemoglobin 11.5, hematocrit 35.8 and platelet count 196. Chemistry shows sodium 142, potassium 4.0, chloride 99, carbon dioxide 26, anion gap of 22, BUN 78, and creatinine 11.5. Troponin 0.13, 0.13. BNP 39,100. IMPRESSION: This is a 66-year-old male with a past medical history significant for end-stage renal disease, on dialysis, more than 4 years ago, very noncompliance, having a lot of stress going on in the family and having separation from his with 40 years of marriage, so the patient used to drink fluid as well as liquor, because of noncompliance, admitted with decompensated congestive heart failure, denies any chest pain, shortness of breath or any palpitation. He states that he had a cardiac catheterization 4 years ago in [facility] in [facility] where he had a sudden cardiac and very much scared for going again into the cardiac catheterization. At that time, it was told that it was mild coronary artery disease, no significant blockade, but history of atrial fibrillation for long time, but recently started on Eliquis on last admission. The patient did echocardiography on last admission on 03/01/2017 that showed ejection fraction of 65%, right ventricular function is moderately reduced, right ventricle is moderately dilated, severe aortic regurgitation, mitral regurgitation, moderate to severe tricuspid regurgitation and systolic pressure 112 consistent with severe pulmonary hypertension, no pericardial effusion, biatrial enlargement, atrial fibrillation. Though the troponin is positive, it could be secondary to underlying coronary artery disease, most likely secondary to end-stage renal disease and dialysis, because of the stress when the patient came in with a gross fluid overload and elevated blood pressure as well systolic blood pressure and pulmonary hypertension. Admitting blood pressure of 180/83. RECOMMENDATION: For risk stratification, suggest stress test. As mentioned above, the patient is very much concerned and nervous about the cardiac catheterization because of the bad experience of sudden cardiac during the cardiac cath 4 years ago at [facility], who does not want any cardiac catheterization, but agreeable for a stress test. We will proceed for the stress test, keep n.p.o. after midnight for a stress test. Further recommendation after the stress test. We will follow with you. In the interim, continue aggressive treatment, continue Eliquis for atrial fibrillation, continue dialysis. We will put low dose of SOILA inhibitors for remodeling the ventricle and because of severe atrial regurgitation, we will start 5 mg from today, will give 2.5 now. We will keep him n.p.o. after 12:00 midnight for a stress test in the morning. Thank you, Dr. Tijerina for providing us the opportunity in taking care of the patient, Shayan Tellez. Kathryn Corona MD cc: Dione Tijerina MD
[2017-05-23 05:57] VITALS: O2SAT 98
--- NOTE | 2017-05-23 09:05 | PN ---
DATE: SUBJECTIVE: The patient has no complaints of any chest pain or shortness of breath. No headaches, no dizziness. PHYSICAL EXAMINATION VITAL SIGNS: Temperature is 98.5, pulse is 65, blood pressure is 121/75 and respirations 20. GENERAL: The patient is lying in bed, flat, comfortable. HEENT: No oral lesion. Anicteric sclerae. Moist mucosa. NECK: No JVD, adenopathy, or thyromegaly. CARDIOVASCULAR: S1 and S2, regular. No murmurs, rubs, or gallops. LUNGS: Clear to auscultation bilaterally. No wheeze, rales, or rhonchi. ABDOMEN: Bowel sounds are positive. Soft, nontender and nondistended. EXTREMITIES: No cyanosis, clubbing or edema. ASSESSMENT 1. End-stage renal disease, on hemodialysis. 2. Left arm fistula. 3. Anemia secondary to chronic kidney disease. 4. Secondary hyperparathyroidism. 5. Sleep apnea. 6. Nonadherence to his dialysis treatment. PLAN: The patient had another short treatment yesterday for two hours, mainly to remove fluid. Patient is on Eliquis. . He is going to be on Renagel for his secondary hyperparathyroidism. He is on Percocet for pain. Patient is on lisinopril for his blood pressure. He is on BiPAP. He is going for a stress test today. Today is also his regular day for dialysis. He will get a full treatment of dialysis today. Erik Neff MD
[2017-05-23 13:13] LABS: BASO # 0.01 K/mm3 (0.0-2.0); BASO % 0.2 % (0.0-3.0); EOS # 0.3 (0.0-0.7); EOS % 5.2 % (1.5-5.0); GRAN # 4.92 (1.4-6.5); GRAN % 76.8 % (50.0-68.0); HEMOGLOBIN 9.9 g/dL (14.0-18.0); LYMPH # 0.8 (1.2-3.4); LYMPH % 11.9 % (22.0-35.0); MEAN CELL VOLUME 90.8 fl (80.0-105.0); MEAN CORPUSCULAR HEMOGLOBIN 28.4 pg (25.0-35.0); MEAN CORPUSCULAR HGB CONC 31.3 g/dl (31.0-37.0); MEAN PLATELET VOLUME 9.3 fl (7.0-11.0); MONO # 0.4 (0.1-0.6); MONO % 5.9 % (1.0-6.0); RBC 3.48 10^6/uL (3.5-6.1); RED CELL DISTRIBUTION WIDTH 16.4 % (11.5-14.5); WHITE BLOOD COUNT 6.4 10^3/ul (4.5-11.0)
[2017-05-23 13:38] LABS: ALB/GLOB RATIO 1.3 (1.1-1.8); ALBUMIN 4.1 g/dL (3.0-4.8); CALCIUM 10.2 mg/dL (8.4-10.5)
--- NOTE | 2017-05-23 16:09 | PN ---
DATE: REASON FOR CONSULTATION AND FOLLOWUP: Cardiac evaluation, admitted with congestive heart failure, history of chronic atrial fibrillation, COPD, obesity, end-stage renal disease on dialysis. SUBJECTIVE: The patient denies any chest pain, shortness of breath, or any palpitation. OBJECTIVE: GENERAL: Not in apparent distress. Had dialysis yesterday. Claims that he was non-compliant because of family issues and get frustrated in the process of separation of 40 years of marriage and that is why the patient is drinking alcohol and excess amount of fluid, water as well. VITAL SIGNS: Temperature afebrile, heart rate 65, blood pressure 141/75. HEENT: PERRLA. Extraocular muscles intact. NECK: Supple. No carotid bruits or thyromegaly. CHEST: Clear to auscultation. HEART: S1 and S2, regular. ABDOMEN: Soft. EXTREMITIES: Clubbing and cyanosis negative. LABORATORY DATA: Blood workup as follows: WBC 8.5, hemoglobin , hematocrit 35.8, and platelet count 196. Chemistry shows sodium 140, potassium 4, chloride 99, carbon dioxide 26, anion gap of 22. BUN 70, creatinine 11.5. Troponin 0.13, 0.13. IMPRESSION: Decompensated congestive heart failure secondary to fluid overload; end-stage renal disease, on dialysis; multiple regurgitant valvular heart disease; coronary artery disease, on last admission, a stress was suggested. The patient never shows up. History of cardiac catheterization 4 years ago at [facility] and was told negative. No significant blockage, but this procedure complicated with sudden cardiac and the patient had CPR done. According to the patient, for 2 minutes, he was resuscitated, so he was very much concerned about cardiac catheterization and reluctant because of past bad experience, but he is willing to go for a stress test. He is n.p.o. for his stress test today. Last echo showed ejection fraction 65%, right ventricle function is moderately reduced, right ventricle moderately dilated, severe aortic regurgitation, mitral regurgitation, [id number] tricuspid regurgitation, right ventricular systolic pressure , pulmonary hypertension, biatrial enlargement dated 03/01/2017. RECOMMENDATIONS: Continue aggressive blood pressure. Continue Eliquis, atrial fibrillation, chronic. Continue lisinopril, 5 mg started from today, yesterday they gave 2.5. We will start low-dose Coreg as well with a stress test today. Discussed with Dr. Jeffery this morning who is taking care of the patient today. The patient's blood level shows triglycerides 54, cholesterol 112, LDL 34, HDL 42, TSH 1.12, hemoglobin A1c 6. Thank you, Dr. Tijerina for providing us the opportunity in taking care of the patient, Shayan Tellez. We will follow with you. Kathryn Corona MD
[2017-05-23] MEDS ORDERED: Lidocaine 5% Patch TD STA (19:28)
--- NOTE | 2017-05-23 20:40 | CARD ---
APPROVED REPORT Protocol: LEXISCAN Test Type: Lexiscan Sestamibi Stress Test Attending Physician: Dr. Kathryn Bennett Referring Physician: Dr. Dione Tijerina Test Indications: Chest Pain Height:6 ft 1 in Weight:251lbs Medications: duoneb, eliquis, pepcid, robitussin, zestril, percocet, sevelamer Medical History: 66 year old male with a h/o COPD, CHF, HTN, GERD and ESRD on dialysis Target HR: 153 bpm Resting ECG: A fib with T inversion in I,II,,aVL, V6 Resting Heart Rate: 74 bpm Resting Blood Pressure: 134/64mmHg Submaximum (85%): 130 bpm PROCEDURE Pharmacologic stress testing was performed using 0.4mg per 5ml of regadenoson given intravenously over 7-10 seconds. Reversal agent aminophyline 100 mg, given intravenously for Other. POST EXERCISE Reason for Termination: Protocol completed Target HR: No Max HR: 76 bpm 56% of Maximum Predicted HR: 153 bpm Exercise duration: 01:04 min:sec, 0 Stage Exercise capacity: 1.0METs Max Blood Pressure: 134/64mmHg Blood Pressure response to exercise: normal resting BP - appropriate response Heart Rate response to exercise: appropriate Chest Pain: No, none Angina index: 0 Arrhythmia: No, none from base line ST Change: No, none from base line Deviation: 0 mm TEST SUMMARY [id number]. INFUSIONDOSE [id number]/.[id number]. INFUSIONDOSE [id number]/.[id number]. [id number]. INTERPRETATION Stress EKG Conclusion: Negative for chest pain, Inconclusive IV Lexiscan for ischemia B/c of base line abnoral ECG, Nuclear scan to follow. Signed by Kathryn Bennett Electronically Approved: 05/23/2017 12:18:21 EXAM: Myocardial Perfusion REST/STRESS Stress Test Type: Pharmacologic Imaging Protocol Rest Spect myocardial perfusion imaging was performed in supine position 45 minutes following the injection of 10.9 mCi of Tc-99 Myoview. At peak stress, the patient was injected intravenously with 30.9mCi of Tc-99 tetrofosmin after an infusion time of 0 minutes and 10 seconds. Gated Stress Spect was performed 65 minutes after intravenous Tc-99 Myoview injection. The images were gated to evaluate regional wall motion and calculate ventricular ejection fraction.Images were reconstructed using backfilter projection method in short horizontal and verticle long axis. Spect slices were generated. LV Perfusion The quality of the study is good. The left ventricle is markedly enlarged in size. The right ventricle is prominent. The lung uptake is within normal limits. The distribution of tracer reveals mildly heterogeneous uptake without discrete perfusion defect on the stress study. The rest myocardial perfusion study shows no significant change. Wall Motion Wall motion study shows good contractility of the left ventricle. LVEF = 54%. Conclusion 1. Normal SPECT myocardial perfusion study. 2. Heterogeneous activities are most likely due to soft tissue attenuation. 3. Normal gated wall motion of the left ventricle. LVH.
--- NOTE | 2017-05-24 00:28 | PN ---
DATE: SUBJECTIVE: Patient is a 66-year-old male. Patient was seen and examined at the bedside. He went for stress test today. Complaining about hip pain. He used to have Percocet, but was discontinued. Now, I gave Lidoderm patch. No headache, no dizziness. No fever. No hematuria, no hematochezia. PHYSICAL EXAMINATION: VITAL SIGNS: Temperature 98.5, pulse 76, blood pressure 141/75, respiratory rate 20. HEENT: Head is normocephalic and atraumatic. Eyes PERRLA. Extraocular muscles are intact. Conjunctivae clear. Nose patent. Mucous membranes moist. NECK: Supple. No carotid bruits. No JVD or thyromegaly. CHEST: Bilaterally symmetrical. HEART: S1 and S2 positive. LUNGS: Clear to auscultation. ABDOMEN: Soft. Bowel sounds present. No organomegaly. EXTREMITIES: No edema. No cyanosis. NEUROLOGIC: The patient is awake and alert. Moving all 4 extremities. No focal deficits. MEDICATIONS: Coreg, DuoNeb, Eliquis, Pepcid, Renagel, lisinopril. LABORATORY DATA: White blood cell 6.4, hemoglobin 9.9, hematocrit 31.6, platelets 160. Sodium 137, potassium 5.1, BUN 82, creatinine 14, phosphorus 9.4, magnesium 2.5. Troponin 0.13 x2. ASSESSMENT AND PLAN: Mr. Shayan Tellez is a 66-year-old male with decompensated congestive heart failure; secondary to fluid overload; end-stage renal disease, on dialysis; multiple regurgitant valvular heart disease; coronary artery disease. Stress test is done today. Had cardiac catheterization done 4 years ago at [facility] and was told it was negative, but this procedure was complicated with sudden cardiac problem and patient had cardiopulmonary resuscitation done, as per Dr. Corona. According to the patient, for 2 minutes, he was resuscitated, so he was very much concerned about cardiac catheterization and reluctant because he had bad experience. Last echo showed ejection fraction of 65%, pulmonary hypertension. Continue aggressive blood pressure management. Continue Eliquis for atrial fibrillation and lisinopril for high blood pressure. Getting low dose of Coreg. Appreciate Dr. Corona's input and Dr. Neff's input. Patient was seen by Dr. Soria also. The patient has chronic obstructive lung disease, obesity, rule out obstructive sleep apnea syndrome. Getting bronchodilators, gastric prophylaxis. Hip pain, rule out degenerative joint disease. Started on lidocaine patch. We will follow up. Dione Tijerina MD
[2017-05-24] MEDS: Albuterol-Ipratrop 3 mg / 0.5 (3 ml) UD IH SCH ×3 (02:20→14:28)
--- NOTE | 2017-05-24 02:40 | PN ---
DATE: PULMONARY PROGRESS NOTE REFERRING PHYSICIAN: Dr. Dione Tijerina. SUBJECTIVE: He is on dialysis. He had just finished his dialysis. Night was unremarkable. He has a stress test done today. No nausea. No vomiting. No diarrhea. Decreased leg swelling. OBJECTIVE: GENERAL: In no acute distress. VITAL SIGNS: Temperature is 98, heart rate 76, respiratory rate is 20, blood pressure 141/75, pulse ox 98% on BiPAP. HEENT: Moist mucous membrane. Crowded airway. Mallampati score is 4. NECK: Supple. No JVD. LUNGS: Fair airflow. No rhonchi. HEART: S1 and S2. ABDOMEN: Soft, nontender. No organomegaly. EXTREMITIES: There is no edema. NEUROLOGIC: Awake, alert, and follows simple command. MEDICATIONS: He is on Coreg 3.125 mg twice a day, albuterol/Atrovent nebulizer every 3 hours p.r.n. and every 6 hours [id number], Eliquis 2.5 mg twice a day, Pepcid 20 mg at bedtime, guaifenesin every 4 hours p.r.n., Zestril 5 mg daily. LABORATORY DATA: Shows hemoglobin 9.9, hematocrit 31.6, WBC is 6.1, platelet count is 160. Sodium 137, potassium 5.1, chloride 95, bicarbonate 23, BUN 82, creatinine 114, glucose 102, calcium is 10.2, phosphorous is 9.4, magnesium 2.5, AST 19, ALT 21, alkaline phosphatase is 61, albumin 4.1. TSH 1.12. He has a myocardial stress test done today, which shows LV ejection fraction is 54%, heterogenous activity, most likely due to soft tissue attenuation, normal gated wall motion of the left ventricle, has some LVH though. IMPRESSION AND PLAN: Chronic obstructive lung disease; renal failure, dialysis-dependent; atrial fibrillation, sleep apnea syndrome, obesity. Pulmonary point of view, doing well. Continue BiPAP while sleeping, bronchodilator. Once cleared by Cardiology, discharge planning, outpatient pulmonary function test and follow up sleep study results. Thank you and we will follow with you. Kathryn Soria MD :33:10 [facility] # [id number]
[2017-05-24] MEDS ORDERED: Oxycodone/Acetaminophen 5/325 mg Tab PO ONE (11:32)
[2017-05-24 13:41] VITALS: PULSE 75
--- NOTE | 2017-05-24 13:58 | CP.PCM.DIS ---
<SondraAltagracia Anu - Last Filed: 05/24/17 13:25> Provider - Provider Date of Admission: 05/22/17 12:56 Attending physician: Dione Tijerina MD Primary care physician: Dione Tijerina MD Consults: Nephro - Dr. Mcqueen Cardio - Dr. Corona Pulmonary - Dr. Soria Time Spent in preparation of Discharge (in minutes): 45 Diagnosis - Discharge Diagnosis (1) Noncompliance Status: Acute (2) Acute diastolic (congestive) heart failure Status: Acute (3) Pulmonary hypertension, moderate to severe Status: Acute (4) Anemia Status: Acute (5) CHF (congestive heart failure) Status: Acute (6) End stage chronic kidney disease Status: Chronic (7) COPD (chronic obstructive pulmonary disease) Status: Acute (8) Elevated troponin I level Status: Acute (9) Fluid overload Status: Acute Hospital Course - Lab Results Lab Results: Most Recent Lab Values WBC 6.4 10^3/ul (4.5-11.0) D 05/23/17 13:00 RBC 3.48 10^6/uL (3.5-6.1) L 05/23/17 13:00 Hgb 9.9 g/dL (14.0-18.0) L 05/23/17 13:00 Hct 31.6 % (42.0-52.0) L 05/23/17 13:00 MCV 90.8 fl (80.0-105.0) 05/23/17 13:00 MCH 28.4 pg (25.0-35.0) 05/23/17 13:00 MCHC 31.3 g/dl (31.0-37.0) 05/23/17 13:00 RDW 16.4 % (11.5-14.5) H 05/23/17 13:00 Plt Count 160 10^3/uL (120.0-450.0) 05/23/17 13:00 MPV 9.3 fl (7.0-11.0) 05/23/17 13:00 Gran % 76.8 % (50.0-68.0) H 05/23/17 13:00 Lymph % (Auto) 11.9 % (22.0-35.0) L 05/23/17 13:00 [place] % (Auto) 5.9 % (1.0-6.0) 05/23/17 13:00 Eos % (Auto) 5.2 % (1.5-5.0) H 05/23/17 13:00 Baso % (Auto) 0.2 % (0.0-3.0) 05/23/17 13:00 Gran # 4.92 (1.4-6.5) 05/23/17 13:00 Lymph # (Auto) 0.8 (1.2-3.4) L 05/23/17 13:00 [place] # (Auto) 0.4 (0.1-0.6) 05/23/17 13:00 Eos # (Auto) 0.3 (0.0-0.7) 05/23/17 13:00 Baso # (Auto) 0.01 K/mm3 (0.0-2.0) 05/23/17 13:00 Sodium 137 mmol/L (132-148) 05/23/17 13:00 Potassium 5.1 mmol/L (3.6-5.0) H 05/23/17 13:00 Chloride 94 mmol/L (98-107) L 05/23/17 13:00 Carbon Dioxide 23 mmol/L (21-33) 05/23/17 13:00 Anion Gap 25 (10-20) H 05/23/17 13:00 BUN 82 mg/dL (7-21) H 05/23/17 13:00 Creatinine 14.0 mg/dl (0.8-1.5) H* D 05/23/17 13:00 Est GFR ( Amer) 4 05/23/17 13:00 Est GFR (Non-Af Amer) 4 05/23/17 13:00 Random Glucose 102 mg/dL (70-110) 05/23/17 13:00 Hemoglobin A1c 6.0 % (4.2-6.5) 05/22/17 05:45 Calcium 10.2 mg/dL (8.4-10.5) 05/23/17 13:00 Phosphorus 9.4 mg/dL (2.5-4.5) H 05/23/17 13:00 Magnesium 2.5 mg/dL (1.7-2.2) H 05/23/17 13:00 Total Bilirubin 0.4 mg/dL (0.2-1.3) 05/23/17 13:00 AST 19 U/L (17-59) 05/23/17 13:00 ALT 21 U/L (7-56) 05/23/17 13:00 Alkaline Phosphatase 61 U/L (38-126) 05/23/17 13:00 Lactate Dehydrogenase 430 U/L (333-699) 05/20/17 04:34 Total Creatine Kinase 86 U/L (35-230) 05/20/17 04:34 Troponin I 0.13 ng/mL H* 05/22/17 05:45 NT-Pro-B Natriuret Pep 95402 pg/mL (0-450) H 05/20/17 04:34 Total Protein 7.1 g/dL (5.8-8.3) 05/23/17 13:00 Albumin 4.1 g/dL (3.0-4.8) 05/23/17 13:00 Globulin 3.0 gm/dL 05/23/17 13:00 Albumin/Globulin Ratio 1.3 (1.1-1.8) 05/23/17 13:00 Triglycerides 54 mg/dL (35-160) 05/22/17 05:45 Cholesterol 112 mg/dL (130-200) L 05/22/17 05:45 LDL Cholesterol Direct 34 mg/dL (0-129) 05/22/17 05:45 HDL Cholesterol 42 mg/dL (29-60) 05/22/17 05:45 TSH 3rd Generation 1.12 mIU/mL (0.46-4.68) 05/22/17 05:45 - Hospital Course Hospital Course: 66 yr male w/ history of noncompliance, Afib, CHF, COPD, sleep apnea, ESRD (T-Th-S hemodialysis), chronic pain in L knee, & hernia. Pt admitted to [facility] for SOB. Pt needs to be complaint with Bipap q HS. Pt received back to back hemodialysis sessions and excess fluid removed. Pt went for stress test and was cleared per cardio recommendation. Pt is cleared for discharge home. Reviewed: stress test = LVEF 54%, heterogeneous activites are most likely due to soft tissue attenuation CXR = stable cardiomegaly. no definate pulmonary vascular congestion, no infiltrate, pleural effusion, or pneumothorax identified bilaterally ECG = ABNORMAL, Afib, nonspecific intraventricular block, T wave abnormality, consider lateral ischemia or digitalis effect - Date & Time of H&P Date of H&P: 05/24/17 Time of H&P: 11:30 Discharge Exam - Head Exam Head Exam: ATRAUMATIC, NORMAL INSPECTION, NORMOCEPHALIC - Eye Exam Eye Exam: EOMI, Normal appearance, PERRL Pupil Exam: NORMAL ACCOMODATION, PERRL - ENT Exam ENT Exam: Mucous Membranes Moist - Neck Exam Neck exam: Full Rom - Respiratory Exam Respiratory Exam: Clear to PA & Lateral, NORMAL BREATHING PATTERN, UNREMARKABLE - Cardiovascular Exam Cardiovascular Exam: +S1, +S2 - GI/Abdominal Exam GI & Abdominal Exam: Normal Bowel Sounds, Unremarkable - Extremities Exam Extremities exam: normal capillary refill, normal inspection Additional comments: L AV fistula - Neurological Exam Neurological exam: Alert, CN II-XII Intact, Normal Gait, Oriented x3, Reflexes Normal - Psychiatric Exam Psychiatric exam: Normal Affect, Normal Mood - Skin Skin Exam: Dry, Intact, Normal Color, Warm Discharge Plan - Follow Up Plan Condition: GUARDED Disposition: HOME/ ROUTINE Instructions: Heart Failure, Adult (DC), Hemodialysis (DC), Chest Pain (DC), End Stage Kidney Disease (DC), Pulmonary Edema (DC), Renal Failure Diet (DC) Referrals: Dione Tijerina MD [Primary Care Provider] - <Dione Tijerina - Last Filed: 05/25/17 09:00> Provider - Provider Date of Admission: 05/22/17 12:56 Attending physician: Dione Tijerina MD Primary care physician: Dione Tijerina MD Hospital Course - Lab Results Lab Results: Most Recent Lab Values WBC 6.4 10^3/ul (4.5-11.0) D 05/23/17 13:00 RBC 3.48 10^6/uL (3.5-6.1) L 05/23/17 13:00 Hgb 9.9 g/dL (14.0-18.0) L 05/23/17 13:00 Hct 31.6 % (42.0-52.0) L 05/23/17 13:00 MCV 90.8 fl (80.0-105.0) 05/23/17 13:00 MCH 28.4 pg (25.0-35.0) 05/23/17 13:00 MCHC 31.3 g/dl (31.0-37.0) 05/23/17 13:00 RDW 16.4 % (11.5-14.5) H 05/23/17 13:00 Plt Count 160 10^3/uL (120.0-450.0) 05/23/17 13:00 MPV 9.3 fl (7.0-11.0) 05/23/17 13:00 Gran % 76.8 % (50.0-68.0) H 05/23/17 13:00 Lymph % (Auto) 11.9 % (22.0-35.0) L 05/23/17 13:00 [place] % (Auto) 5.9 % (1.0-6.0) 05/23/17 13:00 Eos % (Auto) 5.2 % (1.5-5.0) H 05/23/17 13:00 Baso % (Auto) 0.2 % (0.0-3.0) 05/23/17 13:00 Gran # 4.92 (1.4-6.5) 05/23/17 13:00 Lymph # (Auto) 0.8 (1.2-3.4) L 05/23/17 13:00 [place] # (Auto) 0.4 (0.1-0.6) 05/23/17 13:00 Eos # (Auto) 0.3 (0.0-0.7) 05/23/17 13:00 Baso # (Auto) 0.01 K/mm3 (0.0-2.0) 05/23/17 13:00 Sodium 137 mmol/L (132-148) 05/23/17 13:00 Potassium 5.1 mmol/L (3.6-5.0) H 05/23/17 13:00 Chloride 94 mmol/L (98-107) L 05/23/17 13:00 Carbon Dioxide 23 mmol/L (21-33) 05/23/17 13:00 Anion Gap 25 (10-20) H 05/23/17 13:00 BUN 82 mg/dL (7-21) H 05/23/17 13:00 Creatinine 14.0 mg/dl (0.8-1.5) H* D 05/23/17 13:00 Est GFR ( Amer) 4 05/23/17 13:00 Est GFR (Non-Af Amer) 4 05/23/17 13:00 Random Glucose 102 mg/dL (70-110) 05/23/17 13:00 Hemoglobin A1c 6.0 % (4.2-6.5) 05/22/17 05:45 Calcium 10.2 mg/dL (8.4-10.5) 05/23/17 13:00 Phosphorus 9.4 mg/dL (2.5-4.5) H 05/23/17 13:00 Magnesium 2.5 mg/dL (1.7-2.2) H 05/23/17 13:00 Total Bilirubin 0.4 mg/dL (0.2-1.3) 05/23/17 13:00 AST 19 U/L (17-59) 05/23/17 13:00 ALT 21 U/L (7-56) 05/23/17 13:00 Alkaline Phosphatase 61 U/L (38-126) 05/23/17 13:00 Lactate Dehydrogenase 430 U/L (333-699) 05/20/17 04:34 Total Creatine Kinase 86 U/L (35-230) 05/20/17 04:34 Troponin I 0.13 ng/mL H* 05/22/17 05:45 NT-Pro-B Natriuret Pep 06794 pg/mL (0-450) H 05/20/17 04:34 Total Protein 7.1 g/dL (5.8-8.3) 05/23/17 13:00 Albumin 4.1 g/dL (3.0-4.8) 05/23/17 13:00 Globulin 3.0 gm/dL 05/23/17 13:00 Albumin/Globulin Ratio 1.3 (1.1-1.8) 05/23/17 13:00 Triglycerides 54 mg/dL (35-160) 05/22/17 05:45 Cholesterol 112 mg/dL (130-200) L 05/22/17 05:45 LDL Cholesterol Direct 34 mg/dL (0-129) 05/22/17 05:45 HDL Cholesterol 42 mg/dL (29-60) 05/22/17 05:45 TSH 3rd Generation 1.12 mIU/mL (0.46-4.68) 05/22/17 05:45 - Hospital Course Hospital Course: pt is seen and examined at bed side . looking comfortable , ready to go home , will f/u as out pt . meds pres, given
[2017-05-24 14:11] VITALS: BP 152/64; RESP 19; TEMP 98.7
--- NOTE | 2017-05-24 14:38 | PN ---
DATE: SUBJECTIVE: The patient has no complaints of any chest pain, no shortness of breath, no headaches and he states he feels well. PHYSICAL EXAMINATION VITAL SIGNS: Temperature is 97.8, pulse of 67, blood pressure is 114/59, respirations 18. GENERAL: The patient is lying in bed, flat, comfortable. HEENT: No oral lesion. Anicteric sclerae. Moist mucosa. NECK: No JVD, adenopathy, or thyromegaly. CARDIOVASCULAR: S1 and S2, regular. No murmurs, rubs, or gallops. LUNGS: Clear to auscultation bilaterally. No wheeze, rales, or rhonchi. ABDOMEN: Bowel sounds are positive. Soft, nontender and nondistended. EXTREMITIES: . Left arm fistula, good bruit and thrill. ASSESSMENT 1. End-stage renal disease, on hemodialysis. 2. Left arm fistula. 3. Anemia secondary to chronic kidney disease. 4. Secondary hyperparathyroidism. 5. Sleep apnea. 6. Nonadherence to his dialysis treatment. PLAN: The patient is currently comfortable. He had a stress test done yesterday that was normal. The patient has had normal wall motion of the left ventricle. The patient is currently comfortable, was fully dialyzed yesterday. He is on Eliquis for his atrial fibrillation. The patient is on Coreg. He is going to continue with Renagel for his secondary hyperparathyroidism. The patient is on lisinopril for his hypertension. He is on BiPAP. The patient is on a renal diet. He can be discharged from my perspective and continue from the Renal perspective and can be followed up as an outpatient to continue his dialysis treatment. He was also advised by a different dialysis unit by the end of April because he does not live locally and he is living in [place]. I did advise him that he is not able to find one on his own, then a unit close to his home will be given to him and his information will be transferred there. We will no longer be able to continue his dialysis. Erik Neff MD
--- NOTE | 2017-05-24 14:44 | PN ---
DATE: REASON FOR CONSULTATION AND FOLLOWUP: Cardiac evaluation, admitted with congestive heart failure, history of chronic atrial fibrillation, COPD, obesity, end-stage renal disease on dialysis. SUBJECTIVE: The patient denies any chest pain, shortness of breath, or any palpitations. OBJECTIVE: GENERAL: Not in apparent distress. VITAL SIGNS: Temperature afebrile, heart rate 62, blood pressure 114/59. HEENT: PERRLA. Extraocular muscles intact. NECK: Supple. No carotid bruit or thyromegaly. CHEST: Clear to auscultation. HEART: S1 and S2, regular. ABDOMEN: Soft. EXTREMITIES: Clubbing and cyanosis negative. IMPRESSION: The patient underwent a stress test yesterday that shows a normal myocardial perfusion study, ejection fraction 54%. History of cardiac catheterization [address] [facility] and it was told no significant blockage as well. History of end-stage renal disease on dialysis. The patient has a stressful situation at home, getting and he is drinking a lot of fluids and drinking alcohol as well and thus admitted. It was stated that there is a noncompliance, so admitted with decompensated congestive heart failure. In addition, the patient had last echo, ejection fraction 65%, right ventricular function is moderately reduced, right ventricle moderately dilated, severe aortic regurgitation, severe pulmonary hypertension, biatrial enlargement dated 03/01/2017, [id number] tricuspid regurgitation also, right ventricular systolic pressure of 112 consistent with severe pulmonary hypertension, severe aortic regurgitation. RECOMMENDATIONS: Continue aggressive medical treatment. on compliance with the medication and compliance with dialysis. The patient feels okay. Continue Coreg 3.125 mg daily. Continue lisinopril. Discussed with the patient. Since the patient stated he is not symptomatic and if he has other complaints, we will treat medically. May need later on valve surgery but the patient is high risk because of severe pulmonary hypertension. Continue aggressive dialysis and compliance with the medication. If the becomes symptomatic, consider for evaluation for the valve. The patient had a very bad experience for cardiac catheterization, got a cardiac arrest, almost 4 years ago, and does not want any invasive workup at this time. Also, the patient mentioned that he may need surgery for the hernia in future and wanted to know whether he can go for ventral hernia surgery. We will clear for the moderate to high risk for the ventral hernia surgery because of underlying comorbidities. We will discontinue telemetry. For now, we will treat the patient with aggressive medical treatment. Continue low dose of Coreg. Continue low dose of SOILA inhibitors to prevent remodelling of the ventricle. Thank you, Dr. Tijerina for providing us the opportunity in taking care of the patient, Shayan Tellez. Kathryn Corona MD
[2017-05-24] MEDS ORDERED: Lidocaine 5% Patch TD ONE (15:52)
--- NOTE | 2017-05-24 18:25 | PN ---
DATE: 05/24/2017 PULMONARY PROGRESS NOTE REFERRING PHYSICIAN: Dione Tijerina MD SUBJECTIVE: The patient is sitting up in chair. Night was unremarkable. Tolerated BiPAP well. Short of breath with exertion. No nausea, no vomiting, no diarrhea. No leg pain or leg swelling. OBJECTIVE GENERAL: In no acute distress. VITAL SIGNS: Temperature is 98, heart rate is 75, respiratory rate is 20, blood pressure 152/60, pulse ox is 98% on nasal cannula. HEENT: Moist mucous membrane. Crowded airway. NECK: Supple. No JVD. LUNGS: Fair airflow with rhonchi. HEART: S1, S2. ABDOMEN: Soft, nontender. No organomegaly. EXTREMITIES: There is no edema. NEUROLOGIC: Awake, alert. Follows simple command. MEDICATIONS: Reviewed and shows he is on DuoNeb every 3 hours p.r.n. and every 6 hours around the clock, Eliquis 2.5 mg twice a day, Pepcid 20 mg at bedtime, Renagel 800 mg with meals, Robitussin DM 5 mL every 4 hours p.r.n., Zestril 5 mg daily. LABORATORY DATA: No new lab is available since yesterday. IMPRESSION AND PLAN: Chronic obstructive lung disease, renal failure, dialysis dependent, atrial fibrillation, sleep apnea syndrome, obesity. Pulmonary point of view, doing well. Continue BiPAP while sleeping. Keep head at 45 degrees. Gastric prophylaxis, fall precaution. Outpatient pulmonary function test. Thank you and we will follow with you. Kathryn Soria MD
== END 2017-05-24 17:02 | disposition home or self-care (01) | DRG 291 ==
LOC: ED 04:03 → ERH 05:58 → 2RNO 08:53 → OBSVTOIN 05-22 12:56
PROVIDERS: ADMIT Internal Medicine; ATTEND Internal Medicine
PROC: 5A1D70Z Performance of Urinary Filtration, Intermittent, Less than 6 Hours Per Day (ICD-10-PCS; principal; 2017-05-20)
PROC: 5A09457 Assistance with Respiratory Ventilation, 24-96 Consecutive Hours, Continuous Positive Airway Pressure (ICD-10-PCS; 2017-05-20)
PROC: 3E0F7GC Introduction of Other Therapeutic Substance into Respiratory Tract, Via Natural or Artificial Opening (ICD-10-PCS; 2017-05-20)
PROC: 5A1D70Z Performance of Urinary Filtration, Intermittent, Less than 6 Hours Per Day (ICD-10-PCS; 2017-05-22)
PROC: 5A1D70Z Performance of Urinary Filtration, Intermittent, Less than 6 Hours Per Day (ICD-10-PCS; 2017-05-23)
DX: I13.2 Hypertensive heart and chronic kidney disease with heart failure and with stage 5 chronic kidney disease, or end stage renal disease (principal); I50.33 Acute on chronic diastolic (congestive) heart failure; N18.6 End stage renal disease; N25.81 Secondary hyperparathyroidism of renal origin; I27.20 Pulmonary hypertension, unspecified; J44.9 Chronic obstructive pulmonary disease, unspecified; Z99.2 Dependence on renal dialysis; G47.30 Sleep apnea, unspecified; I48.2 Chronic atrial fibrillation; Z79.01 Long term (current) use of anticoagulants; D63.1 Anemia in chronic kidney disease; I08.3 Combined rheumatic disorders of mitral, aortic and tricuspid valves; I25.10 Atherosclerotic heart disease of native coronary artery without angina pectoris; K21.9 Gastro-esophageal reflux disease without esophagitis; Z91.19 Patient's noncompliance with other medical treatment and regimen; E66.9 Obesity, unspecified; G89.29 Other chronic pain; M25.562 Pain in left knee; Z68.32 Body mass index [BMI] 32.0-32.9, adult; Z91.11 Patient's noncompliance with dietary regimen; Z87.891 Personal history of nicotine dependence

== ENCOUNTER 2017-06-12 10:19 | Emergency (ER) | payer MEDICARE, BC ==
[2017-06-12 10:20] VITALS: BMI 32.7
[2017-06-12] MEDS ORDERED: Albuterol-Ipratrop 3 mg / 0.5 (3 ml) UD IH STA (10:36)
--- NOTE | 2017-06-12 10:51 | ED PDOC ---
Arrival/HPI - General Chief Complaint: Shortness Of Breath Time Seen by Provider: 06/12/17 10:31 Historian: Patient - History of Present Illness Narrative History of Present Illness (Text): 06/12/17 10:40 66 year old male, whose PMH includes COPD, CHF, hypertension, and is on dialysis (Monday, , Monday), who presents to the emergency department requesting dialysis and states has mild shortness of breath. Patient is currently asymptomatic with no complaints. Time/Duration: Prior to Arrival Symptom Onset: Sudden Symptom Course: Unchanged Context: Home Past Medical History - Provider Review Nursing Documentation Reviewed: Yes - Past History Past History: Non-Contributing - Infectious Disease Hx of Infectious Diseases: None - Tetanus Immunization Tetanus Immunization: Unknown - Cardiac Hx Congestive Heart Failure: Yes Hx Hypertension: Yes - Pulmonary Hx Chronic Obstructive Pulmonary Disease (COPD): Yes - Neurological Hx Neurological Disorder: No - HEENT Hx HEENT Disorder: No - Renal Hx Dialysis: Yes (T, Th, Mon) Type of Dialysis Access: Left arm shunt - Endocrine/Metabolic Hx Endocrine Disorders: No - Hematological/Oncological Hx Blood Disorders: No - Integumentary Hx Dermatological Disorder: Yes (bilateral le edema +2,dusky,dry skin. non pitting.left forearm shunt) - Musculoskeletal/Rheumatological Hx Falls: No - Gastrointestinal Hx Gastrointestinal Disorders: Yes Hx Gastroesophageal Reflux: Yes - Genitourinary/Gynecological Hx Genitourinary Disorders: No - Psychiatric Hx Psychophysiologic Disorder: No Hx Substance Use: No - Surgical History Other/Comment: cystoscopy. L arm shunt for dialysis - Anesthesia Hx Anesthesia: Yes Hx Anesthesia Reactions: No Hx Malignant Hyperthermia: No Family/Social History - Physician Review Nursing Documentation Reviewed: Yes Family/Social History: Unknown Family HX Smoking Status: Former Smoker Hx Alcohol Use: No Hx Substance Use: No Allergies/Home Meds Allergies/Adverse Reactions: Allergies No Known Allergies Allergy (Verified 06/12/17 10:31) Home Medications: Home Meds Medication Instructions Recorded Confirmed Unobtainable 06/12/17 06/12/17 Review of Systems - Physician Review All systems were reviewed & negative as marked: Yes - Review of Systems Constitutional: Other (requesting dialysis ) Respiratory: SOB (mild) Cardiovascular: absent: Chest Pain Gastrointestinal: absent: Abdominal Pain Physical Exam Vital Signs Reviewed: Yes Vital Signs Temp Pulse Resp BP Pulse Ox 06/12/17 12:23 66 16 124/92 H 100 06/12/17 11:01 18 94 L 06/12/17 10:27 98.2 F 66 18 147/63 94 L Temperature: Afebrile Blood Pressure: Normal Pulse: Regular Respiratory Rate: Normal Appearance: Positive for: Well-Appearing, Non-Toxic, Comfortable Pain Distress: None Mental Status: Positive for: Alert and Oriented X 3 - Systems Exam Head: Present: Atraumatic, Normocephalic Pupils: Present: PERRL Extroacular Muscles: Present: EOMI Conjunctiva: Present: Normal Respiratory/Chest: Present: Good Air Exchange, Other (crackles at the bases ). No: Clear to Auscultation, Respiratory Distress, Accessory Muscle Use Cardiovascular: Present: Regular Rate and Rhythm, Normal S1, S2. No: Murmurs Lower Extremity: Present: Normal Inspection, NORMAL PULSES, Normal ROM, Neurovascularly Intact, Capillary Refill < 2 s. No: Edema, Cyanosis, Tenderness , Swelling, Erythema, Deformity Neurological: Present: GCS=15, CN II-XII Intact, Speech Normal Skin: Present: Warm, Dry, Normal Color. No: Rashes Psychiatric: Present: Alert, Oriented x 3, Normal Insight, Normal Concentration Medical Decision Making ED Course and Treatment: 06/12/17 Impression: 66 year old male with crackles at the bases on exam, complaining of mild shortness of breath and requesting dialysis Plan: -- EKG -- Chest X-ray -- Duoneb -- Reassess and disposition Progress Notes: EKG: Ordered, reviewed, and independently interpreted the EKG. Rate : 72 BPM Rhythm : atrial fibrillation Interpretation : No ST-segment elevations or depressions, no T-wave inversions, normal intervals. Comparison : No previous EKG for comparison. 06/12/17 16:46 pt with known non complaince with diet and hd. pt requesting addional hd and then dc home, refuses lab eval. pt later returns from hd, "feeling much better" . - RAD Interpretation Radiology Orders: 06/12/17 10:36 CXR [CHEST PORTABLE] [RAD] Stat Wood Drill Operator: Radiologist - EKG Interpretation Interpreted by ED Physician: Yes Type: 12 lead EKG - Medication Orders Current Medication Orders: Discontinued Medications Albuterol/Ipratropium (Duoneb 3 Mg/0.5 Mg (3 Ml) Ud) 3 ml IH STAT STA Stop: 06/12/17 10:37 Last Admin: 06/12/17 10:57 Dose: 3 ml - Scribe Statement The provider has reviewed the documentation as recorded by the John Blake Provider Scribe Attestation: All medical record entries made by the Scribe were at my direction and personally dictated by me. I have reviewed the chart and agree that the record accurately reflects my personal performance of the history, physical exam, medical decision making, and the department course for this patient. I have also personally directed, reviewed, and agree with the discharge instructions and disposition. Disposition/Present on Arrival - Present on Arrival Any Indicators Present on Arrival: No History of DVT/PE: No History of Uncontrolled Diabetes: No Urinary Catheter: No History of Decub. Ulcer: No History Surgical Site Infection Following: None - Disposition Have Diagnosis and Disposition been Completed?: Yes Diagnosis: Fluid overload Disposition: HOME/ ROUTINE Disposition Time: 16:47 Condition: STABLE Forms: [employer] ([place])
--- NOTE | 2017-06-12 11:09 | RAD ---
HISTORY: sob COMPARISON: 05/20/2017. FINDINGS: LUNGS: The lungs are well inflated and clear. PLEURA: No significant pleural effusion identified, no pneumothorax apparent. CARDIOVASCULAR: There is persistent severe cardiomegaly. OSSEOUS STRUCTURES: No significant abnormalities. VISUALIZED UPPER ABDOMEN: Normal. OTHER FINDINGS: None. IMPRESSION: No active pulmonary disease. Severe persistent cardiomegaly.
[2017-06-12 16:56] VITALS: O2SAT 96
[2017-06-12 18:38] VITALS: BP 126/66; PULSE 77; RESP 18; TEMP 98.1
--- NOTE | 2017-06-12 20:26 | CARD ---
APPROVED REPORT EKG Measurement Heart [id number] <Conclusion> Poor data quality, interpretation may be adversely affected Atrial fibrillation Incomplete left bundle branch block T wave abnormality, consider lateral ischemia or digitalis effect Prolonged QT Abnormal ECG
== END 2017-06-12 18:40 | disposition home or self-care (01) ==
LOC: ED 10:19
DX: E87.70 Fluid overload, unspecified (principal); Z87.891 Personal history of nicotine dependence; J44.9 Chronic obstructive pulmonary disease, unspecified; Z99.2 Dependence on renal dialysis; I10 Essential (primary) hypertension; I50.9 Heart failure, unspecified
CPT/HCPCS: 71045; 93005; 99284; G0257

== ENCOUNTER 2017-07-17 23:54 | Inpatient (IN) | payer MEDICARE, BC ==
--- NOTE | 2017-07-18 00:54 | ED PDOC ---
Arrival/HPI - General Chief Complaint: Shortness Of Breath Time Seen by Provider: 07/18/17 00:32 - History of Present Illness Narrative History of Present Illness (Text): 07/18/17 00:34 66 year old male, whose past medical history includes COPD, CHF, Hypertension ESRD on dialysis (Monday, , Monday), presents to the emergency department for evaluation s/p near-syncope episode while driving associated with shortness of breath. Patient states he takes 2L of oxygen at night when needed for his shortness of breath symptoms. Patient also reports chronic bilateral knee pain, but denies any fever, chills, chest pain, abdominal pain, nausea, vomiting, diarrhea, urinary symptoms, back pain, neck pain, headache, dizziness, or any other complaints. Past PMD: Dr. Tijerina Past Medical History - Provider Review Nursing Documentation Reviewed: Yes - Past History Past History: Non-Contributing - Infectious Disease Hx of Infectious Diseases: None - Tetanus Immunization Tetanus Immunization: Unknown - Cardiac Hx Congestive Heart Failure: Yes Hx Hypertension: Yes - Pulmonary Hx Chronic Obstructive Pulmonary Disease (COPD): Yes - Neurological Hx Neurological Disorder: No - HEENT Hx HEENT Disorder: No - Renal Hx Dialysis: Yes (T, Th, Mon) - Endocrine/Metabolic Hx Endocrine Disorders: No - Hematological/Oncological Hx Blood Disorders: No - Integumentary Hx Dermatological Disorder: Yes (bilateral le edema +2,dusky,dry skin. non pitting.left forearm shunt) - Musculoskeletal/Rheumatological Hx Falls: No - Gastrointestinal Hx Gastrointestinal Disorders: Yes Hx Gastroesophageal Reflux: Yes - Genitourinary/Gynecological Hx Genitourinary Disorders: No - Psychiatric Hx Psychophysiologic Disorder: No Hx Substance Use: No - Surgical History Other/Comment: cystoscopy. L arm shunt for dialysis - Anesthesia Hx Anesthesia: Yes Hx Anesthesia Reactions: No Hx Malignant Hyperthermia: No Family/Social History - Physician Review Nursing Documentation Reviewed: Yes Family/Social History: No Known Family HX Smoking Status: Former Smoker Hx Alcohol Use: No Hx Substance Use: No Allergies/Home Meds Allergies/Adverse Reactions: Allergies No Known Allergies Allergy (Verified 06/12/17 10:31) Home Medications: Home Meds Medication Instructions Recorded Confirmed Unobtainable 06/12/17 07/18/17 Review of Systems - Physician Review All systems were reviewed & negative as marked: Yes - Review of Systems Constitutional: absent: Fevers Cardiovascular: absent: Chest Pain Physical Exam - Physical Exam Narrative Physical Exam (Text): Constitutional: No acute distress. Head: Normocephalic. Atraumatic. Eyes: PERRL. ENT: Moist mucous membranes. Neck: Supple. Cardiovascular: Regular rate. Chest: No tenderness. Respiratory: Clear to auscultation bilaterally. Pulse oximetry on room air is 92% GI: Soft. Nontender. Nondistended. Back: No CVA tenderness. Musculoskeletal: No tenderness of extremities. Bilateral Pitting Edema. Skin: No rash. Neurologic: Alert, no focal deficit. Vital Signs Temp Pulse Resp BP Pulse Ox 07/18/17 02:28 80 18 122/64 96 07/18/17 00:18 24 07/17/17 23:55 97.8 F 72 24 118/52 L 97 Medical Decision Making ED Course and Treatment: 07/18/17 00:56 Impression: 66 year old male presents complaining of a near syncope episode associated with shortness of breath. Patient also reports chronic bilateral knee pain. Plan: -- ABG -- Labs -- Chest X-Ray -- Toradol -- Knees bilateral x-ray -- EKG -- CT angio PE protocol -- Reassess and disposition Prior Visits: Notes and results from previous visits were reviewed. On 06/12/17 patient came in complaining of shortness of breath. Patient was discharged. Progress Notes: EKG: Ordered, reviewed, and independently interpreted the EKG. Rate : 75 BPM Rhythm : A-FIB Interpretation : No ST-segment elevations. Comparison : No previous EKG for comparison. 07/18/17 02:40 CXR Impression: As read by me, cardiomegaly. 07/18/17 03:59 Knee bilateral X-ray Impression: As read by me, no fractures EXAM: CT Angiography Chest With Intravenous Contrast Dictated and Authenticated by: Edith Singer MD 07/18/2017 5:48 AM IMPRESSION: No pulmonary embolism. Prominent heart with no pulmonary edema. Small right pleural calcifications which may be sequela of asbestos exposure or prior infection or other inflammation. 07/18/17 06:[address] Tijerina who is aware and agrees with the plan. Accepts patient into her service. - Lab Interpretations Lab Results: 07/18/17 00:55 07/18/17 00:55 Lab Results 07/18/17 02:27: pCO2 32 L, pO2 61.0 L, HCO3 19.4 L, ABG pH 7.39, ABG Total CO2 20.4 L, ABG O2 Saturation 94.3 L, ABG O2 Content 12.3 L, ABG Base Excess -4.9 L , ABG Hemoglobin 9.5 L, ABG Carboxyhemoglobin 2.1 H, POC ABG HHb (Measured) 5.6 H, ABG Methemoglobin 0.3, ABG O2 Capacity 13.0 L, Hgb O2 Saturation 91.9 L, FiO2 21.0 07/18/17 01:58: D-Dimer, Quantitative 331 H 07/18/17 00:55: Sodium 146, Potassium 5.1 H, Chloride 104, Carbon Dioxide 20 L, Anion Gap 27 H, BUN 72 H, Creatinine 13.8 H*, Est GFR ( Amer) 4, Est GFR (Non-Af Amer) 4, Random Glucose 77, Calcium 9.9, Total Bilirubin 0.4, AST 31, ALT 28, Alkaline Phosphatase 64, Total Creatine Kinase 122, Troponin I 0.11, NT- Pro-B Natriuret Pep 59956 H, Total Protein 7.2, Albumin 4.2, Globulin 3.1, Albumin/Globulin Ratio 1.4 07/18/17 00:55: WBC 7.9 D, RBC 3.34 L, Hgb 9.6 L, Hct 30.0 L, MCV 89.8, MCH 28.7, MCHC 32.0, RDW 16.7 H, Plt Count 226, MPV 9.5, Gran % 74.5 H, Lymph % ( Auto) 10.8 L, [place] % (Auto) 9.7 H, Eos % (Auto) 4.6, Baso % (Auto) 0.4, Gran # 5.87, Lymph # (Auto) 0.9 L, [place] # (Auto) 0.8 H, Eos # (Auto) 0.4, Baso # (Auto ) 0.03 I have reviewed the lab results: Yes - RAD Interpretation Radiology Orders: 07/18/17 00:35 CHEST PORTABLE [RAD] Stat 07/18/17 00:37 KNEES BILATERAL [RAD] Stat 07/18/17 02:24 ANGIO CHEST PE PROTOCOL [CT] Stat - EKG Interpretation Interpreted by ED Physician: Yes Type: 12 lead EKG - Medication Orders Current Medication Orders: Discontinued Medications Ketorolac Tromethamine (Toradol) 30 mg IVP STAT STA Stop: 07/18/17 00:37 Last Admin: 07/18/17 00:53 Dose: 30 mg MAR Pain Assessment Document 07/18/17 00:53 KIARA (Rec: 07/18/17 00:56 KIARA [id number]) Pain Reassessment Is this a pain reassessment? No IVP Administration Document 07/18/17 00:53 KIARA (Rec: 07/18/17 00:56 KIARA [id number]) Charges for Administration # of IVP Administrations 1 - Scribe Statement The provider has reviewed the documentation as recorded by the John Rhoades Provider Scribe Attestation: All medical record entries made by the Scribe were at my direction and personally dictated by me. I have reviewed the chart and agree that the record accurately reflects my personal performance of the history, physical exam, medical decision making, and the department course for this patient. I have also personally directed, reviewed, and agree with the discharge instructions and disposition. Disposition/Present on Arrival - Present on Arrival Any Indicators Present on Arrival: No History of DVT/PE: No History of Uncontrolled Diabetes: No Urinary Catheter: No History of Decub. Ulcer: No History Surgical Site Infection Following: None - Disposition Have Diagnosis and Disposition been Completed?: Yes Diagnosis: Near syncope, CHF exacerbation Disposition: HOSPITALIZED Disposition Time: 05:56 Patient Plan: Admission, Telemetry Condition: GUARDED Discharge Instructions (ExitCare): Heart Failure (ED) Forms: [employer] ([place]ian)
[2017-07-18 01:16] LABS: BASO # 0.03 K/mm3 (0.0-2.0); BASO % 0.4 % (0.0-3.0); EOS # 0.4 (0.0-0.7); EOS % 4.6 % (1.5-5.0); GRAN # 5.87 (1.4-6.5); GRAN % 74.5 % (50.0-68.0); HEMOGLOBIN 9.6 g/dL (14.0-18.0); LYMPH # 0.9 (1.2-3.4); LYMPH % 10.8 % (22.0-35.0); MEAN CELL VOLUME 89.8 fl (80.0-105.0); MEAN CORPUSCULAR HEMOGLOBIN 28.7 pg (25.0-35.0); MEAN PLATELET VOLUME 9.5 fl (7.0-11.0); MONO # 0.8 (0.1-0.6); MONO % 9.7 % (1.0-6.0); RBC 3.34 10^6/uL (3.5-6.1); RED CELL DISTRIBUTION WIDTH 16.7 % (11.5-14.5); WHITE BLOOD COUNT 7.9 10^3/ul (4.5-11.0)
[2017-07-18 01:32] LABS: TROPONIN I 0.11 ng/mL
[2017-07-18 01:34] LABS: ALB/GLOB RATIO 1.4 (1.1-1.8); ALBUMIN 4.2 g/dL (3.0-4.8); CALCIUM 9.9 mg/dL (8.4-10.5)
[2017-07-18 02:30] LABS: ARTERIAL BLOOD GAS HCO3 19.4 mmol/L (21-28); ARTERIAL BLOOD GAS HEMOGLOBIN 9.5 g/dL (11.7-17.4); ARTERIAL BLOOD GAS O2 CONTENT 12.3 ML/dl (15-23); ARTERIAL BLOOD GAS O2 SAT 94.3 % (95-98); ARTERIAL BLOOD GAS PCO2 32 mm/Hg (35-45); ARTERIAL BLOOD GAS PH 7.39 (7.35-7.45); ARTERIAL BLOOD GAS TCO2 20.4 mmol.L (22-28)
[2017-07-18] MEDS ORDERED: Iohexol 350 MG/100 ML VIAL ONE (02:53)
[2017-07-18] MEDS ORDERED: Iodixanol 320 MG/ML 100 ML BOTTLE IV ONE (02:57)
--- NOTE | 2017-07-18 08:16 | CT ---
PROCEDURE: CT Chest with contrast (Pulmonary Angiogram) HISTORY: dyspnea COMPARISON: Chest x-ray portable 07/18/2017 at 1:40 a.m. TECHNIQUE: Axial computed tomography images were obtained of the chest in the pulmonary arterial phase of enhancement. Coronal and sagittal reformatted images were created and reviewed. Intravenous contrast dose: 100 mL of Visipaque 3 to Radiation dose: Total exam DLP = 573 mGy-cm. This CT exam was performed using one or more of the following dose reduction techniques: Automated exposure control, adjustment of the mA and/or kV according to patient size, and/or use of iterative reconstruction technique. Technologist is noted that a 24 gauge is the biggest IV the patient is also scheduled to have dialysis on 07/18/2017 FINDINGS: PULMONARY ARTERIES: Delayed Main pulmonary artery caliber is prominent 4.3 cm is larger than the ascending aorta at 3.8 cm. Pulmonary arterial hypertension is a consideration AORTA: No acute findings. No thoracic aortic aneurysm. LUNGS: Uneven bilateral pulmonary areas of decreased attenuation -consistent mosaicism ; can be seen with uneven profusion -ventilation and/or air trapping. No nodule, mass or pulmonary consolidation. PLEURAL SPACES: Posterior inferior right pleural thin calcification -prior asbestosis exposure-possible. No effusion or pneuomothorax. HEART: Cardiomegaly. No significant pericardial effusion. . Short segmental coronary artery calcifications noted LYMPH NODES: Multiple mediastinal lymph nodes. Number appears greater than that typically seen. Their short axis however are not the significantly increased approximately 1 cm. Findings are nonspecific and clinical correlation is needed with past medical history 1.4 x 0.6 cm right retrocrural node is also noted BONES, CHEST WALL: Mild -moderate thoracic spondylosis No fracture or destructive lesion OTHER FINDINGS: Unremarkable. IMPRESSION: No pulmonary embolus. Prominent main pulmonary arterial caliber -pulmonary arterial hypertension -a consideration. No aortic aneurysm or dissection. Mosaicism -pulmonary parenchyma -can be seen with uneven profusion-ventilation and/or air trapping Posterior inferior right calcified pleural plaque -can be seen with prior asbestosis exposure Additional results to the preliminary interpretation) provided by [facility]. Namely prominent main pulmonary arterial caliber and pulmonary mosaicism.
--- NOTE | 2017-07-18 08:26 | RAD ---
PROCEDURE: Bilateral Knee Radiographs. HISTORY: knee pain COMPARISON: Left knee 02/28/2017 FINDINGS: BONES: Right Knee: No fracture. Moderate-severe Medial femoral tibial osteoarthrosis. Quadriceps insertional enthesophyte Left Knee: No fracture progressively severe medial femoral tibial osteoarthrosis Anterior tibial tuberosity well corticated ossifications-residual [place]-Schlatter's Quadriceps insertional enthesophyte JOINTS: Right Knee: Arthrosis Left knee: Arthrosis SOFT TISSUES: Right Knee: Normal. Left Knee: Posterior medial soft tissue calcification/ossification more of this portion of the lower extremities included the current study. Some soft tissue calcification ossification likely present previously JOINT EFFUSION: Right Knee: Present Left Knee: Present OTHER FINDINGS: None. IMPRESSION: No acute fracture Bilateral osteoarthrosis multi compartmental -the left knee is more severely affected specially the medial femoral tibial compartment since 02/28/2017 this osteoarthrosis has progressed. Patellofemoral osteoarthrosis also inferred. Each knee is in varus Other findings as above
--- NOTE | 2017-07-18 08:37 | RAD ---
HISTORY: dyspnea COMPARISON: 06/12/2017 FINDINGS: LUNGS: Pulmonary venous congestion suspect. The exam is limited due to portable technique and large body habitus summation of soft tissues versus right pleural-based lateral mid lung zone pathology consideration. Please note the subsequent CT pulmonary angio study PLEURA: no pneumothorax apparent. Small right pleural Effusion possible CARDIOVASCULAR: Marked cardiomegaly-similar OSSEOUS STRUCTURES: No significant abnormalities. VISUALIZED UPPER ABDOMEN: Normal. OTHER FINDINGS: None. IMPRESSION: Marked cardiomegaly-similar Pulmonary venous congestion suspect semi possibly chronic Summation of soft tissues versus lateral right mid lung zone pleural parenchymal pathology - please see same-day CT pulmonary angio report
[2017-07-18 08:55] VITALS: BMI 33.6
--- NOTE | 2017-07-18 10:30 | CARD ---
APPROVED REPORT EKG Measurement Heart [id number] <Conclusion> Atrial fibrillation Nonspecific intraventricular conduction delay Abnormal QRS-T angle, consider primary T wave abnormality Abnormal ECG
--- NOTE | 2017-07-18 10:33 | CARD ---
APPROVED REPORT EKG Measurement Heart [id number] <Conclusion> Atrial fibrillation Nonspecific intraventricular conduction delay Nonspecific T wave abnormality, probably digitalis effect Abnormal ECG
[2017-07-18] MEDS ORDERED: Darbepoetin Alfa 60 mcg/ml Inj IV ONE (12:32)
[2017-07-18 13:07] LABS: IRON 39 ug/dL (45-180)
[2017-07-18 13:16] LABS: % IRON SATURATION 15 % (20-55); TOTAL IRON BINDING CAPACITY 257 ug/dL (261-462)
--- NOTE | 2017-07-18 13:56 | CON ---
DATE: 07/18/[address] patient admitted for Dr. Tijerina. REFERRING PHYSICIAN: Dione Tijerina MD. REASON FOR CONSULTATION: To provide dialysis for a patient admitted with increasing shortness of breath and near syncope. The patient is a chronic dialysis patient who currently dialyzes up in [place], [place] but returns to the [facility] to visit family. His past supervisor net making was Dr. Neff. HISTORY OF PRESENT ILLNESS: The patient is a 66-year-old black male with a history of end-stage renal disease, on chronic maintenance hemodialysis Monday, , Monday; history of atrial fibrillation; history of valvular heart disease with significant aortic insufficiency and tricuspid regurgitation. Ejection fraction of 60%-65%, history of severe pulmonary hypertension. History of secondary hyperparathyroidism, history of anemia, history of JAYNE, history of COPD. The patient states that he was visiting his daughter in the [facility], became short of breath and presented to the hospital for admission. He is currently seen receiving dialysis. We are targeting 3000 mL off. We are asked to evaluate the patient to provide dialysis services. The patient states that he needs to have a full cardiac workup because he believes that his heart valve disease is responsible for his increasing shortness of breath. PAST MEDICAL HISTORY: Significant for end-stage renal disease, on chronic maintenance hemodialysis; history of atrial fibrillation; history of hypertension; history of COPD; history of JAYNE; history of secondary hyperparathyroidism; history of anemia; history of valvular heart disease, AI/TR/MR with severe pulmonary hypertension. MEDICATIONS AT HOME: Unobtainable. ALLERGIES: THE PATIENT HAS NO KNOWN ALLERGIES. CURRENT MEDICATIONS: In hospital, include that of Coreg, Ecotrin, and Zestril. SOCIAL HISTORY: The patient was a former cigarette smoker. Currently, he does not use tobacco. No alcohol. FAMILY HISTORY: Positive for hypertension in his mother. Father is unknown. REVIEW OF SYSTEMS: GENERAL: The patient states appetite and weight have been stable. ENT: Denies any hearing or visual problems. PULMONARY: Increased shortness of breath as noted above. CARDIAC: History of valvular heart disease as noted above. GASTROINTESTINAL: Mild constipation. No nausea, vomiting, diarrhea, or abdominal pain. GENITOURINARY: History of end-stage renal disease. ENDOCRINE: No history of diabetes, history of secondary hyperparathyroidism. MUSCULOSKELETAL: No complaints other than that of mild knee pain. NEUROLOGIC: No history of TIA, seizures, or syncope. No history of stroke. HEMATOLOGIC-ONCOLOGIC: History of anemia secondary to chronic kidney disease. PSYCHIATRIC: History is negative. PHYSICAL EXAMINATION: GENERAL: The patient is currently seen in dialysis. VITAL SIGNS: Present blood pressure is 104/67. Heart rate is 76 and irregular. Respiratory rate is 20. Temperature is 98. Pulse ox is 98% on 3 liters nasal cannula. HEENT: Shows him to be normocephalic, atraumatic. Conjunctivae are pale. Sclerae nonicteric. Pupils equal and reactive to light and accommodation. Extraocular muscles are intact. Posterior pharynx is normal. NECK: Supple. No neck vein distention or thyromegaly. No lymphadenopathy. CHEST: Slight decreased breath sounds at the bases. No rales, rhonchi, or wheezing. CARDIOVASCULAR: Shows no S3, no S4, no rub. Positive AI. Positive TR. Positive MR. Distal lower extremity pulses are 1+ bilaterally. ABDOMEN: Obese. Bowel sounds normal. No rebound, guarding, or masses. BACK: No CVAT. No spinal tenderness. EXTREMITIES: Show a left upper extremity AV fistula cannulated for dialysis. Trace nonpitting lower extremity edema. No cyanosis or clubbing. NEUROLOGIC: Shows him to be alert, oriented x3 with no gross focal motor or sensory deficits noted. LABORATORY DATA AND IMAGING: Admitting chest x-ray shows pulmonary vascular congestion. Admitting chest CT shows no evidence for pulmonary embolism. CBC: White blood cell count is 7.9 with a hemoglobin of 9.6, platelet count is 226,000. D-dimer is 331. Admitting blood gas: pH 7.39, pO2 of 61 with a pCO2 of 32. Admitting chemistries showed a sodium of 146, potassium 5.1, CO2 of 20, BUN is 72 with a creatinine of 13.8. Hemoglobin A1c levels earlier this year were normal at 6%. Calcium was 9.9. Phosphorus level is pending. Magnesium level is pending. Liver enzymes are normal. Troponin levels 0.11 with a BNP of 28,800. Albumin is 4.2. Microbiology, no cultures available for comment. ASSESSMENT: 1. Increased soreness of breath in the setting of severe pulmonary hypertension, severe valvular heart disease, aortic insufficiency, tricuspid regurgitation. This episode of shortness of breath was associated with a near syncopal episode. Hence, the patient comes to the hospital for evaluation. He is receiving his routine dialysis today. The patient states that he will be seen by pulmonary and cardiology. He states that he believes that his shortness of breath is related to worsening heart valve disease. 2. End-stage renal disease. The patient will continue Monday, , Monday dialysis. The patient is borderline hypotensive, we are attempting to remove 3 kg of fluid. 3. History of atrial fibrillation, history of aortic insufficiency, tricuspid regurgitation, mitral regurgitation with ejection fraction of 60%-65%. Again, the patient being evaluated by cardiology. 4. History of anemia secondary to chronic kidney disease. The patient will receive Aranesp on dialysis. We will check his iron levels and the patient will receive IV iron per protocol if he is iron deficient. 5. History of secondary hyperparathyroidism. The patient had been on binder therapy in the past. Past phosphorus levels had been elevated. If phosphorus level is elevated, the patient will be restarted back on binder therapy. 6. History of severe pulmonary hypertension, pulmonary consult in progress. The patient will be seen and perhaps medication to be used to decrease pulmonary artery pressures. 7. History of obstructive sleep apnea. 8. Past history of hepatitis C. 9. History of chronic obstructive pulmonary disease. PLAN: 1. Agree with pulmonary and cardiology consult. 2. Perhaps more extensive evaluation of his valvular heart disease and pulmonary hypertension as these are probably responsible for his increased shortness of breath and presentation to the hospital. 3. Check phosphorus level and start binder therapy. 4. Continue renal diet. 5. Cardiology to decide on appropriate therapy for his atrial fibrillation. 6. Follow complete labs with each dialysis treatment. Thank you for letting me partake and share in the care of your patient. Manish Beckham MD
--- NOTE | 2017-07-18 20:26 | CON ---
DATE: 07/18/2017 REASON FOR CONSULTATION: Followup shortness of breath, history of chronic atrial fibrillation, COPD, pulmonary hypertension, endstage renal disease, on dialysis, noncompliance with the medications. BRIEF CLINICAL HISTORY: This is a 66-year-old morbidly obese male, body mass index of 34 kg/m2, noncompliance with the medications, endstage renal disease, on dialysis, on home oxygen, COPD, obstructive sleep apnea, history of ex-tobacco abuse, who states that he was taking a lot of cold cut and salami with his friends, and got short of breath and he felt dizzy and came to the emergency room. He denies any chest pain. He denies any palpitations. PAST MEDICAL HISTORY: Significant for renal failure, on dialysis; endstage renal disease, on dialysis; congestive heart failure, atrial fibrillation, COPD, sleep apnea, shunt in the left arm, and history of obstructive sleep apnea, history of home oxygen and BiPAP, history of chronic atrial fibrillation. PERSONAL HISTORY: Smoked 3 pack a day but stopped 40 years ago. He used to drink heavy and stated he stopped 40 years ago. Also used illicit drugs but claims that he used 40 years ago. ALLERGIES: PATIENT HAS NO KNOWN DRUG ALLERGIES, Past history is also significant for severe pulmonary hypertension secondary to COPD from heavy smoking in the past, history of chronic atrial fibrillation as mentioned. Previous cardiac workup as follows, patient had recently stress test myocardial perfusion study dated 05/23/2017. That is a Lexiscan that shows normal wall motion abnormality, ejection fraction 54%, heterogenous activity like soft tissue attenuation, normal gated wall motion. Patient had echocardiography on 03/01/2017 that showed ejection fraction of 65%, right ventricle moderately dilated, systolic function [id number] reduced, severe aortic regurgitation, moderate to severe mitral regurgitation, moderate to severe tricuspid regurgitation, right ventricular systolic pressure of 112 consistent with severe pulmonary hypertension. History of atrial fibrillation and patient was in atrial fibrillation at the time of the echo. EKG previous also dated 02/28/2017, patient was in AFib. History of cardiac catheterization 4 years ago at [facility], and he was told there is no significant blockage. During the catheterization, the patient stated he was alert and awake, and having pain; so asked more pain medications cardiac arrest, was resuscitated. REVIEW OF SYSTEMS: As per HPI. CURRENT MEDICATIONS: The patient at home taking medicine, but unknown; reasons as per HPI. PHYSICAL EXAMINATION: VITAL SIGNS: Temperature afebrile, heart rate 75, blood pressure 114/75. HEENT: PERRLA. Extraocular muscles intact. NECK: Supple. No carotid bruit. No thyromegaly. CHEST: Clear to auscultation. HEART: S1 and S2 regular. ABDOMEN: Soft. EXTREMITIES: Clubbing and cyanosis negative LABORATORY DATA: EKG shows AFib, at a rate of 75. Blood workup as follows, WBC 7.9, hemoglobin 9.6, hematocrit 30, platelet count 226. Chemistry shows sodium 146, potassium 5.1, chloride 104, carbon dioxide 20, anion gap of 27, BUN is 72, creatinine is 13.8. BNP 28,800. Troponin 0.11. IMPRESSION: Shortness of breath, dizziness, morbid obesity, diabetic, hemoglobin A1c less than 6, chronic obstructive pulmonary disease, history of chronic atrial fibrillation, history of congestive heart failure, endstage renal disease, on dialysis, severe aortic regurgitation, moderate to severe mitral regurgitation, moderate to severe tricuspid regurgitation, severe pulmonary hypertension secondary to extensive history of chronic obstructive pulmonary disease secondary to history of smoking, dilated right ventricle; recent CT angiogram is negative for pulmonary embolism, but positive for pulmonary arterial hypertension and nonspecific lymphadenopathy. This shortness of breath is multifactorial. No history of syncope. No severe chest pain. Borderline troponin due mainly secondary to endstage renal disease. This shortness of breath is multifactorial secondary to obesity, secondary to noncompliance. The patient states that he used salami and cold cut with high salt diet in between the dialysis because of his stressful situation at home and he is having a divorce, so he is stressed out and goes out with friends and ate cold cut and salami when he is not supposed to take high salt diet. Also the patient has severe mitral regurgitation, severe aortic regurgitation as well as severe pulmonary hypertension. Discussed with the patient that patient needs to reduce the weight, compliance with the medications, compliance with the diet, and if still feels short of breath, consider cardiac catheterization as a step for open heart surgery for aortic and mitral valve replacement, but the patient is not willing because, in the past, the patient had an experience of cardiac arrest during the cardiac catheterization when he was asking more and more sedative medication; so wanted to hold it off, cardiac catheterization and open heart surgery evaluation. We will try and treat medically, aggressive dialysis, and compliance with the medications. We will follow with you. Even if the patient agrees for surgery, it will be very high risk because of underlying comorbidity including severe pulmonary hypertension, end-stage renal disease, obstructive sleep apnea, on home oxygen. In the interim, we will add low dose of Coreg and SOILA inhibitor. . We will get lipid profile, TSH, hemoglobin A1c in the morning. Thank you Dr. Tijerina for providing us the opportunity in taking care of the patient Shayan Tellez. Kathryn Corona MD
[2017-07-18] MEDS: POLYETHYLENE GLYCOL 3350 17 GM/Dose PACKET PO SCH (20:56)
--- NOTE | 2017-07-19 02:58 | CON ---
DATE: 07/18/2017 PULMONARY PROGRESS NOTE REFERRING PHYSICIAN: Dione Tijerina MD. REASON FOR CONSULT: Chronic obstructive lung disease, sleep apnea syndrome. HISTORY OF PRESENT ILLNESS: This is a 66-year-old gentleman, well known to me from previous admission, has multiple medical issues including renal failure, dialysis dependent, cardiomyopathy, atrial fibrillation, chronic obstructive lung disease, sleep apnea syndrome. Apparently was having near syncopal episode, comes into emergency room, short of breath with minimal exertion. According to the patient, he had been compliant with the CPAP as outpatient. No hemoptysis, no hematemesis, no hematuria. Does have a leg swelling. PAST MEDICAL HISTORY: As per history of present illness. SOCIAL HISTORY: Ex-smoker. Denies any alcohol use. ALLERGIES: NONE KNOWN. FAMILY HISTORY: No significant cardiopulmonary disease reported. MEDICATIONS: He is on Coreg 3.125 mg twice a day, Ecotrin 81 mg daily, MiraLax 17 g p.o. twice a day, Zestril 2.5 mg daily. REVIEW OF SYSTEMS: No headache. No rhinitis. Has a cough, shortness of breath. No chest pain. No nausea. No vomiting. No diarrhea. Does have a leg swelling. PHYSICAL EXAMINATION: VITAL SIGNS: Temp is 98, heart rate 65, respiratory rate is 20, blood pressure 101/36, pulse ox is 96% on nasal cannula. HEENT: Moist mucous membrane. Crowded airway. Mallampati score is 4. NECK: Supple. No JVD. LUNGS: Have scattered rhonchi, prolonged expiratory phase. HEART: S1 and S2. ABDOMEN: Soft, nontender. No organomegaly. EXTREMITIES: Does have edema. NEUROLOGICAL: Awake and alert. Follows simple command. LABORATORY DATA: Shows hemoglobin 9.6, hematocrit 30, WBC 7.9, platelet is 226, D-dimer 331. ABG showed pH 7.39, pCO2 is 32, O2 of 61. Sodium 146, potassium 5.1, chloride 104, bicarbonate 20, BUN 72, creatinine 13.8, glucose is 89, calcium is 9.9, phosphorus 9.5, magnesium 2.4, iron is 39, AST 31, ALT 28, alk phos is 64. ProBNP is 28,800. Albumin 4.2. CAT scan of the chest is done in ER shows no pulmonary embolism, prominent pulmonary artery suggestive of pulmonary hypertension. IMPRESSION AND PLAN: Chronic obstructive lung disease, obstructive sleep apnea syndrome, renal failure, dialysis dependent, diabetes, atrial fibrillation, also have valvular heart disease with severe aortic regurgitation, pulmonary hypertension. We will restart the patient on bilevel positive airway pressure while sleeping, inhaled bronchodilator. Cardiology followup. Gastric prophylaxis. Sequential compression device to lower extremity. The patient recommended to get a pulmonary function test upon discharge as outpatient. Follow up labs in the morning. Thank you and we will follow with you. Kathryn Soria MD
[2017-07-19 06:53] LABS: BASO # 0.02 K/mm3 (0.0-2.0); BASO % 0.3 % (0.0-3.0); EOS # 0.4 (0.0-0.7); EOS % 5.8 % (1.5-5.0); GRAN # 4.54 (1.4-6.5); GRAN % 69.9 % (50.0-68.0); HEMOGLOBIN 9.9 g/dL (14.0-18.0); LYMPH # 1.1 (1.2-3.4); LYMPH % 16.2 % (22.0-35.0); MEAN CELL VOLUME 90.9 fl (80.0-105.0); MEAN CORPUSCULAR HEMOGLOBIN 29.1 pg (25.0-35.0); MEAN PLATELET VOLUME 9.4 fl (7.0-11.0); MONO # 0.5 (0.1-0.6); MONO % 7.8 % (1.0-6.0); RBC 3.4 10^6/uL (3.5-6.1); RED CELL DISTRIBUTION WIDTH 16.6 % (11.5-14.5); WHITE BLOOD COUNT 6.5 10^3/ul (4.5-11.0)
[2017-07-19 07:02] LABS: IRON 22 ug/dL (45-180)
[2017-07-19 07:11] LABS: % IRON SATURATION 9 % (20-55); TOTAL IRON BINDING CAPACITY 245 ug/dL (261-462)
[2017-07-19 07:34] LABS: ALB/GLOB RATIO 1.3 (1.1-1.8); ALBUMIN 3.8 g/dL (3.0-4.8); ALT/SGPT 32 U/L (7-56); AST/SGOT 29 U/L (17-59); BLOOD UREA NITROGEN 53 mg/dL (7-21); CALCIUM 9.3 mg/dL (8.4-10.5); GFR AFRICAN-AMERICAN 6; GFR NON-AFRICAN AMERICAN 5; HDL CHOLESTEROL 34 mg/dL (29-60); LDL CHOLESTEROL < 30 mg/dL (0-129)
[2017-07-19] MEDS: Levalbuterol 1.25 MG/3 ML Inhal Soln UD IH PRN ×2 (08:41→15:40)
[2017-07-19] MEDS: Budesonide 0.5 mg/2 ml Inhal Susp UD IH SCH ×2 (08:41→21:15)
--- NOTE | 2017-07-19 09:53 | HP ---
DATE OF EXAM: 07/18/2017 CHIEF COMPLAINT: Shortness of breath. HISTORY OF PRESENT ILLNESS: Mr. Shayan Tellez is a 66-year-old male with past medical history of COPD; congestive heart failure; hypertension; end-stage renal disease, on hemodialysis 3 times a week came to the emergency department for evaluation of status post near-syncopal episode while driving associated with shortness of breath. Patient states that he takes 2 liters of oxygen at night when needed for his shortness of breath. Patient also reports chronic bilateral knee pain, obesity. Patient denies any fever, chills, nausea, vomiting, diarrhea. No abdominal pain. No back pain, neck pain, headache, dizziness, or other big complaints. PAST MEDICAL HISTORY: Congestive heart failure, hypertension, COPD, dialysis 3 times a week, bilateral leg edema, history of cystoscopy, left arm shunt for dialysis. FAMILY HISTORY: Father and mother, noncontributory. HABITS: Former smoker. Now no smoking, no drugs, no ethanol. ALLERGIES: PATIENT IS NOT ALLERGIC TO ANY MEDICATION. HOME MEDICATIONS: Patient does not remember. REVIEW OF SYSTEMS: Patient was seen and examined at bedside in his room in the Telemetry. Looks like no nausea, vomiting. No headache. No fever, no chills. No chest pain. Sometimes getting shortness of breath. No hematuria, hematochezia. PHYSICAL EXAMINATION: VITAL SIGNS: Temperature 97.8, pulse 72, respiratory rate 24, blood pressure 118/52, pulse oximetry 92. HEENT: Head was normocephalic and atraumatic. Eyes, PERRLA. Extraocular muscles intact. Conjunctivae clear. Nose patent. NECK: Supple. No carotid bruit. No JVD or thyromegaly. CHEST: Bilaterally symmetrical. HEART: S1 and S2 positive. LUNGS: Clear to auscultation. ABDOMEN: Soft, bowel sounds present. No organomegaly. EXTREMITIES: No edema. No cyanosis. NEUROLOGIC: Patient is awake, alert. Moving all four extremities. No focal deficits. LABORATORY DATA: White blood cells 7.9, hemoglobin 9.6, hematocrit 30, platelet 226. Sodium 146, potassium 5.1, BUN 72, creatinine 13.8, glucose 77. ASSESSMENT AND PLAN: Mr. Shayan Tellez is a 66-year-old male with anemia; hyperkalemia; renal insufficiency, on dialysis 3 times a week; came with shortness of breath, and admitted for near syncope, congestive heart failure exacerbation. Has history of chronic obstructive pulmonary disease; hypertension; end-stage renal disease, on hemodialysis 3 times a week; obesity; history of bilateral edema; dusky dry skin, nonpitting; left forearm shunt; gastroesophageal reflux disease. Gastrointestinal and deep vein thrombosis prophylaxis. Repeat labs. CT of chest done. Knee x-ray done. Chest x-ray done. Seen by Dr. Manish Beckham, the patient's occasional caregiver. No pulmonary edema, prominent main pulmonary artery, fair caliber. Pulmonary arterial hypertension . No aortic aneurysm dissection, pulmonary parenchyma can be seen in the uneven perfusion, ventilation and/or air trapping. right calcified pleural plaques can be seen in the prior asbestos skin exposure. We will repeat labs and we will follow up. Dione Tijerina MD MICKEY
[2017-07-19] MEDS: POLYETHYLENE GLYCOL 3350 17 GM/Dose PACKET PO SCH ×2 (11:03→17:09)
[2017-07-19 12:33] LABS: FOLATE 16.4 ng/mL
--- NOTE | 2017-07-19 15:54 | PN ---
DATE: 07/19/2017 PULMONARY PROGRESS NOTE REFERRING PHYSICIAN: Dione Tijerina MD SUBJECTIVE: The patient is lying in the bed, head at 45 degrees. Has dialysis done yesterday, feels better, tolerated BiPAP well. No headache, no rhinitis. Still gets short of breath with minimal exertion. No chest pain, no nausea, no vomiting, no diarrhea. Decreased leg swelling. OBJECTIVE: GENERAL: In no acute distress. VITAL SIGNS: Temperature is 98, heart rate is 64, respiratory rate is 20, blood pressure 106/52, pulse ox 94% on nasal cannula. HEENT: Moist mucous membrane. Crowded airway. NECK: Supple. No JVD. LUNGS: Few crackles at the bases and scattered rhonchi. HEART: S1 and S2. ABDOMEN: Soft and nontender. No organomegaly. EXTREMITIES: He does have edema, but decreased. NEUROLOGICAL: Awake and alert. Follows simple command. MEDICATIONS: He is on Coreg 3.125 mg twice a day, Daliresp 500 mcg daily, Ecotrin 81 mg daily, Eliquis 2.5 mg twice a day, MiraLax 17 g twice a day, PhosLo with meals, budesonide inhaled twice a day, Singulair 10 mg at bedtime, Xopenex inhaled every 6 hours p.r.n., Zestril 2.5 mg daily. LABORATORY DATA: Shows hemoglobin 9.9, hematocrit 30.9, WBC 6.5, platelet count is 201. Sodium 142, potassium 4, chloride 96, bicarbonate 29. BUN 53, creatinine 10.6. Glucose 76, hemoglobin A1c 6.2. Calcium 9.3, phosphorus 8.4, magnesium 2.2. AST 29, ALT 32, alkaline phosphatase is 65. TSH is 0.19. IMPRESSION AND PLAN: Chronic obstructive lung disease; obstructive sleep apnea syndrome; renal failure, dialysis dependent; diabetes; atrial fibrillation; history of valvular heart disease with severe aortic regurgitation; pulmonary hypertension; morbid obesity. The patient refused to take afterload wastewater manager claiming the blood pressure was too low and does not feel well. Pulmonary point of view, continue bronchodilator, keep head at 45 degrees. Encourage BiPAP use, on anticoagulation. Gastric prophylaxis. Fall precaution. Cardiology followup. May need cardiac intervention for severe valvular heart disease. Thank you and we will follow with you. Kathryn Soria MD [facility] # [id number]
--- NOTE | 2017-07-19 16:33 | PN ---
DATE: 07/19/2017 LOCATION: The patient in room 275, bed 2. REASON FOR CONSULTATION AND FOLLOWUP: Shortness of breath, chronic atrial fibrillation, COPD, pulmonary hypertension, end-stage renal failure on dialysis, noncompliant with medications. HISTORY OF PRESENT ILLNESS: Patient is a very poor compliant patient, does not follow the diet and medication properly and followup. He is in chronic renal failure on dialysis three times a week, developed shortness of breath and along with that he felt dizzy and he felt like that he is going to pass out. Denies any chest pain or palpitation. Patient was given dialysis and his shortness of breath has improved. Patient was sitting at bedside without any chest pain or palpitations. PHYSICAL EXAMINATION: VITAL SIGNS: Blood pressure 102/60, respirations 20, pulse 77, temperature 97.6. HEENT: Head is normocephalic. Eyes: Pupils normal. Conjunctivae pale. NECK: JVP low. Carotids equal. THORAX: AP diameter normal. LUNGS: No significant rales. CARDIOVASCULAR: S1 and S2. ABDOMEN: Protuberant. No organomegaly. EXTREMITIES: No clubbing, no cyanosis. LABORATORY DATA: WBC 6.5, hemoglobin 9.9, hematocrit 30.9, platelets 201. Sodium 142, potassium 4, BUN 53, creatinine 10.6, glucose 76. AST and ALT normal. Total protein, albumin normal. DIAGNOSTIC DATA: Chest x-ray suggestive of congestive changes. CT of the chest no evidence of pulmonary embolism. PREVIOUS CARDIAC WORKUP: Patient had stress test on 05/23/2017, IV Lexiscan stress test, which shows normal ejection fraction of 54%. Echocardiography on 03/01/2017, ejection fraction of 65%, right ventricle moderately dilated, systolic function [id number] reduced of the right ventricle, severe aortic regurgitation, moderate to severe mitral regurgitation, moderate to severe tricuspid regurgitation, right ventricular systolic pressure of 112 mmHg consistent with severe pulmonary hypertension. Patient was in atrial fibrillation at the time of the echo. Patient has cardiac catheterization 4 years ago at [facility] and he was told there is no significant coronary artery disease. DIAGNOSES: Shortness of breath related to combination of congestive heart failure and chronic obstructive pulmonary disease. Congestive heart failure on the basis of renal failure. Patient eating salt and drinking lot of beverages and fluid so probably volume overload. Also due to valvular heart disease, patient has severe aortic regurgitation, [id number] mitral regurgitation, [id number] tricuspid regurgitation, severe pulmonary hypertension, obesity, end-stage renal disease on dialysis, anemia, borderline troponin due to mainly secondary to end-stage renal disease, shortness of breath also combination of congestive heart failure, chronic obstructive pulmonary disease and obesity. Patient also has sleep apnea, poor compliant. Patient so continue dialysis as per Renal. Patient is on carvedilol 3.125 b.i.d., Daliresp 500 mcg p.o. daily, aspirin 81 daily, Eliquis 2.5 mg b.i.d., Singulair 10 mg at bedtime, Xopenex hand nebulizer therapy, lisinopril 2.5 mg p.o. daily. Again discussed with patient to be compliant and follow the diet and medication and medical followup. We will follow up with you. Kathryn Bennett MD
--- NOTE | 2017-07-19 17:37 | CP.PCM.PCO ---
Physician Communication Note - Physician Communication Note Physician Communication Note: D/c cancelled due to patient feeling lightheaded and SOB
--- NOTE | 2017-07-19 22:31 | PN ---
DATE: 07/19/2017 SUBJECTIVE: Patient is seen sitting in bed. He is awake, he is alert, he is comfortable. He denies any pain at present. He complains of dizziness and shortness of breath yesterday. Today, he feels better. PHYSICAL EXAMINATION: GENERAL: Obese elderly male, sitting in bed. VITAL SIGNS: Blood pressure 110/44, heart rate 66, respiratory rate 18, temperature 98.6. HEENT: Normocephalic, atraumatic, positive pallor. NECK: Supple, no JVD. LUNGS: Bilateral equal air entry, bilateral equal expansion, no rales. CARDIAC: S1, S2. Regular rate and rhythm. No murmur, no rub. ABDOMEN: Obese, distended, soft, nontender, bowel sounds present. EXTREMITIES: 1+ pitting edema of the lower extremities. INTAKE AND OUTPUT: 840/not charted. LABORATORY DATA: WBC 6.5, hemoglobin 9.9, hematocrit 30.9, platelets 201. Sodium 142, potassium 5, chloride 96, CO2 of 29, BUN 53, creatinine 0.6, glucose 76, calcium 9.3, phosphorus 8.4, magnesium 2.2, iron 22, saturation 9%. CT chest: No pulmonary embolus, dominant main right pulmonary artery, pulmonary hypertension consideration. X-ray of the knee: Bilateral osteoarthrosis, multi-compartmental left knee is more severely affected. CURRENT MEDICATIONS: Coreg 3.125 b.i.d., Daliresp, Ecotrin, Eliquis, MiraLax, PhosLo, Singulair, Xopenex, lisinopril. ASSESSMENT: 1. End-stage renal disease status post dialysis yesterday. 2. Severe pulmonary hypertension, severe valvular heart disease, aortic insufficiency, tricuspid regurgitation. 3. Atrial fibrillation. 4. Anemia of chronic kidney disease, low iron stores. 5. Secondary hyperparathyroidism, hyperphosphatemia. 6. Obstructive sleep apnea. 7. Hepatitis C. 8. Chronic obstructive pulmonary disease. PLAN: 1. Cardiology followup. 2. Aggressive ultrafiltration, on dialysis. 3. Increased phosphate binders. 4. Load with IV iron on dialysis. Clare Winkler MD [facility] # [id number]
[2017-07-20 06:05] VITALS: O2SAT 94
--- NOTE | 2017-07-20 07:06 | PN ---
DATE: 07/19/2017 SUBJECTIVE: Patient was seen and examined on the bedside, looking comfortable. No nausea, vomiting, or diarrhea. No hematuria or hematochezia. I saw the patient on 07/19/17, was feeling better, early-day event noted. Discussion done with nurse practitionerKelsey about early-day event. No fever. No chills. But late evening, house physician saw the patient and nurse called me that he was having shortness of breath, feeling dizzy; BiPAP given, after that he started feeling better. Decreased swelling of the leg. PHYSICAL EXAMINATION: VITAL SIGNS: Temperature 98, heart rate 64, respiratory rate 20, blood pressure 116/52, pulse oximetry 94% on nasal cannula. HEENT: Head is normocephalic and atraumatic. Eyes PERRLA. Extraocular muscles are intact. Conjunctivae clear. Nose patent. Mucous membranes moist. NECK: Supple. No carotid bruits, JVD or thyromegaly. CHEST: Bilaterally symmetrical. HEART: S1 and S2 positive. LUNGS: Clear to auscultation. ABDOMEN: Soft. Bowel sounds present. No organomegaly. EXTREMITIES: No edema. No cyanosis. NEUROLOGIC: The patient is awake and alert. Moving all 4 extremities. No focal deficits. MEDICATIONS: Coreg, Daliresp, Ecotrin, Eliquis, MiraLax, PhosLo with meals, Singulair, Xopenex, Zestril. LABORATORY DATA: Hemoglobin 9.9, hematocrit 30.9, white blood cell 6.5, platelets 201. BUN 53, creatinine 10.6, glucose 76, hemoglobin A1c 6.2, AST 23, ALT 32. ASSESSMENT AND PLAN: Mr. Shayan Tellez is a 66-year-old male with chronic obstructive lung disease; obstructive sleep apnea syndrome; renal failure, dialysis dependent, three times a week; diabetes mellitus; atrial fibrillation, history of valvular heart disease with severe aortic regurgitation, pulmonary hypertension; morbid obesity. Patient refused to take afterload reduction claiming the patient's blood pressure was too low and does not feel well. Continue bronchodilators, Keep head elevated at 45 degrees, encourage BiPAP use, on anticoagulation, getting dialysis . Getting deep vein thrombosis prophylaxis. Pulmonary and Cardiology is on the case. May need cardiac intervention for severe valvular heart disease. Got BiPAP, end of the day he was having shortness of breath, thus BiPAP given and Pulmonary consult called. We will follow up. Dione Tijerina MD [facility]
[2017-07-20] MEDS: Budesonide 0.5 mg/2 ml Inhal Susp UD IH SCH (08:15)
[2017-07-20] MEDS ORDERED: Iron Sucrose 100 mg/5 ml Inj IVP ONE (10:32)
[2017-07-20] MEDS ORDERED: Iron Sucrose 100 mg/5 ml Inj IVP SCH (10:45)
[2017-07-20] MEDS: POLYETHYLENE GLYCOL 3350 17 GM/Dose PACKET PO SCH (11:36)
[2017-07-20 11:59] VITALS: RESP 19
--- NOTE | 2017-07-20 12:09 | CP.PCM.PN ---
Subjective - Date & Time of Evaluation Date of Evaluation: 07/20/17 Time of Evaluation: 06:35 - Subjective Subjective: Awake, on wheelchair going to hemodialysis, denies chest pain, denies shortness of breath Reason for consultation and follow up: Cardiac evaluation,near syncope while driving associated with shortness of breath, CHF, COPD, Hypertension, ESRD on hemodialysis (Monday, , Monday), home oxygen 2l/min, chronic bilateral knee pain. Seen and examined by me and Dr. Corona Objective - Vital Signs/Intake and Output Vital Signs (last 24 hours): Temp Pulse Resp BP Pulse Ox 97.6 F 72 19 101/39 L 94 L 07/20/17 11:58 07/20/17 11:58 07/20/17 11:58 07/20/17 11:58 07/20/17 06:00 Intake and Output: 07/20/17 07/20/17 06:59 18:59 Intake Total 180 Balance 180 - Medications Medications: Current Medications Apixaban (Eliquis) 2.5 mg PO BID [facility] PRN Reason: Protocol Last Admin: 07/20/17 11:37 Dose: 2.5 mg Aspirin (Ecotrin) 81 mg PO DAILY [facility] Last Admin: 07/20/17 11:36 Dose: 81 mg Budesonide (Pulmicort Respules) 0.5 mg IH [id number] [facility] Last Admin: 07/20/17 08:15 Dose: Not Given Calcium Acetate (Phoslo) 1,334 mg PO WM [facility] Last Admin: 07/20/17 11:49 Dose: Not Given Carvedilol (Coreg) 3.125 mg PO BID [facility] Last Admin: 07/20/17 11:43 Dose: Not Given Levalbuterol HCl (Xopenex) 1.25 mg IH [id number] PRN PRN Reason: Shortness of Breath Last Admin: 07/19/17 15:40 Dose: 1.25 mg Lisinopril (Zestril) 2.5 mg PO DAILY [facility] Last Admin: 07/20/17 11:43 Dose: Not Given Montelukast Sodium (Singulair) 10 mg PO HS [facility] Last Admin: 07/19/17 21:18 Dose: 10 mg Polyethylene Glycol (Miralax) 17 gm PO BID [facility] Last Admin: 05/24/18 11:36 Dose: 17 gm Roflumilast (Daliresp) 500 mcg PO DAILY [facility] Last Admin: 07/20/17 11:37 Dose: 500 mcg - Labs Labs: 07/19/17 06:30 07/19/17 06:30 - Constitutional Appears: No Acute Distress - Eye Exam Eye Exam: Normal appearance - ENT Exam ENT Exam: Mucous Membranes Moist - Respiratory Exam Respiratory Exam: Decreased Breath Sounds, NORMAL BREATHING PATTERN - Cardiovascular Exam Cardiovascular Exam: +S1, +S2 Additional comments: left Av shunt - GI/Abdominal Exam GI & Abdominal Exam: Soft, Normal Bowel Sounds - Exam Additional comments: Hemodialysis 3x a week Left AV shunt - Extremities Exam Extremities Exam: Normal Capillary Refill - Neurological Exam Neurological Exam: Alert, Awake, Oriented x3 - Psychiatric Exam Psychiatric exam: Normal Affect, Normal Mood - Skin Skin Exam: Intact, Normal Color, Warm Assessment and Plan - Assessment and Plan (Free Text) Assessment: A 66 year old male who came in to the ER due to near syncope while driving associated with shortness of breath, CHF, COPD, Hypertension, ESRD on hemodialysis (Monday, , Monday), home oxygen 2l/min, chronic bilateral knee pain.obese, non compliant with medication and diet.recent cardiac work up showed severe aortic and mitral regurgitation.Recommended valve surgery but refused. Plan: Seen patient prior to hemodialysis this morning and wanted information/discuss valve surgery. I told him I will come back or Dr. Corona to talk to him after hemodialysis. Dr. Corona met and talked to him after hemodialysis. Dr. Corona explained procedure to manage valvular disease,( repair or replacement ) recommended open heart surgery to fix the valves and patient refused. Patient only wanted non invasive or procedure that goes to groin or arms. Was supposed to be discharge yesterday however episode of dizziness thus discharge held. Lifestyle modifications Low salt diet Weight reduction Medication compliance Continue current treatment Continue current medications Plan and treatment discussed with Dr. Corona
[2017-07-20 17:33] VITALS: BP 112/55; TEMP 98.7
--- NOTE | 2017-07-20 17:35 | PN ---
DATE: 07/20/2017 SUBJECTIVE: The patient is seen lying in bed. He is just coming back from dialysis. He reports dizziness when he earlier got up. He also complains of weakness. PHYSICAL EXAMINATION: GENERAL: Obese elderly male lying in bed. VITAL SIGNS: Blood pressure 125/60, heart rate 72, respiratory rate 20, temperature 97.6. HEENT: Normocephalic, atraumatic, positive pallor. NECK: Supple, no JVD. LUNGS: Bilateral equal air entry, bilateral rhonchi, distant breath sounds. CARDIAC: S1 and S2, regular rate and rhythm, positive murmur, no rub. ABDOMEN: Obese, distended, soft, nontender, bowel sounds present. EXTREMITIES: Chronic stasis changes. INTAKE AND OUTPUT: Not charted. LABORATORY DATA: No new labs. CURRENT MEDICATIONS. Coreg 3.125 b.i.d., Daliresp, Ecotrin, Eliquis 2.5 b.i.d., MiraLax, PhosLo, Pulmicort, Singulair, Xopenex, Zestril, Venofer 100 mg given on dialysis. ASSESSMENT: 1. End-stage renal disease. 2. Severe aortic and mitral regurgitation. 3. Noninsulin-dependent diabetes mellitus. 4. Hypertension. 5. Chronic obstructive pulmonary disease. 6. Sleep apnea. 7. Anemia of chronic kidney disease. PLAN: 1. Stable dialysis. 2. No evidence of orthostatic hypotension. 3. Severe valvular heart disease, the patient wants to consider valvular surgery at a later date. 4. No objection to discharge. Clare Winkler MD
[2017-07-20 19:55] VITALS: PULSE 60
--- NOTE | 2017-07-20 22:14 | PN ---
DATE: 07/20/2017 PULMONARY PROGRESS NOTE REFERRING PHYSICIAN: Dione Tijerina MD SUBJECTIVE: The patient is sitting at side of the bed, wants to go home. Night was unremarkable. Status post dialysis. Seen by Cardiology for possible surgery for valve replacement. He feels better after dialysis. Cough and breathing is better. Tolerated BiPAP well. No nausea, no vomiting, no diarrhea. No leg pain or leg swelling. OBJECTIVE: GENERAL: In no acute distress. VITAL SIGNS: Temperature is 98, heart rate 74, respiratory rate is 18, blood pressure 125/60. HEENT: Moist mucous membrane. Crowded airway. NECK: Supple. No JVD. LUNGS: Have a fair airflow, with rhonchi. HEART: S1 and S2. ABDOMEN: Soft, nontender. No organomegaly. EXTREMITIES: There is no edema. NEUROLOGIC: Awake and alert. Follows simple commands. MEDICATIONS: Reviewed and noted; no new change in medication reported since yesterday. LABORATORY DATA: Reviewed; no new lab is available since yesterday. IMPRESSION AND PLAN: Chronic obstructive lung disease, obstructive sleep apnea syndrome, renal failure, dialysis dependent, diabetes, atrial fibrillation, cardiomyopathy with mostly valvular heart disease, with mostly severe aortic regurgitation. Also has pulmonary hypertension, morbid obesity. Case discussed with nursing staff. The patient being discharged home. We will write for Jered and Artem. The patient has nebulizer treatment at home. Also have a beta-rosanna and afterload building economist. The patient is advised to follow up with Cardiology. Also advised to come to my office to get pulmonary function tests to assess lung function and need to optimize pulmonary care. The patient expressed understanding. Thank you, and we will follow with you. Kathryn Soria MD
--- NOTE | 2017-07-21 08:01 | PN ---
DATE: 07/20/2017 Addendum for initial progress note dictated by our nurse practitioner, Leena Baez. REASON FOR ADDENDUM: The patient wanted to discuss again the plan. So, I sat with the patient after the patient had dialysis and mentioned that the patient has severe aortic regurgitation, cannot be managed by catheter. The patient wanted to do from the wrist, but I mentioned that we can do the cardiac catheterization, but the patient needs open heart surgery for aortic valve replacement. So far, the TAVR is for aortic stenosis. The patient understood, but does not want open heart surgery because of the past experience, so I suggested the patient as follows: 1. Emphasis on weight reduction. 2. Compliance with the medication and regular dialysis. 3. Avoid salty food diet. If the symptom does not improve, then we will consider cardiac catheterization in preparation for open heart surgery. If the patient is not willing for open heart surgery, cardiac catheterization would be not warranted because the patient had a cardiac catheterization done 4 years ago and was told no significant blockage, which end up in having complication and according to the because the patient more anesthesia and because of the pain and then he had a cardiac arrest according to the patient and that was happened in [facility] 4 years ago, so we will try to treat with aggressive medical treatment as above. Kathryn Corona MD
--- NOTE | 2017-07-21 14:34 | PQF CHF ---
07/21/17 Dr. Corona, CHF is documented. Please indicate type and severity, as listed below. Thank you. Clarification of your documentation is requested to better reflect the severity of illness and intensity of treatment of your patient. Indicators present [] Diagnosis of CHF and/or history of CHF [] BNP > 200 [] Imaging Finding of Pulmonary Edema /Pleural Effusions [] Fluid/Volume Overload [] Pitting edema [] Ejection Fraction < 40% (Indicative of Systolic Heart Failure) [] Ejection Fraction > 40% (Indicative of Diastolic Heart Failure) [] Dyspnea / Orthopenea / Paroxysmal Nocturnal Dyspnea [] Other: Location in the medical record that reflects the above clinical findings: [] Treatment Provided: [] PHYSICIAN'S RESPONSE Based on your medical judgment of the clinical indicators outlined above, are you treating this patient for a known or suspected: [] Acute CHF [] Systolic [] Diastolic [] Combined [x] Chronic CHF [] Systolic [x] Diastolic [] Combined [] Acute on Chronic CHF []Systolic [] Diastolic [] Combined [] CHF due hypertension [] Acute systolic []Chronic systolic [] Acute/ chronic systolic [] Other, please indicate: [] [] If Unable to Determine, please check the box, sign and date. Present On Admission (POA) Indicator: [] Present at the time of admission [] Not present at the time of admission [] Clinically Undetermined In responding to this query, please exercise your independent professional judgment. The fact that a question is asked does not imply that any particular answer is desired or expected. Thank you for your clarification on this documentation. If you have any questions please call:[ ] * Thank you, [ ] permastone applicator [facility]
== END 2017-07-20 20:32 | disposition home or self-care (01) | DRG 291 ==
LOC: ED 23:54 → ERH 07-18 06:01 → OBSVTOIN 07-18 06:01 → INTOOBSV 07-18 06:01 → 2RSO 07-18 06:44
PROVIDERS: ADMIT Internal Medicine; ATTEND Internal Medicine
DX: I13.2 Hypertensive heart and chronic kidney disease with heart failure and with stage 5 chronic kidney disease, or end stage renal disease (principal); N18.6 End stage renal disease; N25.81 Secondary hyperparathyroidism of renal origin; I50.32 Chronic diastolic (congestive) heart failure; J44.9 Chronic obstructive pulmonary disease, unspecified; I48.2 Chronic atrial fibrillation; I42.9 Cardiomyopathy, unspecified; I27.21 Secondary pulmonary arterial hypertension; I08.3 Combined rheumatic disorders of mitral, aortic and tricuspid valves; B19.20 Unspecified viral hepatitis C without hepatic coma; D63.1 Anemia in chronic kidney disease; E11.22 Type 2 diabetes mellitus with diabetic chronic kidney disease; E66.01 Morbid (severe) obesity due to excess calories; E83.39 Other disorders of phosphorus metabolism; E87.5 Hyperkalemia; G47.33 Obstructive sleep apnea (adult) (pediatric); K21.9 Gastro-esophageal reflux disease without esophagitis; Z68.34 Body mass index [BMI] 34.0-34.9, adult; Z79.01 Long term (current) use of anticoagulants; Z79.84 Long term (current) use of oral hypoglycemic drugs; Z79.899 Other long term (current) drug therapy; Z82.49 Family history of ischemic heart disease and other diseases of the circulatory system; Z86.74 Personal history of sudden cardiac arrest; Z87.891 Personal history of nicotine dependence; Z91.14 Patient's other noncompliance with medication regimen; Z91.19 Patient's noncompliance with other medical treatment and regimen; Z95.2 Presence of prosthetic heart valve; Z99.2 Dependence on renal dialysis; Z99.81 Dependence on supplemental oxygen